=== PATIENT | male | born 1960 | race Caucasian/White ===

== ENCOUNTER → 2020-10-08 11:08 | Outpatient (CLI) | payer OTHER, SELFPAY ==
[2020-10-09 08:28] LABS: SARS-CoV-2 RNA PCR Negative
== END ==
PROVIDERS: PCP Family Medicine Adolescent Medicine; Visit Provider Family Medicine Adolescent Medicine
DX: R50.9 Fever, unspecified (principal); R09.81 Nasal congestion; Z20.822 Contact with and (suspected) exposure to COVID-19
CPT/HCPCS: C9803; U0003; U0005

== ENCOUNTER 2020-10-27 03:05 | Emergency (ER) | payer OTHER, SELFPAY ==
[2020-10-27] VITALS (8 sets, daily range): BP systolic 107–138; BP diastolic 49–71; PULSE 87–104; RESP 14–21; TEMP 36.3; O2SAT 97–100
--- NOTE | ~2020-10-27 | CT_ITS ---
EXAMINATION: CT brain wo con DATE: 10/27/2020 03:39 INDICATION: Syncope. Fall. Head injury. TECHNIQUE: Computed tomography (CT) of the head was performed without intravenous contrast. The dose- length product was 681.00 mGy-cm. The mA was adjusted according to patient size. Iterative reconstruc tion technique was employed. COMPARISON: None FINDINGS: There is a focal hyperdensity at the foramen of Suárez measuring 8 mm. No ventriculomegaly or midline shift. Generalized brain parenchymal volume loss. There are scattered mild periventricular and subcortical white matter changes, most likely related to small vessel ischemic disease (microang iopathy). There is intracranial atherosclerosis. Small mucous retention cyst left maxillary sinus. Ma stoids pneumatized. No depressed skull fractures. IMPRESSION: 1. Small focal 8 mm hyperdensity near the foramen of Suárez. Considerations include hemorrhage given the history of recent trauma versus colloid cyst. Consider correlation with MRI. [employer] radiologist verbally discussed this case with clinician as per documentation in their report, which was faxed and scanned into PACS with this exam. Reviewed, dictated and finalized at location A. IMPRESSION: 1. Small focal 8 mm hyperdensity near the foramen of Suárez. Considerations inc lude hemorrhage given the history of recent trauma versus colloid cyst. Conside r correlation with MRI. [employer] radiologist verbally discussed this case with clinician as per document ation in their report, which was faxed and scanned into PACS with this exam.
--- NOTE | ~2020-10-27 | XR_ITS ---
XR chest 1V 10/27/2020 03:44 Indication: Syncope. History of A. fib. Bypass surgery. Procedure: AP view of the chest Comparison: Comparison to multiple prior studies sequentially, with oldest reviewed study dated 05/08. Findings: There are chronic patchy bilateral infiltrates peripherally. Small right pleural effusion. Status post median sternotomy for CABG. Heart size is normal. No pneumothorax. Impression: 1: Chronic bilateral peripheral infiltrates which may represents atelectasis/scarring, atypical pneum onia or chronic edema. Reviewed, dictated and finalized at location A. Impression: 1: Chronic bilateral peripheral infiltrates which may represents atelectasis/sc arring, atypical pneumonia or chronic edema.
--- NOTE | 2020-10-27 03:19 | ECG_ITS ---
Measurements Intervals [place] Rate: 97 P: MS: 0 QRS: -3 QRSD: 109 T: 145 QT: 330 QTc: 420 Interpretive Statements ATRIAL FIBRILLATION INCOMPLETE RIGHT BUNDLE BRANCH BLOCK CONSIDER ANTERIOR INFARCT, AGE INDETERMINATE HIGH LATERAL INFARCT, AGE INDETERMINATE BASELINE ARTIFACT- I, III, AVL, V4 ABNORMAL ECG Electronically Signed On 10-27-2020 8:11:21 CDT by Ad Jaramillo D.O.
[2020-10-27] MEDS: SODIUM CHLORIDE 0.9% IV 1,000 ML 500 ML IV CONT (03:37)
[2020-10-27 03:45] LABS: Basophils Percent Auto 0.6 % (0.2-1.2); Eosinophils Absolute Auto 0.1 K/mm3 (0-0.3); Eosinophils Percent Auto 1.9 % (0-4.4); Hematocrit 29.6 % (42.0-52.0); Hemoglobin 8.5 g/dL (14.0-18.0); Immature Granulocyte Absolute 0.03 K/mm3 (0.00-0.031); Immature Granulocyte Percent A 0.4 % (0-0.5); Lymphocytes Absolute Auto 1.29 K/mm3 (0.9-3.2); Lymphocytes Percent Auto 18.7 % (18.3-44.2); Mean Corpuscular HGB Conc 28.7 g/dl (32-36); Mean Corpuscular Hemoglobin 21.1 pg (26-34); Mean Corpuscular Volume 73.4 fl (80-100); Mean Platelet Volume 9.9 fl (7.4-10.4); Monocytes Absolute Auto 0.8 K/mm3 (0.1-0.6); Monocytes Percent Auto 11.5 % (2.6-8.5); Neutrophils Absolute Auto 4.6 K/mm3 (1.3-6.7); Neutrophils Percent Auto 66.9 % (45.5-73.1); Platelet Count Result 293 k/mm3 (150-375); Red Blood Count 4.03 M/mm3 (4.6-6.20); Red Cell Distribution Width 21.4 % (11.5-14.5); White Blood Count 6.9 K/mm3 (4.5-10.0)
[2020-10-27 03:58] LABS: Lactic Acid Reflex 1.9 mmol/L (0.7-2.1)
[2020-10-27 03:59] LABS: Alanine Aminotransferase 14 U/L (4-50); Albumin Level 4.2 g/dL (3.5-5.1); Alkaline Phosphatase 171 U/L (38-126); Anion Gap 9 mmol/L (8-16); Aspartate Amino Transferase 28 U/L (17-59); Bilirubin,Total 0.3 mg/dL (0.2-1.3); Blood Urea Nitrogen 18 mg/dL (9-20); Calcium 8.9 mg/dL (8.4-10.2); Carbon Dioxide 28 mmol/L (22-30); Chloride 103 mmol/L (98-107); Estimated CRCL calculation 80 ml/min; Estimated Glomerular Filt Rate > 60; Glucose 207 mg/dL (75-110); Lipase 138 U/L (23-300); Potassium 4.1 mmol/L (3.4-5.0); Sodium 140 mmol/L (137-145)
--- NOTE | 2020-10-27 04:00 | PC.NURSE ---
Patient started complaining of dizziness while talking to this RN at bedside-monitor showing heart rate in the 30's then jumped up to 140's. Patient had additional episodes-Dr Paiz called to bedside, external pacer pads placed in case of need-crash cart at bedside also. Patient denies any chest pain during episodes.
[2020-10-27 04:01] LABS: Hypochromasia 2+ (NORMAL); Platelet Estimate Adequate (Adequate)
[2020-10-27 04:02] LABS: Ovalocytes 1+ (NORMAL)
[2020-10-27 04:08] LABS: Troponin I 0.023 ng/mL (0.000-0.034)
--- NOTE | 2020-10-27 04:27 | ED.GENADULT ---
HPI - General Adult General Chief complaint: Dizziness Stated complaint: syncope, hit head Time Seen by Provider: 10/27/20 03:12 History of Present Illness HPI narrative: Patient 60-year-old gentleman who presents the emergency department with chief complaint of syncope. Patient reports he is a local convenience store and started feeling had a lightheaded and then the next thing he knows he hit his head against a shelf and woke up on the floor. Patient states that he has history of atrial fibrillation also history of a bypass before in the past patient states that currently he feels okay. Patient denies chest pain denies shortness of breath. Related Data Home Medications Medication Instructions Recorded Confirmed furosemide 40 mg PO BID PRN 06/05/19 06/05/19 metformin 1,000 mg PO BID 06/05/19 06/05/19 metoprolol tartrate 150 mg PO BID 06/05/19 06/05/19 zolpidem [Ambien] 10 mg PO HS 06/05/19 06/05/19 albuterol sulfate INHALATION 10/27/20 Allergies Allergy/AdvReac Type Severity Reaction Status Date / Time No Known Allergies Allergy Unknown Verified 10/27/19 16:52 Review of Systems Review of Systems: Narrative: A 10 system review of systems was completed on the patient and is negative except for what is stated in the HPI. Nursing and ancillary documentation was reviewed. PMFSH Comments Patient has history of cardiac disease cardiac bypass and atrial fibrillation COPD and diabetes Social history the patient denies illicit drug use Course Course Emergency Course: Note for the patient was having episodes of tacky bradycardia in the emergency department most likely the bradycardia is the cause for his syncopal episodes. A CT head was obtained that showed 8 possible intraventricular hemorrhage in the area of the foramen of Suárez Vital Signs Vital signs: Vital Signs Temperature 36.3 C L 10/27/20 03:12 Pulse Rate 99 10/27/20 03:12 Respiratory Rate 14 10/27/20 03:12 Blood Pressure 110/49 L 10/27/20 03:12 Pulse Oximetry 100 10/27/20 03:12 Temperature 36.3 C L 10/27/20 03:12 Pulse Rate 99 10/27/20 03:12 Respiratory Rate 14 10/27/20 03:12 Blood Pressure 110/49 L 10/27/20 03:12 Pulse Oximetry 100 10/27/20 03:12 Medical Decision Making Vital Signs Vital Signs: Vital Signs Temperature 36.3 C L 10/27/20 03:12 Pulse Rate 99 10/27/20 03:12 Respiratory Rate 14 10/27/20 03:12 Blood Pressure 110/49 L 10/27/20 03:12 Pulse Oximetry 100 10/27/20 03:12 Temperature 36.3 C L 10/27/20 03:12 Pulse Rate 99 10/27/20 03:12 Respiratory Rate 14 10/27/20 03:12 Blood Pressure 110/49 L 10/27/20 03:12 Pulse Oximetry 100 10/27/20 03:12 Lab Data Result diagrams: 10/27/20 03:33 10/27/20 03:33 Labs: Lab Results 10/27/20 10/27/20 10/27/20 Range/Units 03:33 03:33 03:33 WBC 6.9 (4.5-10.0) K/mm3 RBC 4.03 L (4.6-6.20) M/mm3 Hgb 8.5 L (14.0-18.0) g/dL Hct 29.6 L (42.0-52.0) % MCV 73.4 L (80-100) fl MCH 21.1 L (26-34) pg MCHC 28.7 L (32-36) g/dl RDW 21.4 H (11.5-14.5) % Plt Count 293 (150-375) k/mm3 MPV 9.9 (7.4-10.4) fl Immature Gran % (Auto) 0.4 (0-0.5) % Neut % (Auto) 66.9 (45.5-73.1) % Lymph % (Auto) 18.7 (18.3-44.2) % [place] % (Auto) 11.5 H (2.6-8.5) % Eos % (Auto) 1.9 (0-4.4) % Baso % (Auto) 0.6 (0.2-1.2) % Lymph # (Auto) 1.29 (0.9-3.2) K/mm3 [place] # (Auto) 0.8 H (0.1-0.6) K/mm3 Eos # (Auto) 0.1 (0-0.3) K/mm3 Baso # (Auto) 0.0 (0.0-0.1) K/mm3 Abs Immat Gran (auto) 0.03 (0.00-0.031) K/mm3 Absolute Neuts (auto) 4.6 (1.3-6.7) K/mm3 Absolute Nucleated RBC 0.0 (0.0-0.012) K/mm3 Nucleated RBC % 0.0 (0.0-0.2) % Platelet Estimate Adequate (Adequate) Hypochromasia 2+ (NORMAL) Ovalocytes 1+ (NORMAL) Sodium 140 (137-145) mmol/L Potassium 4.1 (3.4-5.0) mmol/L Chloride 103 (98-107) mmol/L Car
--- NOTE | 2020-10-27 05:20 | PC.NURSE ---
Addendum entered by Dorothy Bray 10/27/20 05:21: i contacted [employer], [facility] and [employer] and all companies did not have the trucks or it would be hours from now Original Note: called hernandez for lights and sirens to usman cook in route
--- NOTE | 2020-10-27 05:37 | PC.NURSE ---
hernandez has arrived
== END 2020-10-27 05:50 | disposition short-term general hospital (02) ==
PROVIDERS: Emergency Provider Emergency Medicine; PCP Family Medicine Adolescent Medicine
DX: I49.5 Sick sinus syndrome (principal); R55 Syncope and collapse; S06.369A Traumatic hemorrhage of cerebrum, unspecified, with loss of consciousness of unspecified duration, initial encounter; W18.30XA Fall on same level, unspecified, initial encounter
CPT/HCPCS: 36415; 70450; 71045; 80053; 83605; 83690; 84484; 85025; 93005; 96360; 96361; 99291; J7030; J7040

== ENCOUNTER → 2021-03-15 02:11 | Outpatient (CLI) | payer OTHER, SELFPAY ==
[2021-03-16 15:33] LABS: SARS-CoV-2 RNA PCR Negative
== END ==
PROVIDERS: PCP Family Medicine Adolescent Medicine; Visit Provider Family Medicine Adolescent Medicine
DX: R50.9 Fever, unspecified (principal); M79.10 Myalgia, unspecified site
CPT/HCPCS: C9803; U0003; U0005

== ENCOUNTER → 2021-06-22 12:47 | Outpatient (CLI) | payer OTHER, SELFPAY ==
--- NOTE | ~2021-06-22 | XR_ITS ---
XR foot LT min 3V DATE: 06/22/2021 13:33 INDICATION: Bilateral hindfoot and heel pain TECHNIQUE: 4 views COMPARISON: None FINDINGS: There is prominent anterior tibial and dorsalis pedis artery calcification. There is soft t issue swelling of the dorsum of the forefoot. Diffuse osteopenia. Prominent plantar and posterior calcaneal enthesopathy. There is mild osteoarthritis at the tarsal area and first metatarsophalangeal joint. IMPRESSION: Prominent plantar and posterior calcaneal enthesopathy Mild osteoarthritis at the tarsal and first metatarsophalangeal joint Osteopenia Arterial calcification Reviewed, dictated and finalized at location A. LY CHAIN PROGRAM MANAGER
--- NOTE | ~2021-06-22 | XR_ITS ---
XR foot RT min 3V DATE: 06/22/2021 13:32 INDICATION: Bilateral hindfoot and heel pain TECHNIQUE: 4 views COMPARISON: None FINDINGS: Prominent plantar and posterior calcaneal enthesopathy, without erosive change or periostit is. There is mild osteoarthritis at the first metatarsophalangeal joint. No fracture, dislocation, periosteal reaction or bone destruction. Anterior tibial and dorsalis pedis and metatarsal artery calcifications are noted; consider possible diabetes. IMPRESSION: Osteopenia Prominent plantar and posterior calcaneal enthesopathy Mild osteoarthritic arthritis at first metatarsophalangeal joint Arterial calcifications including metatarsal artery, suggesting possible diabetes Reviewed, dictated and finalized at location A. KERCHIEF PRESSER IMPRESSION: Osteopenia Prominent plantar and posterior calcaneal enthesopathy Mild osteoarthritic arthritis at first metatarsophalangeal joint Arterial calcifications including metatarsal artery, suggesting possible diabet es
== END ==
PROVIDERS: PCP Family Medicine Adolescent Medicine; Visit Provider Family Medicine Adolescent Medicine
DX: M77.32 Calcaneal spur, left foot (principal); M19.072 Primary osteoarthritis, left ankle and foot; M85.871 Other specified disorders of bone density and structure, right ankle and foot; M77.31 Calcaneal spur, right foot; M19.071 Primary osteoarthritis, right ankle and foot
CPT/HCPCS: 73630

== ENCOUNTER 2021-09-21 12:30 | Outpatient (RCR) | payer OTHER, SELFPAY ==
--- NOTE | 2021-08-29 09:47 | PTOPEVAL ---
PHYSICAL THERAPY EVALUATION AND PLAN OF CARE 08-29-21 Thank you for referring Dmitri Bergeron to [facility] for the diagnosis of B LE lymphdedema. He is scheduled to be seen for therapy? 3 x/week for 5 weeks. Please review, sign, date and return this plan of care SHAHEED. I agree with and certify that the following plan of care is medically necessary. Referring Physician Date Attending Provider: Adam Roberson MD *PT Outpatient Evaluation Document 08/29/21 08:45 SONA (Rec: 08/29/21 09:47 SONA [id number]) Past Medical History Source of Past Medical History Recalled from Previous Visit, Confirmed with Patient/Family Neurological History Hx Neurological Disorders No Significant History Cardiovascular History Hx Atrial Fibrillation Yes Hx Coronary Artery Bypass Graft Yes Hx Coronary Artery Disease Yes Hx Pacemaker Yes Respiratory History Hx Chronic Obstructive Pulmonary Disease Yes: smoker- decreased (COPD) Hx COVID-19 Yes: 2019 Gastrointestinal History Hx Ulcer Yes: bleeding ulcers- cauthaurized Musculoskeletal History Hx Arthritis Yes: B shoulder and hand arthritis Hx Other Musculoskeletal Disorders Yes: B plantar fasciitis Endocrine History Hx Diabetes Yes: Type 2 HEENT History Hx Sinus Problems Yes: allergies Other History Hx Other Medical Conditions Yes: B PVD in LE's; Evaluation Information Problem Diagnosis swelling and pain legs and feet Onset January 2021 Prior Level of Function Activity Level (Last 3 Months) 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, physical work Activity of Daily Living Ability Independent Indoor/Home Mobility Independent Community Mobility Independent Stairs Ability Independent Functional Cognition (Planning, Shopping Independent , Taking Medications) Cooking Yes Cleaning Yes Laundry Yes Shopping Yes Driving Yes Home Setting Home Type House Mobility Assistive Devices (Used Last 3 None Months) Comments Additional Prior Level of Function is not working due to medical Comments issues--Jun 2021; Pain Assessment Timing of Pain Assessment Timing of Pain Assessment Assessment Pain Scale Pain Scale Used Numeric (1 - 10) Self Report Pain Assessment Bilateral Leg(s) Reported Pain Level 4 Pain Radiation Left
--- NOTE | 2021-09-21 14:55 | PCPTNOTE ---
PHYSICAL THERAPY DISCHARGE 09-21-21 Attending Provider: Adam Roberson MD Patient:Dmitri Bergeron Date of :1960 Mr. Bergeron has received a total of 11 PT sessions, from August 29 to today for the diagnosis of B LE lymphedema. The goals have been achieved and he will be discharged from PT at this time. Circumferential measurements from the bottom of the foot to 72 cm: R leg is 593.3 cm, reduced by 24.8 cm and the L leg is 576 cm, reduced by 33.8 cm, compared to the initial evaluation. His skin integrity has improved, but he still has a superficial wound over the R lower leg, which he is putting a dressing over it to protect it from rubbing his pants. Dmitri has compression garments- Circaid Juxtafit for R and L lower leg and PAC band foot/ankle pieces, which he is independent with donning/doffing and reports they are comfortable. Thank you for referring Mr. Bergeron to [facility]. Please review, sign, date and return this discharge summary SHAHEED. I have been updated about the patient's current status and I agree with discharge from the above service at this time. Referring Physician Date
== END 2021-09-22 08:58 | disposition home or self-care (01) ==
LOC: ANHPT 12:30
PROVIDERS: PCP Family Medicine Adolescent Medicine; Visit Provider Orthopaedic Surgery
DX: I87.2 Venous insufficiency (chronic) (peripheral) (principal); L97.301 Non-pressure chronic ulcer of unspecified ankle limited to breakdown of skin; M79.671 Pain in right foot; M79.672 Pain in left foot; M72.2 Plantar fascial fibromatosis
CPT/HCPCS: 29581; 97140; 97161

== ENCOUNTER 2022-07-09 00:05 | Inpatient (IN) | payer OTHER, SELFPAY ==
[2022-07-09] VITALS (35 sets, daily range): BP systolic 99–149; BP diastolic 42–76; PULSE 37–96; RESP 16–27; TEMP 36.3–36.8; O2SAT 86–100
--- NOTE | ~2022-07-09 | XR_ITS ---
XR chest 1V portable 07/10/2022 11:07 Indication: Weakness and shortness of breath Procedure: AP portable chest Comparison: Comparison to multiple prior studies sequentially, with oldest reviewed study dated 11/2018. Findings: Status post median sternotomy for CABG. Moderate cardiomegaly. There is diffuse bilateral a irspace disease which has progressed. Small pleural effusions. No pneumothorax. Pacemaker leads are s table. Impression: 1: Interval progression of diffuse bilateral airspace disease which may represent edema or pneumonia. 2: Small pleural effusions. Reviewed, dictated and finalized at location A. ND MANAGER Impression: 1: Interval progression of diffuse bilateral airspace disease which may represe nt edema or pneumonia. 2: Small pleural effusions.
--- NOTE | ~2022-07-09 | US_ITS ---
Impression: 1: Unremarkable renal ultrasound. No stones, masses or hydronephrosis. US renal BI 07/09/2022 11:41 Procedure: Realtime transabdominal ultrasound of the kidneys and bladder. Indication: Acute renal insufficiency Comparison: No prior studies for comparison. Findings: Renal echotexture is normal bilaterally without hydronephrosis, contour deforming mass or r enal calculus. The right kidney measures 11.1 cm and left kidney measures 12.0 cm. Bladder within no rmal limits. Mildly enlarged prostate gland. Impression: 1: Unremarkable renal ultrasound. No stones, masses or hydronephrosis. Reviewed, dictated and finalized at location A. LIFTER BACON
--- NOTE | ~2022-07-09 | US_ITS ---
US abdomen limited INDICATION: Elevated liver function tests. Increased bilirubin. PROCEDURE: Realtime right upper abdominal ultrasound. COMPARISON: No prior studies for comparison. FINDINGS: The pancreas is normal without focal mass or pancreatic ductal dilation. Liver echotexture is unremarkable. There is mild enlargement of the liver measuring 16.8 cm. There is normal directio nal flow in the portal vein. There are gallstones with gallbladder wall thickening and pericholecystic fluid. Findings compatible with cholecystitis. Trace ascites. Common bile duct measures 5 mm. No sonographic Oliveira's sign. IMPRESSION: 1: Cholelithiasis with gallbladder wall thickening and pericholecystic fluid, consistent with cholecy stitis. Reviewed, dictated and finalized at location A. ROL PANEL OPERATOR CRUDE UNIT IMPRESSION: 1: Cholelithiasis with gallbladder wall thickening and pericholecystic fluid, c onsistent with cholecystitis.
--- NOTE | ~2022-07-09 | XR_ITS ---
XR chest ET placement DATE: 07/10/2022 15:59 INDICATION: ET tube placement TECHNIQUE: Portable AP view on 07/10/2022 at 1551 hours COMPARISON: 07/10/2022 portable AP chest at 1101 hours FINDINGS: ET tube tip is approximately 5.4 cm above yahir. NG tube in the stomach, progressing into the body of the stomach and then turning superiorly, distal tip overlying the gastric fundus, directed cephalad. Left-sided transvenous pacemaker device with leads overlying right atrium and right ventricle. Status post sternotomy. Electronic monitor device overlies the lower left chest wall. There is pulmonary vascular congestion and redistribution and extensive diffuse bilateral pulmonary i nfiltrates, left greater than right, overall increased since 11 1 hours today. Diffuse osteopenia. Degenerative spurring of the thoracic spine. IMPRESSION: ET tube tip 5.4 cm above yahir NG tube in stomach Increased bilateral pulmonary infiltrates since 1101 hours today. Extensive bilateral pulmonary infil trates likely due to pulmonary edema; pneumonia or aspiration are not excluded. Reviewed, dictated and finalized at Location A. Reviewed, dictated and finalized at location B. HER DRIER IMPRESSION: ET tube tip 5.4 cm above yahir NG tube in stomach Increased bilateral pulmonary infiltrates since 1101 hours today. Extensive ifeanyi ateral pulmonary infiltrates likely due to pulmonary edema; pneumonia or aspira tion are not excluded.
--- NOTE | ~2022-07-09 | XR_ITS ---
XR chest 1V portable 07/09/2022 00:39 Indication: Pneumonia versus COPD. Procedure: AP portable chest Comparison: Comparison to multiple prior studies sequentially, with oldest reviewed study dated 05/08. Findings: Status post median sternotomy for CABG. Cardiomegaly. There is developing left-sided airspa ce disease. Interstitial infiltrates of the right lung base unchanged. No pleural effusion or pneumot horax. No acute osseous abnormality. Impression: 1: Developing asymmetric left-sided airspace disease which may represent pneumonia or asymmetric velvet a. 2: Cardiomegaly. Reviewed, dictated and finalized at location A. AL CARE SERVICE WORKER Impression: 1: Developing asymmetric left-sided airspace disease which may represent pneumo nancy or asymmetric edema. 2: Cardiomegaly.
--- NOTE | ~2022-07-09 | CT_ITS ---
EXAMINATION: CTA chest PE protocol DATE: 07/09/2022 08:58 LEATHER GOODS II ASSEMBLER INDICATION: Elevated d-dimer. Dyspnea. TECHNIQUE: Computed tomographic angiography (CTA) of the chest was performed with 100 mL Omnipaque-35 0 intravenous contrast. The dose-length product was 555.69 mGy-cm. Maximum intensity projection 3D-re constructions of the aorta and other arteries were constructed by the technologist on a separate work station. COMPARISON: Chest dated 07/09/2022. FINDINGS: Study is technically adequate without evidence for pulmonary embolism. Cardiomegaly. There is atherosclerosis of the aorta and coronary arteries. There is left atrial enlargement. Trace pleura l effusions. There are diffuse peripheral interstitial changes with interlobular septal thickening an d areas of honeycombing, consistent with usual interstitial pneumonitis. There is bilateral airspace consolidation, left lower lobe greater than right, consistent with pneumonia. No pneumothorax. There is debris in the esophagus, possibly from reflux. Status post median sternotomy for CABG. Moderate th oracic spondylosis with accentuated kyphosis. No focal lytic or blastic lesions. There is mediastinal and bilateral hilar lymphadenopathy. There are coarse calcifications of the pancreas, consistent wit h chronic pancreatitis. There is thickening of the adrenal glands, likely hyperplasia. There is sligh tly nodular appearance to the liver surface, suspicious for cirrhosis. IMPRESSION: 1. No evidence for pulmonary embolism. 2: Bilateral patchy areas of airspace consolidation predominantly affecting the lower lobes, left gr eater than right. Findings compatible with pneumonia. There is chronic superimposed interstitial lung disease/fibrosis. 3: Cardiomegaly. 4: Mediastinal and bilateral hilar lymphadenopathy. Lymphoma or metastatic disease or not excluded. Reviewed, dictated and finalized at location A. HER GOODS II ASSEMBLER IMPRESSION: 1. No evidence for pulmonary embolism. 2: Bilateral patchy areas of airspace consolidation predominantly affecting th e lower lobes, left greater than right. Findings compatible with pneumonia. The re is chronic superimposed interstitial lung disease/fibrosis. 3: Cardiomegaly. 4: Mediastinal and bilateral hilar lymphadenopathy. Lymphoma or metastatic dis ease or not excluded.
--- NOTE | ~2022-07-09 | CT_ITS ---
EXAMINATION: CT brain wo con DATE: 07/13/2022 11:23 INDICATION: Cardiac arrest. TECHNIQUE: Computed tomography (CT) of the head was performed without intravenous contrast. The mA wa s adjusted according to patient size. Iterative reconstruction technique was employed. The dose-lengt h product was 681.00 mGy-cm. COMPARISON: Head CT 07/10/2022, 10/27/20 FINDINGS: There are small old infarcts in the cerebellum bilaterally. 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 There is a small infarct in right frontal lobe. There is no acute isch emic infarct or intracranial hemorrhage. The ventricles are normal in size. Partially visualized is e xtensive dental disease. There is mild mucosal thickening in the paranasal sinuses. The orbits are no rmal. There are bilateral mastoid effusions. IMPRESSION: 1. Small infarct in right frontal lobe not seen on 07/10/2022, likely acute or subacute. 2. Old infarcts in the cerebellum. 3. 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 No hydrocephalus. Reviewed, dictated and finalized at location E. CAN FEEDER IMPRESSION: 1. Small infarct in right frontal lobe not seen on 07/10/2022, likely acute or s ubacute. 2. Old infarcts in the cerebellum. 3. 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 No h ydrocephalus.
--- NOTE | ~2022-07-09 | XR_ITS ---
XR abdomen NG/feed tube insert INDICATION: Evaluate NG tube position. TECHNIQUE: Limited KUB perform for evaluating NG tube . COMPARISON: No prior studies for comparison. FINDINGS: NG tube tip in the stomach. Visualized bowel gas pattern is nonspecific. Dilated loops of bowel are seen in the upper abdomen. There is diffuse bilateral airspace disease which may represent edema or pneumonia. IMPRESSION: 1: NG tube tip in the stomach. Reviewed, dictated and finalized at location A. ICAL PSYCHOLOGY TEACHER
--- NOTE | ~2022-07-09 | CT_ITS ---
EXAMINATION: CT brain wo con DATE: 07/10/2022 22:34 INDICATION: ams . TECHNIQUE: Computed tomography (CT) of the head was performed without intravenous contrast. The mA wa s adjusted according to patient size. Iterative reconstruction technique was employed. The dose-lengt h product was 832.33 mGy-cm. COMPARISON: 10/27/2020 FINDINGS: Partially visualized endotracheal and orogastric tubes. No acute intracranial hemorrhage or extra-axial fluid collection. No hydrocephalus, mass, or herniation. No acute ischemic infarct. Unremarkable dural venous sinus attenuation. No acute osseous abnormality. Fluid levels in the bilateral maxillary and sphenoid sinuses likely related to intubation. Retention cysts or polyps in the bilateral maxillary sinuses. The remaining aerated spaces are clear. Mild chronic white matter change and atrophy. Atherosclerotic intracranial calcifications. Stable col loid cyst at the foramen of Suárez. IMPRESSION: No acute intracranial process. Reviewed, dictated and finalized at location K. ONAL DELIVERY DRIVER
--- NOTE | ~2022-07-09 | XR_ITS ---
XR chest 1V portable 07/12/2022 11:26 Indication: Readjustment of endotracheal tube Procedure: AP portable chest Comparison: Comparison to multiple prior studies sequentially, with oldest reviewed study dated 12/2021. Findings: Cardiomegaly. Persistent extensive bilateral airspace disease unchanged. Endotracheal tube tip 6.3 cm above the yahir. NG tube in the stomach. Status post median sternotomy for CABG. No pneum othorax. No acute osseous abnormality. Impression: 1: Stable diffuse bilateral airspace disease which may represent pneumonia or edema. Reviewed, dictated and finalized at location A. FIELD TECHNICIAN Impression: 1: Stable diffuse bilateral airspace disease which may represent pneumonia or e kenneth.
--- NOTE | ~2022-07-09 | XR_ITS ---
MODIFIED ESOPHAGRAM HISTORY: Aspiration pneumonia TECHNIQUE: Modified barium esophagram was performed by speech pathologist under radiologist fluorosco pic guidance. This was recorded on tape. The exam was reviewed on 07/09/2022 11:36 DRESSMAKER HELPER. The DAP for this procedure was 1 Gycm2. Fluoroscopy time is 1.8 minutes. FINDINGS: Lateral projection of the cervical spine demonstrates normal alignment. There is normal s wallowing function without penetration or aspiration. There is mild vallecular residue.. IMPRESSION: 1: No evidence for laryngeal penetration or aspiration. 2: Please refer to speech pathologist report for additional detail. Reviewed, dictated and finalized at location A. SMAKER HELPER
--- NOTE | ~2022-07-09 | XR_ITS ---
EXAMINATION: XR chest 1V portable INDICATION: Respiratory failure TECHNIQUE: Portable AP chest at 0516 hours COMPARISON: 07/10/2022 FINDINGS: The endotracheal tube ends approximately 5.1 cm above the ayhir. The nasogastric tube is f ollowed as far as the stomach. Its tip is beyond the inferior margin of the radiograph. Cardiomegaly is noted. Diffuse opacities persist throughout all lung zones with slight worsening in the right mid and lower lung zones no pleural effusion or pneumothorax. Median sternotomy wires are consistent with prior cardiac surgery. A dual-lead cardiac pacemaker of the left chest wall ends with leads in expec abdullahi locations. IMPRESSION: 1. Diffuse lung disease with slight worsening in the right mid and lower lung zones, consistent with pneumonia and/or pulmonary edema. Reviewed, dictated and finalized at location A. A AND P MECHANIC IMPRESSION: 1. Diffuse lung disease with slight worsening in the right mid and lower lung z ones, consistent with pneumonia and/or pulmonary edema.
--- NOTE | ~2022-07-09 | XR_ITS ---
EXAMINATION: XR chest 1V portable Exam Date/Time: 07/09/2022 16:10 TRACTOR MECHANIC HELPER HISTORY: increased shortness of breath Comparison: 07/09/2022 12:37 AM, [facility]PA, same date. RESULT: Lines, tubes, and devices: Intact sternotomy wires. Left chest pacer with intact leads. Loop recorde r. Incompletely visualized suture lines in the left upper quadrant. Lungs and pleura: Worsening patchy airspace disease and in the left lung mid and lower lung and in t he right lower lung. Stable diffuse reticulonodular opacities. Cardiomediastinal silhouette: Stable. Other: No acute osseous or upper abdominal finding. IMPRESSION: Worsening pulmonary opacities, compared to the prior x-ray, likely representing multifocal pneumonia overlying chronic interstitial changes. Reviewed, dictated and finalized at location K. TOR MECHANIC HELPER
--- NOTE | ~2022-07-09 | XR_ITS ---
EXAMINATION: XR chest 1V portable DATE: 07/12/2022 06:18 INDICATION: Intubation TECHNIQUE: frontal view of the chest was obtained. COMPARISON: Chest radiograph dated 07/11/22 FINDINGS: Endotracheal tube tip 6.5 cm above the yahir. Nasogastric tube extends below the left hemidiaphragm with distal tip collimated off the study. A significant change in diffuse bilateral patchy airspace opacities throughout both lungs. No pneumot horax or definitive pleural effusion. Cardiomegaly. Median sternotomy wires and mediastinal surgical clips are seen, likely from prior coronary artery bypass grafting. Dual lead pacemaker seen with lead s projecting over the expected locations of the right atrium and right ventricle. Left pectoral imp lantable registered nurse cardiac. IMPRESSION: 1. Unchanged bilateral diffuse patchy airspace opacities throughout both lungs consistent with pneumo nancy or pulmonary edema. 2. Cardiomegaly. Reviewed, dictated and finalized at location A. SSRS DEVELOPER IMPRESSION: 1. Unchanged bilateral diffuse patchy airspace opacities throughout both lungs consistent with pneumonia or pulmonary edema. 2. Cardiomegaly.
--- NOTE | ~2022-07-09 | XR_ITS ---
EXAMINATION: XR chest 1V portable INDICATION: Respiratory failure TECHNIQUE: Portable AP chest at 0526 hours COMPARISON: 07/12/2022 FINDINGS: The endotracheal tube ends approximately 5.2 cm above the yahir. The nasogastric tube is f ollowed as far as the stomach. Its tip is beyond the inferior margin of the radiograph. Diffuse inter stitial and airspace opacities persist throughout all lung zones without significant change. No pleur al effusion or pneumothorax. Cardiomegaly is noted. A dual-lead cardiac pacemaker of the left chest w all ends with leads in expected locations. There are changes of prior cardiac surgery. IMPRESSION: 1. Stable diffuse lung disease, consistent with pneumonia and/or pulmonary edema. Reviewed, dictated and finalized at location A. SORTER IMPRESSION: 1. Stable diffuse lung disease, consistent with pneumonia and/or pulmonary velvet a.
--- NOTE | 2022-07-09 00:10 | ECG_ITS ---
Measurements Intervals [place] Rate: 86 P: RI: 0 QRS: -74 QRSD: 179 T: 104 QT: 423 QTc: 509 Interpretive Statements ELECTRONIC VENTRICULAR PACEMAKER WITH OCCASIONAL PREMATURE VENTRICULAR CONTRACTIONS NO FURTHER INTERPRETATION POSSIBLE COMPARED TO ECG 10/27/2020 04:04:25 VENTRICULAR PACED RHYTHM IS PRESENT Electronically Signed On 07-09-2022 13:36:21 COMMERCIAL REAL ESTATE ATTORNEY by Tera Messer M.D.
[2022-07-09] MEDS: ALBUTEROL SULFATE NEB 2.5 MG/3 ML INH 15 MG INHALATION (00:20)
[2022-07-09] MEDS: IPRATROPIUM BR 0.02% INH SOLN 0.5 MG/2.5 ML VIAL 1.5 MG INHALATION (00:20)
[2022-07-09] MEDS: MAGNESIUM SULF 2 GM/WATER 50ML 2 GM/50 ML BAG IVPB (00:20)
[2022-07-09] MEDS: methylPREDNISolone SOD SUCC 125 MG VIAL IV PUSH (00:20)
[2022-07-09 00:22] LABS: Glucose Point of Care 67 mg/dl (65-105)
--- NOTE | 2022-07-09 00:24 | ED.GENADULT ---
HPI - General Adult General Chief complaint: Shortness of Breath/Dyspnea Stated complaint: SOB History of Present Illness HPI narrative: this is a 62-year-old male with history of COPD and asthma presenting ED with difficulty breathing. Patient had a flu-like illness 1 week ago but was recovering until Sunday. Since Sunday has been steadily getting worse. He has been taking his medications as directed. Patient notes that he has had increased sputum production, increased shortness of breath. He denies fever, chills, nausea, vomiting or diarrhea. Been taking his inhalers at home with no relief. Related Data Home Medications Medication Instructions Recorded Confirmed zinc sulfate-vitamin C 200 mg-100 tablet PO DAILY 07/13/21 08/24/21 mg tablet Allergies Allergy/AdvReac Type Severity Reaction Status Date / Time No Known Allergies Allergy Unknown Verified 07/09/22 00:12 Review of Systems Review of Systems: CONSTITUTIONAL: Denies night sweats. EYES: No eye pain ENT: Denies rhinorrhea CARDIOVASCULAR: Denies palpitations RESPIRATORY: Denies hemoptysis GASTROINTESTINAL: Denies hematemesis GENITOURINARY: Denies hematuria. SKIN: Denies rash MUSCULOSKELETAL: Denies myalgia. NEUROLOGIC: Denies weakness. PSYCHIATRIC: Denies delusions PMFSH Past Medical History Medical History Afib Anemia Arthritis Cellulitis Constipation Depression Memory loss Plantar fasciitis, bilateral Venous stasis ulcer of ankle limited to breakdown of skin Vertigo Surgical History Surgical History H/O colonoscopy 03/2021 per patient questionnaire History of coronary artery bypass graft x 2012 History of maze procedure ablation for atrial fib History of permanent cardiac pacemaker placement 10/2020 per patient questionnaire Family History Family History Other Arthritis Asthma Depression Diabetes mellitus Heart disease Social History Social History Smoking packs per day: 1 Smoking cigarettes per day: 20.0 Years smoked: 30 Smoking pack-years: 30.00 Smoking status: Current every day smoker Tobacco type: cigarettes Second hand tobacco smoke exposure: No Alcohol intake: current Drinks per week: 1 Substance use: never Substance use type: does not use 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 EYES: EOMI, NOSE: Atraumatic NECK: Trachea midline RESPIRATORY: increased work of breathing. Coarse sounds in all villa. Crackles in the left lower lobe CARDIOVASCULAR: regular rhythm, no peripheral edema, ABDOMINAL: Non-distended no guarding or rebound nontender MUSCULOSKELETAl: No obvious deformities NEURO: Alert. Moving 4/4 extremities SKIN:: Warm, dry. Normal color PSYCHIATRIC: Normal affect Course Vital Signs Vital signs: Vital Signs Temperature 97.6 F 07/09/22 00:03 Pulse Rate 96 07/09/22 00:03 Respiratory Rate 16 07/09/22 00:03 Blood Pressure 137/76 07/09/22 00:03 Pulse Oximetry 91 07/09/22 00:03 Oxygen Delivery Room Air 07/09/22 00:03 Temperature 97.6 F 07/09/22 00:03 Pulse Rate 80 07/09/22 01:16 Respiratory Rate 27 H 07/09/22 01:16 Blood Pressure 105/44 L 07/09/22 01:11 Pulse Oximetry 100 07/09/22 01:16 Oxygen Delivery Nasal Cannula 07/09/22 00:35 Oxygen Flow Rate 2 07/09/22 00:35 Medical Decision Making MDM Narrative Medical decision making narrative: This is a 62-year-old male presenting ED wi
--- NOTE | 2022-07-09 00:36 | PC.NURSE ---
ERP notified of patients bedside blood glucose. Patient given sandwich and juice.
[2022-07-09 00:38] LABS: Hemoglobin 9.2 g/dL (14.0-18.0); Mean Corpuscular HGB Conc 30.7 g/dl (32-36); Mean Corpuscular Hemoglobin 21.2 pg (26-34); Mean Corpuscular Volume 69.1 fl (80-100); Mean Platelet Volume 9.9 fl (7.4-10.4); Platelet Count Result 186 k/mm3 (150-375); Red Blood Count 4.34 M/mm3 (4.6-6.20); Red Cell Distribution Width 21.8 % (11.5-14.5)
[2022-07-09 00:47] LABS: Prothrombin Time 21.6 Seconds (11.1-14.7)
[2022-07-09 00:48] LABS: Partial Thromboplastin Time 40.6 SECONDS (22.3-36.8)
[2022-07-09 00:50] LABS: Anion Gap 15 mmol/L (8-16); Blood Urea Nitrogen 66 mg/dL (9-20); Calcium 7.5 mg/dL (8.4-10.2); Carbon Dioxide 25 mmol/L (22-30); Chloride 84 mmol/L (98-107); Glucose 71 mg/dL (65-110); Magnesium 1.7 mg/dL (1.6-2.3); Potassium 3.5 mmol/L (3.4-5.0); Sodium 124 mmol/L (137-145)
[2022-07-09 00:55] LABS: NT Pro B Type Natriuretic Pept 21000 pg/mL (5-100)
[2022-07-09 01:02] LABS: White Blood Count 0.5 K/mm3 (4.5-10.0)
[2022-07-09 01:05] LABS: Estimated CRCL calculation 36 ml/min; Estimated Glomerular Filt Rate 34; Troponin I 0.054 ng/mL (0.000-0.034)
[2022-07-09 01:08] LABS: Total Cells Counted 100
[2022-07-09 01:09] LABS: Band Neutrophils Percent 28 % (0-6); Eosinophils Absolute Manual 0.02 K/mm3 (0.02-0.5); Eosinophils Percent Manual 4 % (0-4); Lymphocytes Absolute Manual 0.18 K/mm3 (1.1-4.5); Lymphocytes Percent Manual 36 % (18-44); Monocytes Absolute Manual 0.02 K/mm3 (0.1-0.90); Monocytes Percent Manual 4 % (3-9); Neutrophils Absolute Manual 0.28 K/mm3 (1.3-6.7); Neutrophils Percent Manual 28 % (46-73)
[2022-07-09 01:10] LABS: Anisocytosis 2+ (NORMAL); Hypochromasia 2+ (NORMAL); Microcytosis 2+ (NORMAL); Platelet Estimate Adequate (Adequate)
[2022-07-09 01:11] LABS: Ovalocytes 1+ (NORMAL); Schistocytes None Seen (NORMAL)
[2022-07-09 01:12] LABS: Influenza A QL RT-PCR Positive (Negative); Influenza B QL RT-PCR Negative (Negative); SARS-CoV-2 RNA PCR Negative
[2022-07-09 01:14] LABS: D Dimer 1.25 ug/mL (<0.48)
--- NOTE | 2022-07-09 01:33 | PC.NURSE ---
Patient to CT via stretcher.
[2022-07-09 01:46] LABS: Alanine Aminotransferase 27 U/L (6-50); Albumin Level 3.8 g/dL (3.5-5.1); Alkaline Phosphatase 109 U/L (38-126); Aspartate Amino Transferase 68 U/L (17-59); Bilirubin,Total 1.1 mg/dL (0.2-1.3)
--- NOTE | 2022-07-09 02:21 | PM.IMHP ---
H&P: HPI History of Present Illness Date/Time: 07/09/22 02:21 Chief Complaint: 62 years old male with past medical history of COPD CHF venous stasis lower extremity ulcer diabetes AFib status post pacemaker presented to the hospital with shortness of breath started a week ago associated with cough associated with flu-like symptoms with congestion and sore throat and generalized weakness patient start recovering but for the past 24 hours shortness of breath start worsening patient now is having shortness of breath at rest he also have worsening cough and lower extremity edema patient failed outpatient therapy with inhaler treatment and diuretics at the ER patient was found to have leukopenia elevated creatinine mildly elevated troponin BNP was elevated CT scan of the chest shows pneumonia flu was positive D-dimer was elevated patient also has hyponatremia of 124 patient will be admitted to the hospital for evaluation and management of influenza with probable secondary bacterial infection leukopenia acute hyponatremia COPD exacerbation and CHF exacerbation associated with acute renal failure Review of Systems Review of Systems: Twelve system review was done negative except above PMFSH Past Medical History Medical History Afib Anemia Arthritis Cellulitis Constipation Depression Memory loss Plantar fasciitis, bilateral Venous stasis ulcer of ankle limited to breakdown of skin Vertigo Surgical History Surgical History H/O colonoscopy 03/2021 per patient questionnaire History of coronary artery bypass graft x 2012 History of maze procedure ablation for atrial fib History of permanent cardiac pacemaker placement 10/2020 per patient questionnaire Family History Family History Other Arthritis Asthma Depression Diabetes mellitus Heart disease Social History Social History Smoking packs per day: 1 Smoking cigarettes per day: 20.0 Years smoked: 30 Smoking pack-years: 30.00 Smoking status: Current every day smoker Tobacco type: cigarettes Second hand tobacco smoke exposure: No Alcohol intake: current Drinks per week: 1 Substance use: never Substance use type: does not use 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 [employer] Gender identity (if verbalized by the patient): Male Sexual Orientation (if Verbalized by the Patient): Straight or Heterosexual Spiritual care concerns: Yes Agree to blood products: Yes Meds Home Medications and Allergies Home Medications Medication Instructions Recorded Confirmed Type zinc sulfate-vitamin C 200 mg-100 tablet PO DAILY 07/13/21 08/24/21 History mg tablet furosemide 20 mg tablet 40 mg PO BID PRN Edema #120 tabs 11/11/21 Rx metolazone 5 mg tablet 5 mg PO DAILY #30 tabs 03/06/22 Rx trazodone 100 mg tablet 100 mg PO QHS PRN sleep #30 tabs 03/07/22 Rx albuterol sulfate 90 mcg/actuation 2 puff inhalation Q4H PRN 05/02/22 Rx aerosol inhaler bronchospasm #8.5 grams zolpidem 10 mg tablet 10 mg PO QHS PRN sleep #30 tabs 05/30/22 Rx fluticasone 250 mcg-salmeterol 50 1 inh inhalation BID #60 ea 06/30/22 Rx mcg/dose blistr powdr for inhalation (Advair Diskus) metformin 1,000 mg tablet 1,000 mg PO BID #60 tabs 06/30/22 Rx Allergies Allergy/AdvReac Type Severity Reaction Status Date / Time No Known Allergies Allergy Unknown Verified 07/09/22 00:12 Vital Signs Vital Signs - 24 hr 07/09/22 00:03 07/09/22 00:22 07/09/22 00:35 Temperature 97.6 F Pulse Rate 96 84 Respiratory Rate 16 26 H Blood Pressure 137/76 Pulse Oximetry 91 96 Oxygen Delivery Room Air Nasal Cannula Oxygen Flow Rate 2 07/09/22 00:35 07/09/22 00:15 07/09/22 00:45 Temperature Pulse Rate 86 80 Respira
--- NOTE | 2022-07-09 03:01 | PC.NURSE ---
Unable to obtain add on labs. 6 attempts, unsuccessful, phlebotomy notified to obtain them.
--- NOTE | 2022-07-09 03:05 | PC.NURSE ---
This patient, Dmitri Bergeron, was admitted to IMU Room 200-01. Patient/family oriented to hospital policies and general routines including ID bracelet, bed and alarms, visiting hours, pain management, procedures, bathroom and other care routines, personal items, smoking policy, room service/diet, and visiting hours. Information on how to activate the Rapid Response Team has been discussed. Patient/Family are encouraged to report perceived risks to care and to ask questions if they do not understand what they are told or what they should do.
[2022-07-09] MEDS: FUROSEMIDE INJ 40 MG/4 ML VIAL 20 MG IV PUSH ×2 (03:59→16:33)
[2022-07-09 04:29] LABS: Creatine Kinase 64 U/L (55-170); Sodium 123 mmol/L (137-145); Uric Acid 9.2 mg/dL (3.5-8.5)
[2022-07-09 04:31] LABS: Rheumatoid Factor 14.1 IU/ML (<12)
[2022-07-09 04:59] LABS: Total Protein Urine Random 22 mg/dL
[2022-07-09 05:07] LABS: Potassium Urine Random 24.2 meq/L; Sodium Urine Random 40 meq/L
[2022-07-09 05:08] LABS: Troponin I 0.053 ng/mL (0.000-0.034)
[2022-07-09 05:27] LABS: Creatinine Urine 54.9 mg/dL
[2022-07-09 05:32] LABS: Hepatitis B Surface Antigen Negative (Negative)
[2022-07-09] MEDS: HEPARIN SODIUM 5,000 UNITS/ML VIAL 5000 UNITS SUB-Q ×3 (05:34→21:22)
[2022-07-09 05:37] LABS: HAV RESULT Negative (Negative); Hepatitis B Core IgM Result Negative (Negative)
[2022-07-09 05:49] LABS: Hepatitis C Virus Antibody Negative (Negative)
--- NOTE | 2022-07-09 06:38 | P.PNIM_ITS ---
Progress Note: A&P Assessment and Plan (1) Sepsis: Code(s): A41.9 - Sepsis, unspecified organism Status: Acute Assessment and Plan: * Patient meets SIRS criteria with tachypnea, hypotension, source of infection, leukocytopenia * Lactic acid pending * Source of infection: Atypical aspiration pneumonia * Blood cultures pending * Sputum culture pending * Continue Primaxin, vancomycin, and azithromycin * MRSA swab ordered * Continue IV fluids at 75ml/hr an hour * Qsofa score is 2 (2) Acute respiratory failure: Code(s): J96.00 - Acute respiratory failure, unspecified whether with hypoxia or hypercapnia Status: Acute Assessment and Plan: * Tripod position, unable to complete sentences, increasing oxygen demand, currently on 5L * Saturation in ED 86% * Secondary to aspiration PNA and COPD * Supplemental oxygen to maintain saturations >90% * Worsening oxygen, consider ABG (3) Pneumonia: Code(s): J18.9 - Pneumonia, unspecified organism Status: Acute Assessment and Plan: * CTA: No PE, consolidation in the lower lobes, left > right, possible aspiration, debris found in the esophagus * ST for swallow eval * Cefepime and vancomycin, will switch cefepime to Primaxin and add azithromycin * WBC 0.3 * Neb treatments * Supplemental Oxygen as indicated * NPO diet * Sputum culture pending * Blood cultures pending (4) Chronic diastolic (congestive) heart failure: Code(s): I50.32 - Chronic diastolic (congestive) heart failure Status: Acute Assessment and Plan: * Acute and of chronic most likely diastolic CHF exacerbation associated with elevated troponin * Serial troponin flat most likely related to CHF exacerbation * Cardiology consult * furosemide 20mg IV BID, stopped at that time * BNP 63378 * Sodium noted to be 123 * Daily weights * Trend urine output * Strict I&Os * Trend renal function with BECKY findings (5) Mixed hyperlipidemia: Code(s): E78.2 - Mixed hyperlipidemia Status: Acute Assessment and Plan: * CK is 64 * AST/ALT stable * No home statin * Lipid panel Cholesterol 91, HDL 15, LDL , Triglycerides 82 (6) Essential (primary) hypertension: Code(s): I10 - Essential (primary) hypertension Status: Acute Assessment and Plan: * Appears hypotensive, currently 99/43 * Not on any antihypertensives at home * Trend BP * adjust therapy as indicated (7) Paroxysmal atrial fibrillation: Code(s): I48.0 - Paroxysmal atrial fibrillation Status: Acute Assessment and Plan: * EKG does shows paced rhythm * Underlying A.Fib * Cardiology is consulted * Consider anticoagulation * Trend Heart rate (8) Diabetes mellitus: Qualifiers: Diabetes mellitus complication status: without complication Diabetes mellitus predatory animal exterminator insulin use: without long-term use Diabetes mellitus type: type 2 Qualified Code(s): E11.9 - Type 2 diabetes mellitus without complications Code(s): E11.9 - Type 2 diabetes mellitus without complications Status: Acute Assessment and Plan: * Current glucose is 71 * Insulin Lispro sliding scale, * Accu-checks qAc and HS * Hold oral metformin for now * HgbA1c 5.7 * Insulin sliding
--- NOTE | 2022-07-09 06:38 | PM.IMPN ---
Progress Note: A&P Assessment and Plan (1) Sepsis: Code(s): A41.9 - Sepsis, unspecified organism Status: Acute Assessment and Plan: Patient meets SIRS criteria with tachypnea, hypotension, source of infection, leukocytopenia Lactic acid pending Source of infection: Atypical aspiration pneumonia Blood cultures pending Sputum culture pending Continue Primaxin, vancomycin, and azithromycin MRSA swab ordered Continue IV fluids at 75ml/hr an hour Qsofa score is 2 (2) Acute respiratory failure: Code(s): J96.00 - Acute respiratory failure, unspecified whether with hypoxia or hypercapnia Status: Acute Assessment and Plan: Tripod position, unable to complete sentences, increasing oxygen demand, currently on 5L Saturation in ED 86% Secondary to aspiration PNA and COPD Supplemental oxygen to maintain saturations >90% Worsening oxygen, consider ABG (3) Pneumonia: Code(s): J18.9 - Pneumonia, unspecified organism Status: Acute Assessment and Plan: CTA: No PE, consolidation in the lower lobes, left > right, possible aspiration, debris found in the esophagus ST for swallow eval Cefepime and vancomycin, will switch cefepime to Primaxin and add azithromycin WBC 0.3 Neb treatments Supplemental Oxygen as indicated NPO diet Sputum culture pending Blood cultures pending (4) Chronic diastolic (congestive) heart failure: Code(s): I50.32 - Chronic diastolic (congestive) heart failure Status: Acute Assessment and Plan: Acute and of chronic most likely diastolic CHF exacerbation associated with elevated troponin Serial troponin flat most likely related to CHF exacerbation Cardiology consult furosemide 20mg IV BID, stopped at that time BNP [id number] Sodium noted to be 123 Daily weights Trend urine output Strict I&Os Trend renal function with BECKY findings (5) Mixed hyperlipidemia: Code(s): E78.2 - Mixed hyperlipidemia Status: Acute Assessment and Plan: CK is 64 AST/ALT stable No home statin Lipid panel Cholesterol 91, HDL 15, LDL , Triglycerides 82 (6) Essential (primary) hypertension: Code(s): I10 - Essential (primary) hypertension Status: Acute Assessment and Plan: Appears hypotensive, currently 99/43 Not on any antihypertensives at home Trend BP adjust therapy as indicated (7) Paroxysmal atrial fibrillation: Code(s): I48.0 - Paroxysmal atrial fibrillation Status: Acute Assessment and Plan: EKG does shows paced rhythm Underlying A.Fib Cardiology is consulted Consider anticoagulation Trend Heart rate (8) Diabetes mellitus: Qualifiers: Diabetes mellitus complication status: without complication Diabetes mellitus terminal operations supervisor insulin use: without terminal operations supervisor use Diabetes mellitus type: type 2 Qualified Code(s): E11.9 - Type 2 diabetes mellitus without complications Code(s): E11.9 - Type 2 diabetes mellitus without complications Status: Acute Assessment and Plan: Current glucose is 71 Insulin Lispro sliding scale, Accu-checks qAc and HS Hold oral metformin for now HgbA1c 5.7 Insulin sliding scale Trend glucose Adjust therapy as indicated (9) CAD (coronary artery disease): Qualifiers: Associated angina: without angina Coronary Disease-Associated Artery/Lesion type: [place] artery [place] vs. transplanted heart: [place] heart Qualified Code(s): I25.10 - Atherosclerotic heart disease of [place] coronary artery without angina pectoris Code(s): I25.10 - Atherosclerotic heart disease of [place] coronary artery without angina pectoris Status: Acute Assessment and Plan: CABG x 3 in the past Start low dose aspirin Telemonitor Cardiology on board (10) COPD exacerba
--- NOTE | 2022-07-09 06:54 | ECG_ITS ---
Measurements Intervals [place] Rate: 81 P: PA: 0 QRS: -62 QRSD: 177 T: 105 QT: 466 QTc: 543 Interpretive Statements ELECTRONIC VENTRICULAR PACEMAKER WITH OCCASIONAL PREMATURE VENTRICULAR CONTRACTIONS NO FURTHER INTERPRETATION POSSIBLE COMPARED TO ECG 07/09/2022 00:13:15 NO SIGNIFICANT CHANGES Electronically Signed On 07-09-2022 13:36:52 RESEARCH ASSISTANT MEMBER by Tera Messer M.D.
[2022-07-09 07:04] LABS: Hematocrit 28.8 % (42.0-52.0); Hemoglobin 8.9 g/dL (14.0-18.0); Immature Platelet Fraction Pct 5.2 % (0.9-11.2); Mean Corpuscular HGB Conc 30.9 g/dl (32-36); Mean Corpuscular Hemoglobin 21.1 pg (26-34); Mean Corpuscular Volume 68.2 fl (80-100); Mean Platelet Volume 9.7 fl (7.4-10.4); Platelet Count Result 163 k/mm3 (150-375); Red Blood Count 4.22 M/mm3 (4.6-6.20); Red Cell Distribution Width 21.8 % (11.5-14.5)
[2022-07-09 07:22] LABS: Alanine Aminotransferase 26 U/L (6-50); Albumin Level 3.6 g/dL (3.5-5.1); Alkaline Phosphatase 84 U/L (38-126); Anion Gap 12 mmol/L (8-16); Aspartate Amino Transferase 59 U/L (17-59); Bilirubin,Total 0.9 mg/dL (0.2-1.3); Blood Urea Nitrogen 64 mg/dL (9-20); Calcium 7.1 mg/dL (8.4-10.2); Carbon Dioxide 25 mmol/L (22-30); Chloride 80 mmol/L (98-107); Estimated CRCL calculation 31 ml/min; Estimated Glomerular Filt Rate 34; Glucose 152 mg/dL (65-110); Potassium 2.8 mmol/L (3.4-5.0); Sodium 117 mmol/L (137-145)
[2022-07-09] MEDS: ALBUTEROL SULFATE NEB 2.5 MG/3 ML INH INHALATION ×4 (07:22→20:10)
[2022-07-09] MEDS: IPRATROPIUM BR 0.02% INH SOLN 0.5 MG/2.5 ML VIAL INHALATION ×3 (07:22→20:10)
[2022-07-09 07:25] LABS: White Blood Count 0.3 K/mm3 (4.5-10.0)
[2022-07-09 07:33] LABS: Band Neutrophils Percent 5 % (0-6); Lymphocytes Absolute Manual 0.07 K/mm3 (1.1-4.5); Monocytes Absolute Manual 0.03 K/mm3 (0.1-0.90); Monocytes Percent Manual 10 % (3-9); Neutrophils Absolute Manual 0.19 K/mm3 (1.3-6.7); Neutrophils Percent Manual 60 % (46-73); Total Cells Counted 100
[2022-07-09 07:34] LABS: Anisocytosis 1+ (NORMAL); Macrocytosis 1+ (NORMAL); Ovalocytes 1+ (NORMAL); Platelet Estimate Adequate (Adequate); Schistocytes None Seen (NORMAL)
[2022-07-09 07:43] LABS: Cholesterol 91 mg/dL (0-200); HDL Direct 15 mg/dL; Triglycerides 82 mg/dL (<150)
[2022-07-09 07:51] LABS: Hemoglobin A1C 5.7 % (<5.7)
[2022-07-09] MEDS: methylPREDNISolone SOD SUCC 40 MG VIAL IV PUSH (08:19)
[2022-07-09] MEDS: SODIUM CHLORIDE 0.9% IV 1,000 ML 75 ML IV CONT (08:19)
[2022-07-09] MEDS: POTASSIUM CHLORIDE INJ 40 MEQ in SODIUM CHLORIDE 0.9% IV 500 ML 130 MEQ IVPB (08:19)
[2022-07-09] MEDS: guaiFENesin 12 HR 600 MG TABCR PO (08:19)
[2022-07-09 08:30] LABS: Iron < 10 ug/dL (49-181)
[2022-07-09 08:37] LABS: Transferrin 197 mg/dL (206-381)
[2022-07-09 08:41] LABS: Percent Iron Saturation 3 % (20-50)
--- NOTE | 2022-07-09 09:34 | PM.CNCAR ---
Assessment and Plan Assessment and plan (1) Elevated troponin: Code(s): R77.8 - Other specified abnormalities of plasma proteins Status: Acute Assessment and Plan: Type 2 infarction not secondary to acute coronary syndrome and/or plaque rupture in setting of acute hypoxic respiratory failure the influenza, pneumonia, acute kidney injury, underlying CAD but without clear anginal symptoms. Continue supportive care for history of CAD as tolerated. 2D echocardiogram to assess LV size/function, wall motion abnormalities, valve pathology, pulmonary pressures. (2) Acute respiratory failure: Code(s): J96.00 - Acute respiratory failure, unspecified whether with hypoxia or hypercapnia Status: Acute Assessment and Plan: Secondary to pneumonia in setting of influenza A. Concerning mediastinal and bilateral hilar lymphadenopathy possible lymphoma metastatic disease per Radiology particular setting of leukopenia. Defer to primary service, consider Oncology consultation. Patient is very ill with multiorgan system involvement with guarded prognosis overall. Patient remains at high risk for further respiratory collapse and potential need for mechanical ventilatory support. (3) Pneumonia: Code(s): J18.9 - Pneumonia, unspecified organism Status: Acute Assessment and Plan: As above. Continue supportive care, IV antibiotics, O2 supplementation, bronchodilator therapy. (4) CAD (coronary artery disease): Qualifiers: Coronary Disease-Associated Artery/Lesion type: [place] artery [place] vs. transplanted heart: [place] heart Associated angina: without angina Qualified Code(s): I25.10 - Atherosclerotic heart disease of [place] coronary artery without angina pectoris Code(s): I25.10 - Atherosclerotic heart disease of [place] coronary artery without angina pectoris Status: Acute Assessment and Plan: No anginal symptoms. Continue supportive care. Follow H&H but consider adding ASA 81 mg daily as tolerated. Statin therapy as tolerated. (5) Chronic diastolic (congestive) heart failure: Code(s): I50.32 - Chronic diastolic (congestive) heart failure Status: Acute Assessment and Plan: As above, appropriate T significantly elevated, however, decompensated heart failure is not his primary reason respiratory failure. Patient has pneumonia sitting influenza A. Patient remains at significant risk given his history of decompensated heart failure given acute renal failure, severe hyponatremia and hypokalemia unable to safely diurese at this time. 2D echocardiogram pending. Recommendation to follow after review. Monitor input and output, daily weight. (6) Sepsis: Code(s): A41.9 - Sepsis, unspecified organism Status: Acute Assessment and Plan: Per primary service. (7) Acute renal failure: Code(s): N17.9 - Acute kidney failure, unspecified Status: Acute Assessment and Plan: Monitor closely. Minimize nephrotoxic agents. Avoid diuretic therapy at this time patient has lost a significant amount of weight and is clinically intravascular volume depleted with lower extremity edema likely combination of relative malnutrition and 3rd spacing. (8) Coagulopathy: Code(s): D68.9 - Coagulation defect, unspecified Status: Acute Assessment and Plan: INR 2.0. Monitor for bleeding. DVT prophylaxis. Avoid full systemic anticoagulation given the circumstances. (9) Hyponatremia: Code(s): E87.1 - Hypo-osmolality and hyponatremia Status: Acute Assessment and Plan: Severe hyponatremia. Management per primary service. (10) Paroxysmal atrial fibrillation: Code(s): I48.0 - Paroxysmal atrial fibrillation Status: Acute Assessment and Plan: Not on systemic anticoagulation due to history of GI bleed felt not to be an anticoagulation candidate. He has a history of left atrial appendage occlusion
[2022-07-09 09:39] LABS: Folic Acid 10.7 ng/mL (2.76->20); Vitamin B12 > 1000.0 pg/mL (239-931)
[2022-07-09 09:45] LABS: Lactic Acid Reflex 3.2 mmol/L (0.7-2.0)
[2022-07-09] MEDS: OSELTAMIVIR PHOSPHATE ORAL SUSP 30 MG/5 ML SYRINGE PO ×2 (10:04→21:22)
[2022-07-09 10:17] LABS: Appearance Urine Clear (Clear); Bilirubin Urine Negative (Negative); Blood Urine 1+ (Negative); Color Urine Yellow (Yellow); Glucose Urine UA Negative (Negative); Ketones Urine Negative (Negative); Leukocyte Esterase Ur Negative LEU/UL (Negative); Nitrate Urine Negative (Negative); Protein Urine Trace mg/dL (Negative); Specific Grav Ur <= 1.005 (1.001-1.035); Urobilinogen Urine 0.2 mg/dL (<2.0)
[2022-07-09 10:21] LABS: Add Urine Microscopic? YES; Bacteria Urine Trace /hpf; Mucus Urine Rare /lpf; RBC Urine 0-2 /hpf (0-2); Squamous Epithelial Cell Urine Rare /hpf (Few)
[2022-07-09 11:27] LABS: LDL Cholesterol Direct < 30 mg/dL
--- NOTE | 2022-07-09 11:33 | PCSTNOTE ---
Please refer to the Modified Barium Swallow Evaluation in the EMR.
[2022-07-09 11:35] LABS: Sodium 119 mmol/L (137-145)
[2022-07-09 11:36] LABS: Urea Random Urine 342 MG/DL
[2022-07-09 12:18] LABS: Glucose Point of Care 105 mg/dl (65-105)
--- NOTE | 2022-07-09 12:18 | PM.CNNEP ---
Assessment and Plan Assessment and plan (1) BECKY (acute kidney injury): Code(s): N17.9 - Acute kidney failure, unspecified Status: Acute Assessment and Plan: normal baseline creatinine etiology not clear volume depletion? ATN from infection? relative hypotension? urinary retention?? evaluation to date: urine electrolytes non-prerenal (but done when on diuretics) however, FeUrea seems to support prerenal azotemia renal ultrasound normal surprisingly, received contrast (with CTA of chest) even with admission creatinine of 2.0mg/dl(!) on trial of IVFs (as respiratory status tolerates) follow repeat labs and UOP (2) Hyponatremia: Code(s): E87.1 - Hypo-osmolality and hyponatremia Status: Acute Assessment and Plan: normal sodium at baseline admitted with sodium of 124 dropped to 117 and not up to 119 multiple risk factors: influenza/pneumonia BECKY/ARF diuretics known COPD possible malignancy? (see CT of chest results) check TSH, cortisol (but already on steroids), serum/urine osmolality, SPEP/UPEP and kappa/lamda ratio start fluid restriction consider changing all IV meds/IVPB to use normal saline as carrier fluid on IVFs currently if develops issues with fluid overload, may need to d/c IVFs and consider salt tabs if underlying malignancy an issues, may need to consider demeclocycline follow serial sodium levels (3) Acute respiratory failure: Code(s): J96.00 - Acute respiratory failure, unspecified whether with hypoxia or hypercapnia Status: Acute Assessment and Plan: respiratory status seems tenuous due influenza and pneumonia Pulmonary consulted continue current therapy (4) Influenza: Code(s): J11.1 - Influenza due to unidentified influenza virus with other respiratory manifestations Status: Acute Assessment and Plan: as noted by admission testing on Tamiflu (5) Pneumonia: Code(s): J18.9 - Pneumonia, unspecified organism Status: Acute Assessment and Plan: concern is for aspiration coupled with viral +/- bacterial etiology on broad spectrum antibiotics on Tamiflu oxygen support follow respiratory status closely (6) Chronic diastolic (congestive) heart failure: Code(s): I50.32 - Chronic diastolic (congestive) heart failure Status: Chronic Assessment and Plan: Cardiology following check Echo follow volume status carefully given respiratory issues and BECKY (7) Anemia: Code(s): D64.9 - Anemia, unspecified Status: Acute Assessment and Plan: presumably due to BECKY/ARF along with acute illness follow trend of H/H (8) Diabetes mellitus: Qualifiers: Diabetes mellitus complication status: without complication Diabetes mellitus termite control representative insulin use: without termite control representative use Diabetes mellitus type: type 2 Qualified Code(s): E11.9 - Type 2 diabetes mellitus without complications Code(s): E11.9 - Type 2 diabetes mellitus without complications Status: Chronic Assessment and Plan: follow accuchecks glycemic control Will continue to follow. History of Present Illness Reason for Consult Consult date: 07/09/22 Reason for consult: acute renal failure and hyponatremia Chief Complaint Chief complaint: PNA Neutropenic History of Present Illness Narrative: The patient is a 62-year-old male with an extensive past medical history as outlined below who presented to [facility] Emergency room with a one week history of fatigue, shortness of breath, and generalized weakness. The patient reports that he was in his usual state of health up until about two weeks ago when suddenly he noted that his appetite had decreased significantly. About a week later, he started having muscle aches and generalized weakness In association with chest congestion and a sore throat. then, about three days pr
--- NOTE | 2022-07-09 12:18 | P.CONNP_ITS ---
Assessment and Plan Assessment and plan (1) BECKY (acute kidney injury): Code(s): N17.9 - Acute kidney failure, unspecified Status: Acute Assessment and Plan: * normal baseline creatinine * etiology not clear * volume depletion? * ATN from infection? * relative hypotension? * urinary retention?? * evaluation to date: * urine electrolytes non-prerenal (but done when on diuretics) * however, FeUrea seems to support prerenal azotemia * renal ultrasound normal * surprisingly, received contrast (with CTA of chest) even with admission creatinine of 2.0mg/dl(!) * on trial of IVFs (as respiratory status tolerates) * follow repeat labs and UOP (2) Hyponatremia: Code(s): E87.1 - Hypo-osmolality and hyponatremia Status: Acute Assessment and Plan: * normal sodium at baseline * admitted with sodium of 124 * dropped to 117 and not up to 119 * multiple risk factors: * influenza/pneumonia * BECKY/ARF * diuretics * known COPD * possible malignancy? (see CT of chest results) * check TSH, cortisol (but already on steroids), serum/urine osmolality, SPEP/UPEP and kappa/lamda ratio * start fluid restriction * consider changing all IV meds/IVPB to use normal saline as carrier fluid * on IVFs currently * if develops issues with fluid overload, may need to d/c IVFs and consider salt tabs * if underlying malignancy an issues, may need to consider demeclocycline * follow serial sodium levels (3) Acute respiratory failure: Code(s): J96.00 - Acute respiratory failure, unspecified whether with hypoxia or hypercapnia Status: Acute Assessment and Plan: * respiratory status seems tenuous * due influenza and pneumonia * Pulmonary consulted * continue current therapy (4) Influenza: Code(s): J11.1 - Influenza due to unidentified influenza virus with other respiratory manifestations Status: Acute Assessment and Plan: * as noted by admission testing * on Tamiflu (5) Pneumonia: Code(s): J18.9 - Pneumonia, unspecified organism Status: Acute Assessment and Plan: * concern is for aspiration coupled with viral +/- bacterial etiology * on broad spectrum antibiotics * on Tamiflu * oxygen support * follow respiratory status closely (6) Chronic diastolic (congestive) heart failure: Code(s): I50.32 - Chronic diastolic (congestive) heart failure Status: Chronic Assessment and Plan: * Cardiology following * check Echo * follow volume status carefully given respiratory issues and BECKY (7) Anemia: Code(s): D64.9 - Anemia, unspecified Status: Acute Assessment and Plan: * presumably due to BECKY/ARF along with acute illness * follow trend of H/H (8) Diabetes mellitus: Qualifiers: Diabetes mellitus complication status: without complication Diabetes mellitus shelter insulin use: without shelter use Diabetes mellitus type: type 2 Qualified Code(s): E11.9 - Type 2 diabetes mellitus without complications Code(s): E11.9 - Type 2 diabetes mellitus without complications Status: Chronic Assessment and Plan: * follow accuchecks * glycemic control Will continue to follow. History of Present Illness Reason for Consult Consult date: 07/09/22 Reason for consult: acute renal failure and hyponatremia Chief Complaint Chief complaint: PNA Neutropenic History of Present Illness Narrative:
[2022-07-09 12:32] LABS: Reflex Lactic Acid Yes or No Add Lactic
[2022-07-09 13:32] LABS: Hematocrit 29.9 % (42.0-52.0); Hemoglobin 9.5 g/dL (14.0-18.0); Immature Platelet Fraction Pct 6.1 % (0.9-11.2); Lymphocytes Absolute Auto 0.07 K/mm3 (0.9-3.2); Mean Corpuscular HGB Conc 31.8 g/dl (32-36); Mean Corpuscular Hemoglobin 21.7 pg (26-34); Mean Corpuscular Volume 68.3 fl (80-100); Monocytes Percent Auto 5.7 % (2.6-8.5); Neutrophils Absolute Auto 0.3 K/mm3 (1.3-6.7); Neutrophils Percent Auto 74.3 % (45.5-73.1); Platelet Count Result 171 k/mm3 (150-375); Red Blood Count 4.38 M/mm3 (4.6-6.20); Red Cell Distribution Width 21.8 % (11.5-14.5)
[2022-07-09 13:39] LABS: Lactic Acid 2.4 mmol/L (0.7-2.0)
[2022-07-09 13:40] LABS: Potassium 3.7 mmol/L (3.4-5.0)
[2022-07-09 13:43] LABS: Alanine Aminotransferase 27 U/L (6-50); Albumin Level 3.6 g/dL (3.5-5.1); Alkaline Phosphatase 87 U/L (38-126); Anion Gap 11 mmol/L (8-16); Aspartate Amino Transferase 60 U/L (17-59); Bilirubin,Total 1.1 mg/dL (0.2-1.3); Blood Urea Nitrogen 64 mg/dL (9-20); Calcium 7.3 mg/dL (8.4-10.2); Carbon Dioxide 26 mmol/L (22-30); Chloride 82 mmol/L (98-107); Glucose 86 mg/dL (65-110); Magnesium 2.5 mg/dL (1.6-2.3); Sodium 119 mmol/L (137-145)
[2022-07-09 13:48] LABS: White Blood Count 0.4 K/mm3 (4.5-10.0)
[2022-07-09 13:49] LABS: Anisocytosis 1+ (NORMAL); Estimated CRCL calculation 31 ml/min; Estimated Glomerular Filt Rate 34; Hypochromasia 1+ (NORMAL); Ovalocytes 1+ (NORMAL); Platelet Estimate Adequate (Adequate); Schistocytes None Seen (NORMAL)
--- NOTE | 2022-07-09 13:50 | PM.CNPUL ---
Assessment and Plan Assessment and plan (1) Acute respiratory failure: Code(s): J96.00 - Acute respiratory failure, unspecified whether with hypoxia or hypercapnia Status: Acute Assessment and Plan: This 62-year-old man with history of coronary artery disease, status post pacemaker implantation, chronic AFib diabetes mellitus, previous pneumococcal pneumonia 3 years ago, presented with acute respiratory illness characterized by diffuse myalgias followed by fever chills and shortness of breath. Patient has been tested positive for influenza. Chest CT showed diffuse consolidations on a background of mild interstitial lung disease with a probable early UIP pattern. In addition there was evidence of enlarged lymph nodes in the mediastinum. Patient has acute renal insufficiency, hyponatremia, severe leukopenia but no thrombocytopenia or decrease in his chronically low Hb. The patient's clinical history in conjunction with diagnostic findings suggest influenza pneumonia with possible superimposed bacterial coinfection given the large bilateral consolidations. Patient has had sputum production of clear color. although less likely, alternative diagnosis includes viral respiratory illness with exacerbation of underlying chronic interstitial lung disease. mediastinal lymphadenopathy of unclear significance at this point. Patient will need follow-up with repeat CT in the near future. Plan: Await sputum culture. Continue with broad-spectrum antibiotics as prescribed. Monitor respiratory status as patient may need to be transferred to the intensive care unit. Continue with DVT prophylaxis as ordered. (2) Leukopenia: Code(s): D72.819 - Decreased white blood cell count, unspecified Status: Acute (3) Influenza: Code(s): J11.1 - Influenza due to unidentified influenza virus with other respiratory manifestations Status: Acute (4) Pneumonia: Code(s): J18.9 - Pneumonia, unspecified organism Status: Acute (5) Acute renal failure: Code(s): N17.9 - Acute kidney failure, unspecified Status: Acute (6) Hyponatremia: Code(s): E87.1 - Hypo-osmolality and hyponatremia Status: Acute (7) Chronic diastolic (congestive) heart failure: Code(s): I50.32 - Chronic diastolic (congestive) heart failure Status: Acute History of Present Illness History of Present Illness Consult date: 07/09/22 Chief complaint: PNA Neutropenic Narrative: This 62-year-old man presented with one-week history of myalgias fever chills and shortness of breath. The patient was in his usual state of health until approximately 2 weeks ago when he started having decreased appetite. Approximately 1 week ago he started having myalgias and weakness. Three days later, he spiked a temperature to 101?, also associated with chills. The patient took Motrin with defervescence. He progressively started to have shortness of breath but no wheezing chest pain hemoptysis or lower extremity edema. Over the last couple of days, he has had sputum production of clear color. The patient was evaluated with CT PA that showed bilateral patchy consolidations mostly left lower lobe but also in a right lower lobe superimposed on interstitial lung disease. The patient was found to have hypoxemia and is currently receiving supplemental oxygen at 7 liters/minute. He continues to have shortness of breath and sputum production of clear color. He feels very weak. Upon questioning, he admitted having lost approximately 13 lb over the last 2 weeks. He continued to work until a week ago. Past medical history significant for coronary artery disease status post coronary artery bypass grafting in 2012, status post pacemaker implantation, chronic atrial fibrillation, chronic microcytic anemia. Also a history of pneumococcal pneumonia with hospitalization approximately 3 years ago. Patient also stated that approximately 3 years ago he w
[2022-07-09 16:32] LABS: Alveolar/Arterial O2 Gradient 193.6 mmHg; Carboxyhemoglobin 0.5 % THb (0-2.0); Fractional Inspired Oxygen 44 %; HCO3 ABG 24.6 mEq/l (22.0-26.0); Methemoglobin ABG 0.2 %THb (0-1.5); Oxygen Content ABG 13.3 %vol (16.0-22.0); Oxygen Saturation ABG 92.9 % (95.0-100.0); Oxyhemoglobin 90.6 % THb (90.0-100.0); PCO2 ABG 45.2 mmHg (35.0-45.0); PO2 ABG 68.6 mmHg (80.0-100.0); PO2 FiO2 Ratio Arterial Blood 1.56 %; Reduced Hemoglobin 8.7 %THb (0-5.0); Total Hemoglobin 10.4 g/dL (12.0-18.0); pH ABG 7.354 (7.350-7.450)
[2022-07-09 16:33] LABS: Device NASAL CANNULA; Modified Allen's Test Pass; Site Drawn RIGHT RADIAL
[2022-07-09 16:56] LABS: Glucose Point of Care 165 mg/dl (65-105)
[2022-07-09 17:17] LABS: Anion Gap 15 mmol/L (8-16); Blood Urea Nitrogen 63 mg/dL (9-20); Calcium 7.3 mg/dL (8.4-10.2); Carbon Dioxide 24 mmol/L (22-30); Chloride 83 mmol/L (98-107); Glucose 148 mg/dL (65-110); Potassium 3.7 mmol/L (3.4-5.0); Sodium 122 mmol/L (137-145)
[2022-07-09 17:18] LABS: Estimated CRCL calculation 27 ml/min; Estimated Glomerular Filt Rate 29
[2022-07-09] MEDS: SODIUM CHLORIDE 500 MG TABLET PO (18:12)
[2022-07-09 20:53] LABS: Glucose Point of Care 111 mg/dl (65-105)
[2022-07-09] MEDS: ONDANSETRON INJ 4 MG/2 ML VIAL IV PUSH (21:18)
[2022-07-09 21:35] LABS: Anion Gap 13 mmol/L (8-16); Blood Urea Nitrogen 68 mg/dL (9-20); Calcium 7.2 mg/dL (8.4-10.2); Carbon Dioxide 26 mmol/L (22-30); Chloride 84 mmol/L (98-107); Glucose 98 mg/dL (65-110); Sodium 123 mmol/L (137-145)
[2022-07-09 21:44] LABS: Estimated CRCL calculation 32 ml/min; Estimated Glomerular Filt Rate 36
[2022-07-10] VITALS (58 sets, daily range): BP systolic 48–146; BP diastolic 19–98; PULSE 80–98; RESP 14–27; TEMP 35–36.8; O2SAT 90–100; BMI 19.5
[2022-07-10] MEDS: IPRATROPIUM BR 0.02% INH SOLN 0.5 MG/2.5 ML VIAL INHALATION ×3 (01:04→21:00)
[2022-07-10] MEDS: ALBUTEROL SULFATE NEB 2.5 MG/3 ML INH INHALATION ×5 (01:04→23:36)
--- NOTE | 2022-07-10 02:13 | ECHO_ITS ---
Patient Info Name: Dmitri Bergeron Age: 62 years : 1960 Gender: Male Ht: 71 in Wt: 159 lbs BSA: 1.90 m2 HR: 81 bpm BP: 118 / 63 mmHg Heart Rhythm: Paced Technical Quality: Fair Exam Date: 07/10/2022 10:33 AM Exam Location: [facility] Patient Status: Inpatient Admit Date: 07/09/2022 Staff Ordering Physician: Dalton Aaron M.A., MD Campus Police Officer: Marimar Aquino RDCS Attending Provider: Dalton Aaron M.A., MD Referring Physician: Manolo GUILLERMO; Exam Type: CA echo doppler color flow Study Info Indications - chf Three dimensional echocardiographic imaging is performed during the transthoracic echocardiogram. Complete two-dimensional, color flow and Doppler transthoracic echocardiogram is performed. Summary 1. Complete two-dimensional, color flow and Doppler transthoracic echocardiogram is performed. 2. Left ventricular chamber dimension is mildly enlarged. 3. Left ventricular systolic function is normal, estimated at 55%. Hypokinesis of the apical inferior and apical lateral jaime. 4. There is no increased left ventricular wall thickness. 5. Left ventricular septal wall motion is abnormal with septal motion related to pacing. 6. Right atrial chamber dimension is severely enlarged. 7. Left atrial chamber dimension is severely enlarged. 8. There is moderate tricuspid valve regurgitation. 9. Moderate pulmonary hypertension, estimated pulmonary arterial systolic pressure is 56 mmHg. 10. There is mild to moderate mitral valve regurgitation. Left Ventricle Left ventricular chamber dimension is mildly enlarged. Left ventricular systolic function is normal, estimated at 55%. Hypokinesis of the apical inferior and apical lateral jaime. There is no increased left ventricular wall thickness. Left ventricular septal wall motion is abnormal with septal motion related to pacing. The left ventricular diastolic function is indeterminate. Right Ventricle Right ventricular chamber dimension is normal. Right ventricular systolic function is reduced. Linear artifact in right ventricle suggestive of catheter(s), pacemaker lead(s), or ICD lead(s). Left Atria Left atrial chamber dimension is severely enlarged. Right Atria Right atrial chamber dimension is severely enlarged. Linear artifact in the right atrium suggestive of catheter(s), pacemaker lead(s), or ICD lead(s). Aortic Valve The aortic valve is trileaflet. There is mild aortic valve sclerosis. There is no aortic valve stenosis. There is no aortic valve regurgitation. Pulmonic Valve The pulmonic valve is not well visualized. There is trace pulmonic regurgitation. Mitral Valve The mitral valve has thickened leaflets. There is mild to moderate mitral valve regurgitation. The mitral valve annulus is mildly calcified. Tricuspid Valve The tricuspid valve leaflets are normal. There is moderate tricuspid valve regurgitation. Moderate pulmonary hypertension, estimated pulmonary arterial systolic pressure is 56 mmHg. Pericardium/Pleural The pericardium appears normal. There is trivial pericardial effusion. Inferior Vena Cava Dilated inferior vena cava with no collapse upon inspiration consistent with significantly elevated right atrial pressure, 15 mmHg. Aorta The aortic root size at the sinus of Valsalva is normal. There is mild aortic atherosclerosis. Left Ventricular Outflow Tract Na
[2022-07-10] MEDS: HEPARIN SODIUM 5,000 UNITS/ML VIAL 5000 UNITS SUB-Q ×2 (05:33→13:37)
[2022-07-10 05:39] LABS: Hematocrit 30.8 % (42.0-52.0); Hemoglobin 9.3 g/dL (14.0-18.0); Immature Platelet Fraction Pct 6.8 % (0.9-11.2); Mean Corpuscular HGB Conc 30.2 g/dl (32-36); Mean Corpuscular Hemoglobin 20.5 pg (26-34); Mean Platelet Volume 10.4 fl (7.4-10.4); Platelet Count Result 164 k/mm3 (150-375); Red Blood Count 4.53 M/mm3 (4.6-6.20); Red Cell Distribution Width 21.9 % (11.5-14.5)
[2022-07-10 06:03] LABS: White Blood Count 0.5 K/mm3 (4.5-10.0)
[2022-07-10 06:17] LABS: Anisocytosis 2+ (NORMAL); Hypochromasia 3+ (NORMAL); Platelet Estimate Adequate (Adequate)
[2022-07-10 06:18] LABS: Smudge Cells PRESENT; Target Cells 1+ (NORMAL)
[2022-07-10 06:21] LABS: Alanine Aminotransferase 40 U/L (6-50); Albumin Level 3.6 g/dL (3.5-5.1); Alkaline Phosphatase 93 U/L (38-126); Anion Gap 13 mmol/L (8-16); Aspartate Amino Transferase 91 U/L (17-59); Bilirubin,Total 1.8 mg/dL (0.2-1.3); Blood Urea Nitrogen 74 mg/dL (9-20); Calcium 7.2 mg/dL (8.4-10.2); Carbon Dioxide 30 mmol/L (22-30); Chloride 81 mmol/L (98-107); Estimated CRCL calculation 28 ml/min; Estimated Glomerular Filt Rate 29; Glucose 89 mg/dL (65-110); Potassium 4.2 mmol/L (3.4-5.0); Sodium 124 mmol/L (137-145)
[2022-07-10 06:33] LABS: Band Neutrophils Percent 24 % (0-6); Lymphocytes Absolute Manual 0.08 K/mm3 (1.1-4.5); Metamyelocytes Percent 8 %; Monocytes Absolute Manual 0.16 K/mm3 (0.1-0.90); Monocytes Percent Manual 32 % (3-9); Neutrophils Absolute Manual 0.22 K/mm3 (1.3-6.7); Neutrophils Percent Manual 20 % (46-73); Total Cells Counted 25
[2022-07-10 06:35] LABS: Schistocytes 1+ (NORMAL)
[2022-07-10 08:10] LABS: Glucose Point of Care 77 mg/dl (65-105)
[2022-07-10] MEDS: OSELTAMIVIR PHOSPHATE ORAL SUSP 30 MG/5 ML SYRINGE PO (09:05)
[2022-07-10] MEDS: guaiFENesin 12 HR 600 MG TABCR PO (09:05)
--- NOTE | 2022-07-10 09:15 | PM.IMPN ---
Progress Note: A&P Assessment and Plan (1) Sepsis: Code(s): A41.9 - Sepsis, unspecified organism Status: Acute Assessment and Plan: Patient meets SIRS criteria with tachypnea, hypotension, source of infection, leukocytopenia Lactic acid 2.4 Source of infection: Atypical aspiration pneumonia Blood cultures pending Sputum culture show gram positive cocci in pairs Continue Primaxin, vancomycin, and azithromycin MRSA swab pending Continue IV fluids KVO Qsofa score is 2 (2) Acute respiratory failure: Code(s): J96.00 - Acute respiratory failure, unspecified whether with hypoxia or hypercapnia Status: Acute Assessment and Plan: Tripod position, unable to complete sentences, increasing oxygen demand, currently on bipap ABG showed hypercapnia respiratory failure Saturation in ED 86% Secondary to aspiration PNA and COPD Supplemental oxygen to maintain saturations >90% Worsening breathing (3) Pneumonia: Code(s): J18.9 - Pneumonia, unspecified organism Status: Acute Assessment and Plan: CTA: No PE, consolidation in the lower lobes, left > right, possible aspiration, debris found in the esophagus ST for swallow eval Continue cefepime to Primaxin and azithromycin WBC 0.5 Neb treatments Supplemental Oxygen as indicated NPO diet Sputum culture pending Blood cultures pending (4) Chronic diastolic (congestive) heart failure: Code(s): I50.32 - Chronic diastolic (congestive) heart failure Status: Chronic Assessment and Plan: Acute and of chronic most likely diastolic CHF exacerbation associated with elevated troponin Serial troponin flat most likely related to CHF exacerbation Cardiology consult furosemide 20mg IV BID, restarted per nephrology BNP 23673 Sodium noted to be 118 Daily weights Trend urine output Strict I&Os Trend renal function with BECKY findings (5) Mixed hyperlipidemia: Code(s): E78.2 - Mixed hyperlipidemia Status: Acute Assessment and Plan: CK is 64 AST/ALT stable No home statin Lipid panel Cholesterol 91, HDL 15, LDL , Triglycerides 82 (6) Essential (primary) hypertension: Code(s): I10 - Essential (primary) hypertension Status: Acute Assessment and Plan: Appears hypotensive, currently 103/40 Not on any antihypertensives at home Trend BP adjust therapy as indicated (7) Paroxysmal atrial fibrillation: Code(s): I48.0 - Paroxysmal atrial fibrillation Status: Acute Assessment and Plan: EKG does shows paced rhythm Underlying A.Fib Cardiology is consulted Consider anticoagulation Trend Heart rate (8) Diabetes mellitus: Qualifiers: Diabetes mellitus complication status: without complication Diabetes mellitus group home insulin use: without long term care pharmacist use Diabetes mellitus type: type 2 Qualified Code(s): E11.9 - Type 2 diabetes mellitus without complications Code(s): E11.9 - Type 2 diabetes mellitus without complications Status: Chronic Assessment and Plan: Current glucose is 97 Insulin Lispro sliding scale, Accu-checks qAc and HS Hold oral metformin for now HgbA1c 5.7 Insulin sliding scale Trend glucose Adjust therapy as indicated (9) CAD (coronary artery disease): Qualifiers: Associated angina: without angina Coronary Disease-Associated Artery/Lesion type: [place] artery [place] vs. transplanted heart: [place] heart Qualified Code(s): I25.10 - Atherosclerotic heart disease of [place] coronary artery without angina pectoris Code(s): I25.10 - Atherosclerotic heart disease of [place] coronary artery without angina pectoris Status: Acute Assessment and Plan: CABG x 3 in the past Start low dose aspirin Telemonitor Cardiology on board
--- NOTE | 2022-07-10 09:15 | P.PNIM_ITS ---
Progress Note: A&P Assessment and Plan (1) Sepsis: Code(s): A41.9 - Sepsis, unspecified organism Status: Acute Assessment and Plan: * Patient meets SIRS criteria with tachypnea, hypotension, source of infection, leukocytopenia * Lactic acid 2.4 * Source of infection: Atypical aspiration pneumonia * Blood cultures pending * Sputum culture show gram positive cocci in pairs * Continue Primaxin, vancomycin, and azithromycin * MRSA swab pending * Continue IV fluids KVO * Qsofa score is 2 (2) Acute respiratory failure: Code(s): J96.00 - Acute respiratory failure, unspecified whether with hypoxia or hypercapnia Status: Acute Assessment and Plan: * Tripod position, unable to complete sentences, increasing oxygen demand, currently on bipap * ABG showed hypercapnia respiratory failure * Saturation in ED 86% * Secondary to aspiration PNA and COPD * Supplemental oxygen to maintain saturations >90% * Worsening breathing (3) Pneumonia: Code(s): J18.9 - Pneumonia, unspecified organism Status: Acute Assessment and Plan: * CTA: No PE, consolidation in the lower lobes, left > right, possible aspiration, debris found in the esophagus * ST for swallow eval * Continue cefepime to Primaxin and azithromycin * WBC 0.5 * Neb treatments * Supplemental Oxygen as indicated * NPO diet * Sputum culture pending * Blood cultures pending (4) Chronic diastolic (congestive) heart failure: Code(s): I50.32 - Chronic diastolic (congestive) heart failure Status: Chronic Assessment and Plan: * Acute and of chronic most likely diastolic CHF exacerbation associated with elevated troponin * Serial troponin flat most likely related to CHF exacerbation * Cardiology consult * furosemide 20mg IV BID, restarted per nephrology * BNP 18305 * Sodium noted to be 118 * Daily weights * Trend urine output * Strict I&Os * Trend renal function with BECKY findings (5) Mixed hyperlipidemia: Code(s): E78.2 - Mixed hyperlipidemia Status: Acute Assessment and Plan: * CK is 64 * AST/ALT stable * No home statin * Lipid panel Cholesterol 91, HDL 15, LDL , Triglycerides 82 (6) Essential (primary) hypertension: Code(s): I10 - Essential (primary) hypertension Status: Acute Assessment and Plan: * Appears hypotensive, currently 103/40 * Not on any antihypertensives at home * Trend BP * adjust therapy as indicated (7) Paroxysmal atrial fibrillation: Code(s): I48.0 - Paroxysmal atrial fibrillation Status: Acute Assessment and Plan: * EKG does shows paced rhythm * Underlying A.Fib * Cardiology is consulted * Consider anticoagulation * Trend Heart rate (8) Diabetes mellitus: Qualifiers: Diabetes mellitus complication status: without complication Diabetes mellitus chcf insulin use: without unit controller use Diabetes mellitus type: type 2 Qualified Code(s): E11.9 - Type 2 diabetes mellitus without complications Code(s): E11.9 - Type 2 diabetes mellitus without complications Status: Chronic Assessment and Plan: * Current glucose is 97 * Insulin Lispro sliding scale, * Accu-checks qAc and HS * Hold oral metformin for now * HgbA1
[2022-07-10 11:28] LABS: Alveolar/Arterial O2 Gradient 120.8 mmHg; Base Excess ABG 2.9 mEq/l (+/-2.0); Fractional Inspired Oxygen 44 %; Oxygen Content ABG 12.5 %vol (16.0-22.0); Oxyhemoglobin 95.2 % THb (90.0-100.0); PO2 ABG 100.6 mmHg (80.0-100.0); PO2 FiO2 Ratio Arterial Blood 2.29 %; Total Hemoglobin 9.2 g/dL (12.0-18.0)
[2022-07-10 11:29] LABS: Device NASAL CANNULA; Modified Allen's Test Pass; Site Drawn RIGHT RADIAL; pH ABG 7.214 (7.350-7.450)
[2022-07-10 12:10] LABS: Glucose Point of Care 105 mg/dl (65-105)
[2022-07-10 12:24] LABS: Anion Gap 13 mmol/L (8-16); Blood Urea Nitrogen 82 mg/dL (9-20); Calcium 6.5 mg/dL (8.4-10.2); Carbon Dioxide 24 mmol/L (22-30); Chloride 81 mmol/L (98-107); Glucose 97 mg/dL (65-110); Potassium 4.2 mmol/L (3.4-5.0); Sodium 118 mmol/L (137-145)
[2022-07-10 12:42] LABS: Estimated CRCL calculation 32 ml/min; Estimated Glomerular Filt Rate 34
[2022-07-10 13:12] LABS: Alveolar/Arterial O2 Gradient 283.8 mmHg; Base Excess ABG 3.9 mEq/l (+/-2.0); Fractional Inspired Oxygen 65 %; HCO3 ABG 31.7 mEq/l (22.0-26.0); Oxygen Content ABG 11.8 %vol (16.0-22.0); Oxygen Saturation ABG 96.8 % (95.0-100.0); Oxyhemoglobin 96.1 % THb (90.0-100.0); PO2 ABG 103.9 mmHg (80.0-100.0); Total Hemoglobin 8.6 g/dL (12.0-18.0)
[2022-07-10 13:13] LABS: PCO2 ABG 69.7 mmHg (35.0-45.0); pH ABG 7.276 (7.350-7.450)
[2022-07-10 13:14] LABS: Device BIPAP; Expiratory Pressure 5 cmH2O; Modified Allen's Test Pass; Site Drawn LEFT RADIAL
--- NOTE | 2022-07-10 13:26 | PM.PNPUL ---
Progress Note: A&P Assessment and Plan (1) Acute respiratory failure: Code(s): J96.00 - Acute respiratory failure, unspecified whether with hypoxia or hypercapnia Status: Acute Assessment and Plan: 07/09/2022 This 62-year-old man with history of coronary artery disease,? status post pacemaker implantation, chronic AFib diabetes mellitus, previous pneumococcal pneumonia 3 years ago, presented with acute respiratory illness characterized by diffuse myalgias followed by fever chills and shortness of breath.? Patient has been tested positive for influenza.? Chest CT showed diffuse consolidations on a background of mild interstitial lung disease with a probable? early UIP pattern.? In addition there was evidence of? enlarged lymph nodes in the mediastinum. Patient has acute renal insufficiency, ? hyponatremia, severe leukopenia but no thrombocytopenia or decrease in his chronically low Hb. ? The patient's? clinical history in conjunction with diagnostic findings suggest influenza pneumonia with possible superimposed bacterial coinfection given the large bilateral consolidations.? Patient has had sputum production of clear color.? although less likely,? alternative diagnosis includes viral respiratory illness with exacerbation of underlying chronic interstitial lung disease. mediastinal lymphadenopathy of unclear significance at this point.? Patient will need follow-up with repeat CT in the near future. Plan: Await sputum culture.? Continue with broad-spectrum antibiotics as prescribed. ? Monitor respiratory status as patient may need to be transferred to the intensive care unit.? Continue with DVT prophylaxis as ordered. 07/10/2022 Patient is more lethargic today. He does follow simple commands. He has centrally is nonverbal. Blood gas on 6 L was 7.21/81/101. Patient was started on noninvasive ventilator with an AVAPS mode respiratory rate 20, tidal volume 450, EPAP 5, minimal inspiratory pressure 6, maximal inspiratory pressure 25 and 40% FiO2. Repeat blood gas 1 hour later was 7.28/70/104 with no change in his mental status. Patient remains neutrapenic with a WBC 0.5, Na is worse at 118. Chest x-ray demonstrates interval progression of his diffuse interstitial and alveolar infiltrates. Plan: Patient is immunocompromised with a low white blood cell count. he had a normal white blood cell count on 10/27/2020 which is the last value I have access to. He presented with a white blood cell count of 0.5. Is difficult to tell if this is a chronic issue or related acutely to his influenza a infection. I am concerned that his respiratory acidosis is not the sole cause of his altered mental status. I will increase his respiratory rate to 22 and his tidal volume on his noninvasive ventilator to 500 and repeat a blood gas in 1 hour. His worsening chest x-ray is concerning for influenza pneumonia with ARDS. Continue Tamiflu, vancomycin, imipenem and azithromycin for influenza infection and possible bacterial superinfection. The mill tender warm up has been informed about this patient. The patient may have UIP/IPF but at this time given his positive influenza infection and focal consolidations L > R lung, I would not treat this as a IPF exacerbation with systemic steroids at this point. Discussed with Baron Mayo and Dr. Lawson. Will follow with you. Subjective Date/time seen: 07/10/22 13:26 Interval history: 07/09/2022 New Consult date: 07/09/22 Chief complaint: PNA Neutropenic Narrative: ? This 62-year-old man presented with one-week history of myalgias fever chills and shortness of breath.? The patient was in his usual state of health until approximately 2 weeks ago when he started having decreased appetite.? Approximately 1 week ago he started having myalgias and weakness.? Three days later, he spiked a temperature to 101?, also associated with chills.? The patient took Motrin with defervescence.? He progressively started to have shortness
[2022-07-10] MEDS: SODIUM CHLORIDE 3% 240 ML 60 ML IV CONT (13:32)
[2022-07-10 14:42] LABS: Alveolar/Arterial O2 Gradient 253.1 mmHg; Base Excess ABG 3.7 mEq/l (+/-2.0); Device BIPAP; Expiratory Pressure 5 cmH2O; Fractional Inspired Oxygen 65 %; HCO3 ABG 29.4 mEq/l (22.0-26.0); Modified Allen's Test Pass; Oxygen Content ABG 11.5 %vol (16.0-22.0); Oxygen Saturation ABG 98.9 % (95.0-100.0); PCO2 ABG 50.7 mmHg (35.0-45.0); PO2 ABG 155.2 mmHg (80.0-100.0); PO2 FiO2 Ratio Arterial Blood 2.39 %; Site Drawn LEFT RADIAL; Total Hemoglobin 8.1 g/dL (12.0-18.0); pH ABG 7.381 (7.350-7.450)
--- NOTE | 2022-07-10 15:30 | WPDPROCEDUR ---
Procedures Intubation Intubation Date: 07/10/22 Intubation Time: 15:30 Consent: Performed emergently. Sedative: none Paralytic: other (none) Laryngoscope: Clif (3) ET tube size: 7.5 Tube secured depth (cm): 24 Tube secured location: teeth Tube placement confirmation: visualized tube passing through cords, equal breath sounds bilaterally, no breath sounds over epigastrium and confirmation by capnometry Patient tolerated procedure: well Intubation complications: none Additional comments: Patient was being bagged per respiratory therapy. Copious amounts of green-brown gastric contacts noted in the oropharynx which needed to be suctioned prior to intubation. No sedatives or paralytics were given/needed. The patient was intubated easily and atraumatically intubated with a 7.5 ET tube on first attempt using a MAC 3. Tube was visualized passing through the vocal cords. Immediately following intubation, the airway was suctioned on large amounts of gastric contents. Colorimetry change noted and lungs sounds were auscultated bilaterally anteriorly and at the flanks. Chest x-ray reviewed post procedure and ET tube will be advanced 2 cm. Vent management and settings per director external communications.
--- NOTE | 2022-07-10 15:50 | P.PNNP_ITS ---
Progress Note: A&P Assessment and Plan (1) BECKY (acute kidney injury): Code(s): N17.9 - Acute kidney failure, unspecified Status: Acute Assessment and Plan: * normal baseline creatinine * etiology not clear * volume depletion? * ATN from infection? He is on antibiotics. Blood cultures are done and pending. WBC is low at 0.5. * relative hypotension? Systolic blood pressure seems to be above 100. * urinary retention?? * evaluation to date: * FeUrea seems to support prerenal azotemia * renal ultrasound normal * CK is normal * UA is bland except for 1+ blood but no red cells. * He is still making some urine output. He had 1300cc yesterday. * His creatinine seems relatively stable, up and down around 2.0. (2) Hyponatremia: Code(s): E87.1 - Hypo-osmolality and hyponatremia Status: Acute Assessment and Plan: * normal sodium at baseline * admitted with sodium of 124 * dropped to 117 And with fluid restriction gradually came up to 124 this morning. * Then at noon his sodium was down to 118. * multiple risk factors: * influenza/pneumonia * BECKY/ARF * diuretics * known COPD * possible malignancy? (see CT of chest results) * TSH is normal. Cortisol is pending osmolality is pending chest x-ray shows diffuse bilateral airspace disease, unclear if fluid or pneumonia. The patient is emaciated. Could he have an occult cancer? * Enhance fluid restriction [id number]. He is not really drinking M much anyway. * consider changing all IV meds/IVPB to use normal saline as carrier fluid * Stop IV fluids. * Add salt tablets at a 1000 mg BID and twice a day furosemide to help clear free water. * repeat sodium level this afternoon. (3) Acute respiratory failure: Code(s): J96.00 - Acute respiratory failure, unspecified whether with hypoxia or hypercapnia Status: Acute Assessment and Plan: * respiratory status seems tenuous * due influenza and pneumonia * Pulmonary consulted * On BiPAP now. May need to moved to the ICU if he does not get better (4) Influenza: Code(s): J11.1 - Influenza due to unidentified influenza virus with other respiratory manifestations Status: Acute Assessment and Plan: * as noted by admission testing * on Tamiflu (5) Pneumonia: Code(s): J18.9 - Pneumonia, unspecified organism Status: Acute Assessment and Plan: * concern is for aspiration coupled with viral +/- bacterial etiology * on broad spectrum antibiotics * on Tamiflu * oxygen support * follow respiratory status closely (6) Chronic diastolic (congestive) heart failure: Code(s): I50.32 - Chronic diastolic (congestive) heart failure Status: Chronic Assessment and Plan: * Cardiology following * echo shows good LV ejection fraction, moderate pulmonary hypertension, moderate TR, moderate MR, severe biatrial enlargement. * follow volume status carefully given respiratory issues and BECKY (7) Anemia: Code(s): D64.9 - Anemia, unspecified Status: Acute Assessment and Plan: * presumably due to BECKY/ARF along with acute illness * Hemoglobin ranging fom 8.9-9. 5. Now 9.3 (8) Diabetes mellitus: Qualifiers: Diabetes mellitus type: type 2 Diabetes mellitus half-way insulin use: without intermediate card tender use Diabetes mellitus complication status: without complication Quali
--- NOTE | 2022-07-10 15:50 | PM.PNNEP ---
Progress Note: A&P Assessment and Plan (1) BECKY (acute kidney injury): Code(s): N17.9 - Acute kidney failure, unspecified Status: Acute Assessment and Plan: normal baseline creatinine etiology not clear volume depletion? ATN from infection? He is on antibiotics. Blood cultures are done and pending. WBC is low at 0.5. relative hypotension? Systolic blood pressure seems to be above 100. urinary retention?? evaluation to date: FeUrea seems to support prerenal azotemia renal ultrasound normal CK is normal UA is bland except for 1+ blood but no red cells. He is still making some urine output. He had 1300cc yesterday. His creatinine seems relatively stable, up and down around 2.0. (2) Hyponatremia: Code(s): E87.1 - Hypo-osmolality and hyponatremia Status: Acute Assessment and Plan: normal sodium at baseline admitted with sodium of 124 dropped to 117 And with fluid restriction gradually came up to 124 this morning. Then at noon his sodium was down to 118. multiple risk factors: influenza/pneumonia BECKY/ARF diuretics known COPD possible malignancy? (see CT of chest results) TSH is normal. Cortisol is pending osmolality is pending chest x-ray shows diffuse bilateral airspace disease, unclear if fluid or pneumonia. The patient is emaciated. Could he have an occult cancer? Enhance fluid restriction [id number]. He is not really drinking M much anyway. consider changing all IV meds/IVPB to use normal saline as carrier fluid Stop IV fluids. Add salt tablets at a 1000 mg BID and twice a day furosemide to help clear free water. repeat sodium level this afternoon. (3) Acute respiratory failure: Code(s): J96.00 - Acute respiratory failure, unspecified whether with hypoxia or hypercapnia Status: Acute Assessment and Plan: respiratory status seems tenuous due influenza and pneumonia Pulmonary consulted On BiPAP now. May need to moved to the ICU if he does not get better (4) Influenza: Code(s): J11.1 - Influenza due to unidentified influenza virus with other respiratory manifestations Status: Acute Assessment and Plan: as noted by admission testing on Tamiflu (5) Pneumonia: Code(s): J18.9 - Pneumonia, unspecified organism Status: Acute Assessment and Plan: concern is for aspiration coupled with viral +/- bacterial etiology on broad spectrum antibiotics on Tamiflu oxygen support follow respiratory status closely (6) Chronic diastolic (congestive) heart failure: Code(s): I50.32 - Chronic diastolic (congestive) heart failure Status: Chronic Assessment and Plan: Cardiology following echo shows good LV ejection fraction, moderate pulmonary hypertension, moderate TR, moderate MR, severe biatrial enlargement. follow volume status carefully given respiratory issues and BECKY (7) Anemia: Code(s): D64.9 - Anemia, unspecified Status: Acute Assessment and Plan: presumably due to BECKY/ARF along with acute illness Hemoglobin ranging fom 8.9-9. 5. Now 9.3 (8) Diabetes mellitus: Qualifiers: Diabetes mellitus type: type 2 Diabetes mellitus oysterman insulin use: without senior living use Diabetes mellitus complication status: without complication Qualified Code(s): E11.9 - Type 2 diabetes mellitus without complications Code(s): E11.9 - Type 2 diabetes mellitus without complications Status: Chronic Assessment and Plan: management per hospitalist's Subjective Date/time seen: 07/10/22 12:50pm Interval history: Patient is lying flat in bed. He has a BiPAP mask on. Nursing said that he was short of breath with nasal cannula. Now trying BiPAP. Another blood gas will be drawn and if patient does not any better will c
[2022-07-10 16:06] LABS: Alveolar/Arterial O2 Gradient 432.4 mmHg; Base Excess ABG -5.4 mEq/l (+/-2.0); Carboxyhemoglobin 0.2 % THb (0-2.0); Fractional Inspired Oxygen 100 %; HCO3 ABG 23.2 mEq/l (22.0-26.0); Methemoglobin ABG 0.5 %THb (0-1.5); Oxygen Content ABG 11.7 %vol (16.0-22.0); Oxygen Saturation ABG 99.1 % (95.0-100.0); PO2 ABG 215.4 mmHg (80.0-100.0); PO2 FiO2 Ratio Arterial Blood 2.15 %; Reduced Hemoglobin 1.3 %THb (0-5.0); Total Hemoglobin 8.1 g/dL (12.0-18.0)
[2022-07-10 16:08] LABS: PCO2 ABG 65.2 mmHg (35.0-45.0)
[2022-07-10 16:09] LABS: Device AMBU BAG; Modified Allen's Test Pass; Site Drawn RIGHT RADIAL; pH ABG 7.169 (7.350-7.450)
--- NOTE | 2022-07-10 16:14 | ECG_ITS ---
Measurements Intervals [place] Rate: 80 P: MS: 0 QRS: -65 QRSD: 197 T: 103 QT: 486 QTc: 561 Interpretive Statements ELECTRONIC VENTRICULAR PACEMAKER NO FURTHER INTERPRETATION POSSIBLE COMPARED TO ECG 07/09/2022 08:26:38 NO SIGNIFICANT CHANGES Electronically Signed On 07-11-2022 15:18:41 SALES REPRESENTATIVE SUPERVISOR by Tommy Washington M.D.
--- NOTE | 2022-07-10 16:18 | P.CODEBLUE_ITS ---
Code Blue Note Code Blue Note Time Arrived at Code Blue: code started at 328 pm Initial Rhythm on Arrival: PEA arrest Airway Management: Pt intubated during resuscitation Chest Compressions: In process on arrival to bedside Result of Code Blue: Pt transferred to ICU Cardiac Rhythm Post Code: PEA arrest throughout with rounds of epinephrine and bicarb push x 2 Code Blue Summary: The patient reported to be in respiratory distress and subsequently went unresponsive with no pulse. Chest compressions were immediately started. Following ACLS protocol, the patient received 7 rounds of epinephrine and 2 bicarbs and one amp of calcium chloride. The patient was intubated during the code. a copious amount of gren brown gastric contents noted which were suctioned prior to intubation. ROSC obtained at 342 pm. The patient was trasnfered to ICU for further treatment. Dr. Lawson was updated. targetted temperature management was initiated. patient placed on full ventilatory support in the ICU at 400 ml/PEEP 5 and rate of 20. will continue iv antibiotics for possible aspiration pneumonia. s ubsequently patient dropped his BP and levophed started. central line placed for iv vasopressors. sedation with fentanyl iv and versed iv. ABG post code with respiratory acidsosi. further vent adjustment per ABG ordered. repeat labs ordered. OG placed post intubation with dark brown gastric content. place on PPI gtt. h and h back at 6.2, will transfuse one unit prbc. hyponatremia/influenza A/bialtearl pneumonia/bicytopenia/BECKY/[id number] Cardiac PEA arrest likely due to respiratory failure with hypoxia and aspiration. CCT 60 mins.
--- NOTE | 2022-07-10 16:43 | PC.NURSE ---
Patient's family member Shaina has patient's phone. Family needed a contact off the phone to notify of change in status.
[2022-07-10] MEDS: NOREPINEPHRINE 8 MG/D5W 250 ML 8 MG/250 ML BAG 9.38 MG IV CONT (17:01)
[2022-07-10] MEDS: EPINEPHrine INJ 1 MG in DEXTROSE 5% IN WATER 250 ML 15.06 MG IV CONT (17:08)
[2022-07-10] MEDS: FENTANYL 2,500MCG/NS250ML(*CRX 2,500 MCG/250 ML BAG IV CONT (17:25)
[2022-07-10 17:26] LABS: Hematocrit 21.5 % (42.0-52.0); Immature Platelet Fraction Pct 7.2 % (0.9-11.2); Mean Corpuscular HGB Conc 28.8 g/dl (32-36); Mean Corpuscular Hemoglobin 21.5 pg (26-34); Mean Corpuscular Volume 74.7 fl (80-100); Platelet Count Result 143 k/mm3 (150-375); Red Blood Count 2.88 M/mm3 (4.6-6.20)
--- NOTE | 2022-07-10 17:30 | P.PCNBED_ITS ---
Procedures Central Line Placement Right Femoral: Central Line Date: 07/10/22 Central Line Time: 17:30 Consent: I have discussed with the patient and/or surrogate, the non-emergent placement of a central venous catheter, including its clinical necessity/indication and associated potential risks and complications. The patient and/or surrogate understand(s) and acknowledge(s) the need to proceed with central venous catheter insertion as an important element of the patient's clinical management. Time Out Performed: Yes Patient Position: supine Patient placed on monitor/pulse ox: Yes Provider Prep: mask, sterile gown, sterile gloves, Max. sterile barrier precautions, cap and hand hygiene with conventional soap/water or alcohol based hand rub Central line prep: 2% Chlorhexidine scrub Local anesthesia used: lidocaine 1% Amount of anesthesia used (ml): 5 Sterile US Technique with sterile gel/sterile probe covers: Yes Central line lumen inserted: triple Citizen [place]: 7 Length (cm): 20 Post Procedure: sutured in place, good blood return, all ports aspirated, flushed, capped, transparent dressing and antimicrobial product Post procedure x-ray: other (n/a with femoral placement) Complications: none
[2022-07-10 17:36] LABS: INR 2.1; Prothrombin Time 23.1 Seconds (11.1-14.7)
[2022-07-10 17:37] LABS: Partial Thromboplastin Time 29.8 SECONDS (22.3-36.8); White Blood Count 1.1 K/mm3 (4.5-10.0)
[2022-07-10 17:38] LABS: Hemoglobin 6.2 g/dL (14.0-18.0)
[2022-07-10 17:53] LABS: Glucose Point of Care 56 mg/dl (65-105)
[2022-07-10 17:54] LABS: Amphetamine Screen Urine Negative (Negative); Barbiturate Screen Urine Negative (Negative); Benzodiazepines Screen Urine Negative (Negative); Cannabinoid Screen Urine Negative (Negative); Cocaine Screen Urine Negative (Negative); Methadone Screen Urine Negative (Negative); Opiate Screen Urine Negative (Negative); Phencyclidine Screen Urine Negative (Negative)
[2022-07-10 17:55] LABS: Alveolar/Arterial O2 Gradient 464.8 mmHg; Base Excess ABG -1.4 mEq/l (+/-2.0); Carboxyhemoglobin 0.4 % THb (0-2.0); Fractional Inspired Oxygen 100 %; HCO3 ABG 26.1 mEq/l (22.0-26.0); Methemoglobin ABG 0.3 %THb (0-1.5); Oxygen Content ABG 11.6 %vol (16.0-22.0); Oxygen Saturation ABG 99.1 % (95.0-100.0); PCO2 ABG 60.1 mmHg (35.0-45.0); PO2 ABG 188.1 mmHg (80.0-100.0); PO2 FiO2 Ratio Arterial Blood 1.88 %; Reduced Hemoglobin 1.3 %THb (0-5.0); Total Hemoglobin 8.1 g/dL (12.0-18.0)
[2022-07-10 17:57] LABS: Lactic Acid Reflex 7.5 mmol/L (0.7-2.0)
[2022-07-10 17:57] LABS: Device VENTILATOR; Site Drawn RIGHT FEMORAL; pH ABG 7.255 (7.350-7.450)
[2022-07-10 17:58] LABS: Arterial Blood Gas PEEP 5 cmH2O; Arterial Blood Gas Tidal Volume 400 ml; Arterial Blood Gas Vent Mode CMV; Arterial Blood Gas Ventilator rate 20 /MIN
[2022-07-10] MEDS: MIDAZOLAM 100MG/NS 100ML(*CRX) 100 MG/100 ML BAG IV CONT (18:05)
[2022-07-10 18:11] LABS: Glucose Point of Care 140 mg/dl (65-105)
[2022-07-10 18:18] LABS: Alanine Aminotransferase 58 U/L (6-50); Albumin Level 2.8 g/dL (3.5-5.1); Alkaline Phosphatase 62 U/L (38-126); Anion Gap 15 mmol/L (8-16); Aspartate Amino Transferase 173 U/L (17-59); Bilirubin,Total 1.8 mg/dL (0.2-1.3); Blood Urea Nitrogen 92 mg/dL (9-20); Carbon Dioxide 27 mmol/L (22-30); Chloride 86 mmol/L (98-107); Creatine Kinase 321 U/L (55-170); Glucose 67 mg/dL (65-110); Magnesium 2.8 mg/dL (1.6-2.3); Sodium 128 mmol/L (137-145)
[2022-07-10 18:23] LABS: Band Neutrophils Percent 10 % (0-6); Lymphocytes Absolute Manual 0.22 K/mm3 (1.1-4.5); Metamyelocytes Percent 5 %; Monocytes Absolute Manual 0.11 K/mm3 (0.1-0.90); Monocytes Percent Manual 10 % (3-9); Neutrophils Absolute Manual 0.71 K/mm3 (1.3-6.7); Neutrophils Percent Manual 55 % (46-73); Total Cells Counted 20
[2022-07-10 18:25] LABS: Acanthocytes 2+ (NORMAL); Anisocytosis 2+ (NORMAL); Schistocytes None Seen (NORMAL)
[2022-07-10 18:26] LABS: Hypochromasia 2+ (NORMAL)
[2022-07-10] MEDS: DEXTROSE 50% 25 GM/50 ML SYRINGE IV PUSH (18:26)
[2022-07-10 18:27] LABS: Glucose Point of Care 141 mg/dl (65-105)
[2022-07-10 18:33] LABS: Troponin I 0.104 ng/mL (0.000-0.034)
--- NOTE | 2022-07-10 19:27 | PDONCCN ---
HPI - Date of Consult Date/Time: 07/10/22 19:27 Requesting Physician: Dalton Aaron MD Primary Care Provider: Serafin Ventura MD - Consult Narrative Reason for consult: Pancytopenia Narrative: Dmitri Bergeron is a 62 year old male with history of congestive heart failure, COPD, atrial fibrillation status post pacemaker placement and lower extremity diabetic ulcer came into the hospital with shortness of breath along with cough and flu-like symptoms for [address] chest showed pneumonia. D-dimer came back elevated but no evidence of pulmonary embolism. CBC showed profound leukopenia on admission. Hemoglobin was 9.2 now dropped down to 6.2. Iron level was less than 10. Iron saturation was only 3%. He was apparently coded today as well. There was concern for GI bleed as well. Patient currently intubated. Review of Systems - Review of Systems All systems reviewed & are unremarkable except as noted in HPI and bel - Neurologic Reports system reviewed and no additional complaints, except as documented PMFSH Medical History: Medical History (Last Reviewed 07/09/22 @ 12:58 by Tera Messer MD) Afib Anemia Arthritis CAD (coronary artery disease) Cellulitis Constipation COPD (chronic obstructive pulmonary disease) Depression Hypokalemia Insomnia, unspecified Iron deficiency anemia Memory loss TIFFANIE (obstructive sleep apnea) Osteoarthritis of first carpometacarpal joint of right hand Peripheral arterial disease xray 06/26 Plantar fasciitis, bilateral Presence of cardiac pacemaker Pulmonary hypertension Venous insufficiency (chronic) (peripheral) Venous stasis ulcer of ankle limited to breakdown of skin Vertigo Surgical History: Surgical History (Last Reviewed 07/09/22 @ 12:58 by Tera Messer MD) H/O colonoscopy 03/2021 per patient questionnaire History of coronary artery bypass graft x 3 2012 History of maze procedure ablation for atrial fib History of permanent cardiac pacemaker placement 10/2020 per patient questionnaire Family History: Family History (Last Reviewed 07/09/22 @ 12:58 by Tera Messer MD) Other Arthritis Asthma Depression Diabetes mellitus Heart disease - Social History Social History: Social History (Last Reviewed 07/09/22 @ 12:58 by Tera Messer MD) Gender Identity: Gender identity (if verbalized by the patient): Male Sexual Orientation: Sexual Orientation (if Verbalized by the Patient): Straight or Heterosexual Alcohol Use: Alcohol intake: current Drinks per week: 1 Substance Use: Substance use: never Substance use type: does not use Others: Spiritual care concerns: No Agree to blood products: Yes Smoking Status: Smoking status: Current some day smoker Tobacco type: cigarettes Second hand tobacco smoke exposure: No Smoking Pack-years: Smoking packs per day: 1 Smoking cigarettes per day: 20.0 Years smoked: 30 Smoking pack-years: 30.00 Social Determinants of Health: Has the Lack of Transportation Kept You From Medical Appointments or From Getting Medications?: No Within the Past 12 Months, Were You Worried Whether Your Food Would Run Out Before You Got Money to Buy More?: Often True What is Your Housing Situation Today?: I Have Housing Are You Worried That in the Next 2 Months, You May Not Have Your Own Housing to Live In?: Yes Do You Have Trouble Paying Your Heating Or Electricity Bill?: No Do You Have Trouble Paying For Medicines?: No Are You Currently Unemployed and Looking for Work?: No Highest Level of Education Completed: High School Diploma/GED Do You Have Trouble With Childcare or the Care of a Family Member?: No Exam - Vital Signs Vital Signs - 24 hr 07/09/22 20:27 07/09/22 20:10 07/09/22 20:00 Temperature 36.3 C L Pulse Rate 83 85 Respiratory Rate 20 18 Blood Pressure
[2022-07-10 19:28] LABS: Estimated CRCL calculation 24 ml/min; Estimated Glomerular Filt Rate 24
[2022-07-10] MEDS: VASOPRESSIN INJ 100 UNITS in DEXTROSE 5% 95 ML IV CONT (19:45)
--- NOTE | 2022-07-10 19:45 | PC.NURSE ---
Notified that staff needed assistance cleaning up the patient. Patient was confused and taking off his equipment, and he was incontinent. As I was going to the room to assist, a rapid response was called on the patient. The patient had become unresponsive in the middle of getting him cleaned up. The patient was unarousable with no pulse and agonal respirations, the rapid response was then turned into a code blue.
[2022-07-10] MEDS: hetaSTARCH 6%/NACL 500 ML 250 ML IV CONT (19:47)
[2022-07-10] MEDS: SODIUM BICARBONATE 8.4% 50 MEQ/50 ML SYRINGE 100 MEQ IV PUSH (20:16)
[2022-07-10 20:22] LABS: Reflex Lactic Acid Yes or No Add Lactic
[2022-07-10] MEDS: EPINEPHrine INJ 4 MG in DEXTROSE 5% IN WATER 250 ML 38.1 MG IV CONT (20:32)
[2022-07-10] MEDS: SODIUM CHLORIDE 0.9% IV 250 ML 30 ML IV CONT (20:33)
[2022-07-10 20:49] LABS: Creatine Kinase 398 U/L (55-170)
[2022-07-10] MEDS: SODIUM BICARBONATE 8.4% 150 MEQ in WATER, STERILE FOR INJECTION 950 ML 75 MEQ IV CONT (20:53)
[2022-07-10 20:54] LABS: Glucose Point of Care 186 mg/dl (65-105)
[2022-07-10 21:13] LABS: Troponin I 0.202 ng/mL (0.000-0.034)
[2022-07-10] MEDS: MINERAL OIL/WHITE PETROLATUM OINTMENT 1 APPLIC EACH EYE (21:32)
[2022-07-10 21:57] LABS: Lactic Acid Reflex 4.8 mmol/L (0.7-2.0)
[2022-07-10] MEDS: NOREPINEPHRINE 8 MG/D5W 250 ML 8 MG/250 ML BAG 54.38 MG IV CONT (22:11)
[2022-07-10 22:22] LABS: Immature Platelet Fraction Pct 7.3 % (0.9-11.2); Mean Platelet Volume 10.3 fl (7.4-10.4); Platelet Count Result 160 k/mm3 (150-375)
[2022-07-10 22:28] LABS: Hemoglobin 6.9 g/dL (14.0-18.0)
[2022-07-10 22:29] LABS: Magnesium 2.5 mg/dL (1.6-2.3)
[2022-07-10 22:33] LABS: INR 2.2; Prothrombin Time 23.5 Seconds (11.1-14.7)
[2022-07-10 22:34] LABS: Fibrinogen 446 mg/dl (215-510); Partial Thromboplastin Time 38.2 SECONDS (22.3-36.8)
[2022-07-11] VITALS (49 sets, daily range): BP systolic 94–134; BP diastolic 45–65; PULSE 79–82; RESP 20–24; TEMP 36.8–37.4; O2SAT 97–100; BMI 21.1
[2022-07-11] MEDS: SODIUM CHLORIDE 0.9% IV 250 ML 30 ML IV CONT
[2022-07-11 00:46] LABS: Glucose Point of Care 213 mg/dl (65-105)
[2022-07-11 01:04] LABS: Troponin I 0.277 ng/mL (0.000-0.034)
[2022-07-11] MEDS: NOREPINEPHRINE 8 MG/D5W 250 ML 8 MG/250 ML BAG 54.38 MG IV CONT (02:44)
[2022-07-11 04:39] LABS: Lactic Acid Reflex 2.2 mmol/L (0.7-2.0)
[2022-07-11 04:40] LABS: Alanine Aminotransferase 71 U/L (6-50); Albumin Level 2.5 g/dL (3.5-5.1); Alkaline Phosphatase 65 U/L (38-126); Anion Gap 9 mmol/L (8-16); Aspartate Amino Transferase 170 U/L (17-59); Blood Urea Nitrogen 100 mg/dL (9-20); Calcium 5.8 mg/dL (8.4-10.2); Carbon Dioxide 35 mmol/L (22-30); Chloride 81 mmol/L (98-107); Creatine Kinase 458 U/L (55-170); Glucose 263 mg/dL (65-110); Potassium 3.5 mmol/L (3.4-5.0); Sodium 125 mmol/L (137-145)
[2022-07-11 04:44] LABS: Hematocrit 27.1 % (42.0-52.0); Hemoglobin 8.4 g/dL (14.0-18.0); Immature Platelet Fraction Pct 7.5 % (0.9-11.2); Mean Corpuscular Hemoglobin 23.6 pg (26-34); Mean Corpuscular Volume 76.1 fl (80-100); Mean Platelet Volume 10.5 fl (7.4-10.4); Platelet Count Result 127 k/mm3 (150-375); Red Blood Count 3.56 M/mm3 (4.6-6.20); Red Cell Distribution Width 22.7 % (11.5-14.5)
[2022-07-11 04:55] LABS: Estimated CRCL calculation 25 ml/min; Estimated Glomerular Filt Rate 25
[2022-07-11 05:10] LABS: White Blood Count 1.6 K/mm3 (4.5-10.0)
[2022-07-11 05:11] LABS: Alveolar/Arterial O2 Gradient 282.5 mmHg; Base Excess ABG 9.9 mEq/l (+/-2.0); Fractional Inspired Oxygen 65 %; Methemoglobin ABG 0.2 %THb (0-1.5); Oxygen Content ABG 12.5 %vol (16.0-22.0); Oxygen Saturation ABG 94.4 % (95.0-100.0); Oxyhemoglobin 93.9 % THb (90.0-100.0); PO2 ABG 85.3 mmHg (80.0-100.0); PO2 FiO2 Ratio Arterial Blood 1.31 %; Reduced Hemoglobin 5.9 %THb (0-5.0); Total Hemoglobin 9.4 g/dL (12.0-18.0)
[2022-07-11 05:13] LABS: pH ABG 7.265 (7.350-7.450)
[2022-07-11 05:14] LABS: Arterial Blood Gas PEEP 5 cmH2O; Arterial Blood Gas Vent Mode CMV; Arterial Blood Gas Ventilator rate 20 /MIN; Device VENTILATOR; Modified Allen's Test Pass; Site Drawn LEFT RADIAL
[2022-07-11 05:15] LABS: Arterial Blood Gas Tidal Volume 400 ml
[2022-07-11] MEDS: INSULIN ASPART (*BKC) 100 UNITS/ML SUB-Q (05:19)
[2022-07-11 05:32] LABS: Anisocytosis 2+ (NORMAL); Hypochromasia 3+ (NORMAL); Macrocytosis 2+ (NORMAL); Microcytosis 1+ (NORMAL); Ovalocytes 2+ (NORMAL); Platelet Estimate Decreased (Adequate); Poikilocytosis 2+ (NORMAL); Spherocytes 2+ (NORMAL); Target Cells 2+ (NORMAL); Tear Drop Cells 1+ (NORMAL)
[2022-07-11 05:33] LABS: Crenated RBC 1+ (NORMAL); Schistocytes None Seen (NORMAL)
[2022-07-11 05:45] LABS: Band Neutrophils Percent 64 % (0-6); Lymphocytes Absolute Manual 0.44 K/mm3 (1.1-4.5); Metamyelocytes Percent 7 %; Monocytes Percent Manual 0 % (3-9); Neutrophils Absolute Manual 1.04 K/mm3 (1.3-6.7); Neutrophils Percent Manual 1 % (46-73); Total Cells Counted 16
[2022-07-11 05:47] LABS: IFOB Positive Control Positive; Immunochemical Fecal Occult Bl Positive (N)
[2022-07-11 06:42] LABS: Immature Platelet Fraction Pct 6.9 % (0.9-11.2); Mean Platelet Volume 10.2 fl (7.4-10.4); Platelet Count Result 120 k/mm3 (150-375)
[2022-07-11 07:15] LABS: Prothrombin Time 21.6 Seconds (11.1-14.7)
[2022-07-11 07:23] LABS: Fibrinogen 407 mg/dl (215-510)
[2022-07-11] MEDS: NOREPINEPHRINE 8 MG/D5W 250 ML 8 MG/250 ML BAG 52.5 MG IV CONT (07:26)
[2022-07-11 07:54] LABS: D Dimer 8.42 ug/mL (<0.48)
[2022-07-11] MEDS: CALCIUM GLUC 2,000 MG/NS 100ML 2,000 MG/100 ML BAG 100 MG IVPB (07:55)
[2022-07-11] MEDS: ALBUTEROL SULFATE NEB 2.5 MG/3 ML INH INHALATION ×3 (08:05→20:40)
[2022-07-11] MEDS: IPRATROPIUM BR 0.02% INH SOLN 0.5 MG/2.5 ML VIAL INHALATION ×3 (08:05→20:39)
[2022-07-11 08:06] LABS: INR 1.9; Prothrombin Time 20.8 Seconds (11.1-14.7)
[2022-07-11 08:07] LABS: Partial Thromboplastin Time 40.6 SECONDS (22.3-36.8)
[2022-07-11] MEDS: SODIUM CHLORIDE 0.9% IV 1,000 ML 75 ML IV CONT ×2 (08:15→20:55)
[2022-07-11] MEDS: ALBUMIN HUMAN 25% 25 GM/100 ML 100 ML IVPB ×4 (08:21→23:33)
[2022-07-11] MEDS: MINERAL OIL/WHITE PETROLATUM OINTMENT 1 APPLIC EACH EYE ×2 (08:30→20:51)
[2022-07-11] MEDS: OSELTAMIVIR PHOSPHATE ORAL SUSP 30 MG/5 ML SYRINGE PO ×2 (08:31→21:12)
[2022-07-11 08:37] LABS: Glucose Point of Care 188 mg/dl (65-105)
--- NOTE | 2022-07-11 09:34 | P.PNNP_ITS ---
Progress Note: A&P Assessment and Plan (1) BECKY (acute kidney injury): Code(s): N17.9 - Acute kidney failure, unspecified Status: Acute Assessment and Plan: * normal baseline creatinine * evaluation to date: * FeUrea seems to support prerenal azotemia * renal ultrasound normal * CK is normal * UA is bland except for 1+ blood but no red cells. * He is still making some urine. 700cc yesterday and 450 overnight. * His urine is yellow. I looked at it under the microscope and there are tubular epithelial cells, muddy brown casts, and no white cell casts, dysmorphic red cells, or red cell casts. This looks like ATN. * His creatinine jumped up to 2.7 yesterday and is at 2.6 today. * Most likely this is ATN due to infection and hypotension. * Pressor requirements are decreasing. * Will continue to observe * discussed with Dr Lawson (2) Hyponatremia: Code(s): E87.1 - Hypo-osmolality and hyponatremia Status: Acute Assessment and Plan: * normal sodium at baseline * admitted with sodium of 124 * multiple risk factors: * influenza/pneumonia * BECKY/ARF * diuretics * known COPD * possible malignancy? (see CT of chest results) * TSH is normal. Cortisol is pending . The this was not done. Will reorder. osmolality tests are pending chest x-ray shows diffuse bilateral airspace disease, unclear if fluid or pneumonia. The patient is emaciated. Could he have an occult cancer? * this has been up and down. It dropped as low as 118 and then today was 128. It had dropped from 124-118 in just about 7 hours so his true baseline yesterday was 124 not 118. Thus increasing to 128 was not too rapid a correction because that part of it was not chronic. * the patient is not taking anything p.o. because of the intubation. * consider changing all IV meds/IVPB to use normal saline as carrier fluid * He is getting obligate IV fluids with his pressors and antibiotics. Will check a sodium later today. Consider 3% if the sodium continues to drop. With his renal failure he may not be able to correct the sodium on his own. (3) Acute respiratory failure: Code(s): J96.00 - Acute respiratory failure, unspecified whether with hypoxia or hypercapnia Status: Acute Assessment and Plan: * respiratory status seems tenuous * due influenza and pneumonia * Pulmonary consulted * Intubated. (4) Influenza: Code(s): J11.1 - Influenza due to unidentified influenza virus with other respiratory manifestations Status: Acute Assessment and Plan: * as noted by admission testing * on Tamiflu (5) Pneumonia: Code(s): J18.9 - Pneumonia, unspecified organism Status: Acute Assessment and Plan: * concern is for aspiration coupled with viral +/- bacterial etiology * on broad spectrum antibiotics * on Tamiflu * oxygen support * follow respiratory status closely (6) Chronic diastolic (congestive) heart failure: Code(s): I50.32 - Chronic diastolic (congestive) heart failure Status: Chronic Assessment and Plan: * Cardiology following * echo shows good LV ejection fraction, moderate pulmonary hypertension, moderate TR, moderate MR, severe biatrial enlargement. * follow volume status carefully given respiratory issues and BECKY (7) Anemia: Code(s): D64.9 - Anemia, unspecified Status: Acute Assessment and Plan: * presumably due to BECKY/ARF along with acute illness * Hemoglobin ranging f
--- NOTE | 2022-07-11 09:34 | PM.PNNEP ---
Progress Note: A&P Assessment and Plan (1) BECKY (acute kidney injury): Code(s): N17.9 - Acute kidney failure, unspecified Status: Acute Assessment and Plan: normal baseline creatinine evaluation to date: FeUrea seems to support prerenal azotemia renal ultrasound normal CK is normal UA is bland except for 1+ blood but no red cells. He is still making some urine. 700cc yesterday and 450 overnight. His urine is yellow. I looked at it under the microscope and there are tubular epithelial cells, muddy brown casts, and no white cell casts, dysmorphic red cells, or red cell casts. This looks like ATN. His creatinine jumped up to 2.7 yesterday and is at 2.6 today. Most likely this is ATN due to infection and hypotension. Pressor requirements are decreasing. Will continue to observe discussed with Dr Lawson (2) Hyponatremia: Code(s): E87.1 - Hypo-osmolality and hyponatremia Status: Acute Assessment and Plan: normal sodium at baseline admitted with sodium of 124 multiple risk factors: influenza/pneumonia BECKY/ARF diuretics known COPD possible malignancy? (see CT of chest results) TSH is normal. Cortisol is pending . The this was not done. Will reorder. osmolality tests are pending chest x-ray shows diffuse bilateral airspace disease, unclear if fluid or pneumonia. The patient is emaciated. Could he have an occult cancer? this has been up and down. It dropped as low as 118 and then today was 128. It had dropped from 124-118 in just about 7 hours so his true baseline yesterday was 124 not 118. Thus increasing to 128 was not too rapid a correction because that part of it was not chronic. the patient is not taking anything p.o. because of the intubation. consider changing all IV meds/IVPB to use normal saline as carrier fluid He is getting obligate IV fluids with his pressors and antibiotics. Will check a sodium later today. Consider 3% if the sodium continues to drop. With his renal failure he may not be able to correct the sodium on his own. (3) Acute respiratory failure: Code(s): J96.00 - Acute respiratory failure, unspecified whether with hypoxia or hypercapnia Status: Acute Assessment and Plan: respiratory status seems tenuous due influenza and pneumonia Pulmonary consulted Intubated. (4) Influenza: Code(s): J11.1 - Influenza due to unidentified influenza virus with other respiratory manifestations Status: Acute Assessment and Plan: as noted by admission testing on Tamiflu (5) Pneumonia: Code(s): J18.9 - Pneumonia, unspecified organism Status: Acute Assessment and Plan: concern is for aspiration coupled with viral +/- bacterial etiology on broad spectrum antibiotics on Tamiflu oxygen support follow respiratory status closely (6) Chronic diastolic (congestive) heart failure: Code(s): I50.32 - Chronic diastolic (congestive) heart failure Status: Chronic Assessment and Plan: Cardiology following echo shows good LV ejection fraction, moderate pulmonary hypertension, moderate TR, moderate MR, severe biatrial enlargement. follow volume status carefully given respiratory issues and BECKY (7) Anemia: Code(s): D64.9 - Anemia, unspecified Status: Acute Assessment and Plan: presumably due to BECKY/ARF along with acute illness Hemoglobin ranging fom 8.9-9. 5. Now 9.3 (8) Diabetes mellitus: Qualifiers: Diabetes mellitus type: type 2 Diabetes mellitus skilled nursing insulin use: without regional intermodal truck driver use Diabetes mellitus complication status: without complication Qualified Code(s): E11.9 - Type 2 diabetes mellitus without complications Code(s): E11.9 - Type 2 diabetes mellitus without complications Status: Chronic Assessment and Plan: management per hospitalist's Subjectiv
[2022-07-11] MEDS: SODIUM CHLORIDE 500 MG TABLET 1000 MG PO ×2 (09:39→18:16)
[2022-07-11] MEDS: IRON SUCROSE COMPLEX 500 MG in SODIUM CHLORIDE 0.9% IV 250 ML 78.57 MG IVPB (09:43)
[2022-07-11] MEDS: FILGRASTIM-SNDZ 480 MCG/0.8 ML SYRINGE SUB-Q (09:47)
--- NOTE | 2022-07-11 09:48 | WPDCNINT ---
Assessment and Plan Assessment and plan (1) Cardiac arrest: Code(s): I46.9 - Cardiac arrest, cause unspecified Status: Acute Assessment and Plan: 07/10:Patient with PEA arrest, unknown etiology could be multifactorial -ROSC in 15 minutes -patient in shock, initially was on maxed out on 3 pressors -currently on Levophed and vasopressin, continue to maintain mean arterial pressures > 65 mmHg for adequate end organ perfusion -lactic acid trending down -continue to monitor urine output and renal function -cardiology following the patient Echocardiogram 07/10/2022 EF of 55%, hypokinesis of apical inferior and apical lateral jaime, right nasal chamber dimension is severely enlarged, left atrial chamber dimension is severely enlarged, moderate tricuspid regurg, moderate pulmonary hypertension with RVSP of 56 mmHg, [id number] mitral valve regurg (2) Shock: Code(s): R57.9 - Shock, unspecified Status: Acute Assessment and Plan: As above likely related to cardiac arrest, septic shock -07/09: Blood cultures negative x2 -07/09 sputum culture positive for streptococcal pneumonia -07/09: MRSA screen is negative -07/10: Blood cultures pending -07/10: Urine cultures pending -07/10: Sputum cultures pending continue vancomycin, imipenem and azithromycin (3) Acute respiratory failure: Code(s): J96.00 - Acute respiratory failure, unspecified whether with hypoxia or hypercapnia Status: Acute Assessment and Plan: Acute respiratory failure likely related to cardiac arrest, pneumonia,, ARDS -intubated on 07/10/2022 -continue CMV mode of ventilation, low tidal volume strategy -currently on peep of 5 and 65% FiO2 with adequate O2 sats and PO2 on the ABGs -chest x-ray this morning: Diffuse lung disease with slight worsening in the right mid and lower lung zones, consistent with pneumonia and/or pulmonary edema -ABGs reviewed, ventilator settings adjusted -continue bronchodilators -sedated with fentanyl and Versed infusion (4) Pneumonia: Code(s): J18.9 - Pneumonia, unspecified organism Status: Acute Assessment and Plan: Bilateral pneumonia, chest x-ray as above -continue antibiotics as above (5) Acute renal failure: Code(s): N17.9 - Acute kidney failure, unspecified Status: Acute Assessment and Plan: Acute kidney injury likely related shock, infectious process, pre renal azotemia, ATN, attention, vasopressors -ultrasound is normal CK was normal -patient receiving maintenance IV fluids -appreciate nephrology following the patient, -continue to monitor urine output, renal function electrolytes Hyponatremia: Could be related to influenza, pneumonia, acute kidney injury, diuretics, possible malignancy (CTA chest report) -could be SIADH (6) Anemia: Code(s): D64.9 - Anemia, unspecified Status: Acute Assessment and Plan: Anemia could be multifactorial likely related to GI bleed, and deficiency anemia, renal dysfunction -appreciate hematology following the patient -patient has been started on IV iron -LDH and haptoglobin along with Bridgette test is pending -transfuse packed RBCs as needed -GI has been consulted for possible GI bleed -stool for occult blood was positive on 07/11/2022 (7) Pancytopenia: Code(s): D61.818 - Other pancytopenia Status: Acute Assessment and Plan: Pancytopenia and leukopenia likely related to critical care illness versus possible underlying malignancy -patient started on Neupogen - will continue to monitor (8) Diabetes mellitus: Qualifiers: Diabetes mellitus type: type 2 Diabetes mellitus hay farmer insulin use: without nursing home use Diabetes mellitus complication status: without complication Qualified Code(s): E11.9 - Type 2 diabetes mellitus without complications Code(s): E11.9 - Type 2 diabetes mellitus without complications Status: Chronic Assessment an
--- NOTE | 2022-07-11 11:48 | PCNFU ---
Nutrition Follow-Up Complete: Unintentional weight loss related to reduced appetite and intake as evidenced by pt report. Goal: PO intake 75% of meals and supplements Patient is not meeting goal. New goal: Meet estimated nutritional needs. Pt current nutrition is NPO. Last recorded weight is 68.8 kg. Bowel Motility:No Bm reported. Labs Reviewed:Glu 263, BUN 100, Cr 2.6, Na 125 Meds Noted:Fentanyl, Versed, Levophed, Zithromax Skin: WNL Additional Notes: Patient current with vent. No nutrition at this time. Monitor daily in ICU rounds.
[2022-07-11 11:53] LABS: Glucose Point of Care 191 mg/dl (65-105)
[2022-07-11] MEDS: NOREPINEPHRINE 8 MG/D5W 250 ML 8 MG/250 ML BAG 48.75 MG IV CONT (12:10)
[2022-07-11 16:25] LABS: Glucose Point of Care 187 mg/dl (65-105)
--- NOTE | 2022-07-11 16:34 | P.PNIM_ITS ---
Progress Note: A&P Assessment and Plan (1) Sepsis: Code(s): A41.9 - Sepsis, unspecified organism Status: Acute Assessment and Plan: * patient presented with sepsis * Worsened to septic shock likely due to additional aspiration pneumonia * On broad-spectrum antibiotic with vancomycin Primaxin and azithromycin. * MRSA screen negative * Blood culture no growth to date * sputum culture positive for Streptococcus pneumonia * Required her to service of pressure since vasopressors (2) Acute respiratory failure: Code(s): J96.00 - Acute respiratory failure, unspecified whether with hypoxia or hypercapnia Status: Acute Assessment and Plan: * worsening initially hypoxic later hypercapnia developed * Secondary to aspiration pneumonia/COPD /Pneumonia * BiPAP initiated but later intubated on 07/10/2022 * Currently on mechanical ventilation full support per snack bar cashier (3) Pneumonia: Code(s): J18.9 - Pneumonia, unspecified organism Status: Acute Assessment and Plan: * CTA: No PE, consolidation in the lower lobes, left > right, possible aspiration, debris found in the esophagus * sputum culture positive for Streptococcus pneumonia * currently on vancomycin Primaxin and azithromycin * Blood culture x2 is negative (4) Chronic diastolic (congestive) heart failure: Code(s): I50.32 - Chronic diastolic (congestive) heart failure Status: Chronic Assessment and Plan: * Acute and of chronic most likely diastolic CHF exacerbation associated with elevated troponin * Serial troponin flat most likely related to CHF exacerbation * Cardiology consult * furosemide 20mg IV BID, restarted per nephrology now on hold * BNP 54145 * Sodium noted to be 118 * Daily weights * Trend urine output * Strict I&Os * Trend renal function with BECKY findings (5) Mixed hyperlipidemia: Code(s): E78.2 - Mixed hyperlipidemia Status: Acute Assessment and Plan: * CK is 64 * AST/ALT stable * No home statin * Lipid panel Cholesterol 91, HDL 15, LDL , Triglycerides 82 (6) Essential (primary) hypertension: Code(s): I10 - Essential (primary) hypertension Status: Acute Assessment and Plan: * currently hypotensive all antihypertensive on hold (7) Paroxysmal atrial fibrillation: Code(s): I48.0 - Paroxysmal atrial fibrillation Status: Acute Assessment and Plan: * EKG does shows paced rhythm * Underlying A.Fib * Cardiology is consulted * Consider anticoagulation which is contraindicated due to GI bleed and anemia * Trend Heart rate (8) Diabetes mellitus: Qualifiers: Diabetes mellitus type: type 2 Diabetes mellitus extermination supervisor insulin use: without retirement use Diabetes mellitus complication status: without complication Qualified Code(s): E11.9 - Type 2 diabetes mellitus without complications Code(s): E11.9 - Type 2 diabetes mellitus without complications Status: Chronic Assessment and Plan: * Current glucose is 97 * Insulin Lispro sliding scale, * Accu-checks qAc and HS * Hold oral metformin for now * HgbA1c 5.7 * Insulin sliding scale * Trend glucose * Adjust therapy as indicated (9) CAD (coronary artery disease):
--- NOTE | 2022-07-11 16:34 | PM.IMPN ---
Progress Note: A&P Assessment and Plan (1) Sepsis: Code(s): A41.9 - Sepsis, unspecified organism Status: Acute Assessment and Plan: patient presented with sepsis Worsened to septic shock likely due to additional aspiration pneumonia On broad-spectrum antibiotic with vancomycin Primaxin and azithromycin. MRSA screen negative Blood culture no growth to date sputum culture positive for Streptococcus pneumonia Required her to service of pressure since vasopressors (2) Acute respiratory failure: Code(s): J96.00 - Acute respiratory failure, unspecified whether with hypoxia or hypercapnia Status: Acute Assessment and Plan: worsening initially hypoxic later hypercapnia developed Secondary to aspiration pneumonia/COPD /Pneumonia BiPAP initiated but later intubated on 07/10/2022 Currently on mechanical ventilation full support per cuff knitter (3) Pneumonia: Code(s): J18.9 - Pneumonia, unspecified organism Status: Acute Assessment and Plan: CTA: No PE, consolidation in the lower lobes, left > right, possible aspiration, debris found in the esophagus sputum culture positive for Streptococcus pneumonia currently on vancomycin Primaxin and azithromycin Blood culture x2 is negative (4) Chronic diastolic (congestive) heart failure: Code(s): I50.32 - Chronic diastolic (congestive) heart failure Status: Chronic Assessment and Plan: Acute and of chronic most likely diastolic CHF exacerbation associated with elevated troponin Serial troponin flat most likely related to CHF exacerbation Cardiology consult furosemide 20mg IV BID, restarted per nephrology now on hold BNP 31605 Sodium noted to be 118 Daily weights Trend urine output Strict I&Os Trend renal function with BECKY findings (5) Mixed hyperlipidemia: Code(s): E78.2 - Mixed hyperlipidemia Status: Acute Assessment and Plan: CK is 64 AST/ALT stable No home statin Lipid panel Cholesterol 91, HDL 15, LDL , Triglycerides 82 (6) Essential (primary) hypertension: Code(s): I10 - Essential (primary) hypertension Status: Acute Assessment and Plan: currently hypotensive all antihypertensive on hold (7) Paroxysmal atrial fibrillation: Code(s): I48.0 - Paroxysmal atrial fibrillation Status: Acute Assessment and Plan: EKG does shows paced rhythm Underlying A.Fib Cardiology is consulted Consider anticoagulation which is contraindicated due to GI bleed and anemia Trend Heart rate (8) Diabetes mellitus: Qualifiers: Diabetes mellitus type: type 2 Diabetes mellitus petroleum terminal plant operator insulin use: without petroleum terminal plant operator use Diabetes mellitus complication status: without complication Qualified Code(s): E11.9 - Type 2 diabetes mellitus without complications Code(s): E11.9 - Type 2 diabetes mellitus without complications Status: Chronic Assessment and Plan: Current glucose is 97 Insulin Lispro sliding scale, Accu-checks qAc and HS Hold oral metformin for now HgbA1c 5.7 Insulin sliding scale Trend glucose Adjust therapy as indicated (9) CAD (coronary artery disease): Qualifiers: Coronary Disease-Associated Artery/Lesion type: [place] artery [place] vs. transplanted heart: [place] heart Associated angina: without angina Qualified Code(s): I25.10 - Atherosclerotic heart disease of [place] coronary artery without angina pectoris Code(s): I25.10 - Atherosclerotic heart disease of [place] coronary artery without angina pectoris Status: Acute Assessment and Plan: CABG x 3 in the past Start low dose aspirin Telemonitor Cardiology on board (10) COPD exacerbation: Code(s): J44.1 - Chronic obstructive pulmonary disease with (acute) exac
[2022-07-11 18:19] LABS: Hematocrit 23.1 % (42.0-52.0); Hemoglobin 7.5 g/dL (14.0-18.0); Immature Platelet Fraction Pct 8.7 % (0.9-11.2); Mean Corpuscular HGB Conc 32.5 g/dl (32-36); Mean Corpuscular Hemoglobin 23.6 pg (26-34); Mean Corpuscular Volume 72.6 fl (80-100); Platelet Count Result 85 k/mm3 (150-375); Red Blood Count 3.18 M/mm3 (4.6-6.20); Red Cell Distribution Width 22.5 % (11.5-14.5)
[2022-07-11 18:24] LABS: White Blood Count 1.9 K/mm3 (4.5-10.0)
[2022-07-11 18:32] LABS: Creatine Kinase 449 U/L (55-170)
[2022-07-11 18:34] LABS: Creatine Kinase 475 U/L (55-170)
[2022-07-11 18:47] LABS: INR 1.8; Prothrombin Time 20.3 Seconds (11.1-14.7)
[2022-07-11 18:48] LABS: Partial Thromboplastin Time 46.3 SECONDS (22.3-36.8)
[2022-07-11 18:57] LABS: Anion Gap 7 mmol/L (8-16); Blood Urea Nitrogen 94 mg/dL (9-20); Calcium 6.2 mg/dL (8.4-10.2); Carbon Dioxide 36 mmol/L (22-30); Chloride 83 mmol/L (98-107); Estimated CRCL calculation 36 ml/min; Estimated Glomerular Filt Rate 36; Glucose 155 mg/dL (65-110); Sodium 126 mmol/L (137-145)
[2022-07-11] MEDS: NOREPINEPHRINE 8 MG/D5W 250 ML 8 MG/250 ML BAG 37.5 MG IV CONT (19:15)
[2022-07-11 20:19] LABS: Glucose Point of Care 157 mg/dl (65-105)
[2022-07-11 21:19] LABS: Creatine Kinase 443 U/L (55-170)
[2022-07-11 23:45] LABS: Glucose Point of Care 148 mg/dl (65-105)
[2022-07-12] VITALS (98 sets, daily range): BP systolic 95–126; BP diastolic 48–60; PULSE 79–83; RESP 19–25; TEMP 36.2–37.2; O2SAT 89–99
[2022-07-12 02:56] LABS: Vancomycin Trough 14.9 ug/mL (10.0-20.0)
[2022-07-12] MEDS: IPRATROPIUM BR 0.02% INH SOLN 0.5 MG/2.5 ML VIAL INHALATION ×4 (03:16→21:00)
[2022-07-12] MEDS: ALBUTEROL SULFATE NEB 2.5 MG/3 ML INH INHALATION ×4 (03:16→21:00)
[2022-07-12] MEDS: NOREPINEPHRINE 8 MG/D5W 250 ML 8 MG/250 ML BAG 22.5 MG IV CONT (03:42)
[2022-07-12 05:02] LABS: Glucose Point of Care 181 mg/dl (65-105)
[2022-07-12] MEDS: ALBUMIN HUMAN 25% 25 GM/100 ML 100 ML IVPB (05:31)
[2022-07-12 05:44] LABS: Hematocrit 21.5 % (42.0-52.0); Immature Platelet Fraction Pct 8.4 % (0.9-11.2); Mean Corpuscular HGB Conc 32.1 g/dl (32-36); Mean Corpuscular Hemoglobin 23.7 pg (26-34); Mean Corpuscular Volume 73.9 fl (80-100); Platelet Count Result 71 k/mm3 (150-375); Red Blood Count 2.91 M/mm3 (4.6-6.20); White Blood Count 2.5 K/mm3 (4.5-10.0)
[2022-07-12 05:55] LABS: Alanine Aminotransferase 51 U/L (6-50); Alkaline Phosphatase 59 U/L (38-126); Anion Gap 6 mmol/L (8-16); Aspartate Amino Transferase 126 U/L (17-59); Blood Urea Nitrogen 86 mg/dL (9-20); Calcium 6.5 mg/dL (8.4-10.2); Carbon Dioxide 35 mmol/L (22-30); Chloride 82 mmol/L (98-107); Creatine Kinase 401 U/L (55-170); Estimated CRCL calculation 38 ml/min; Estimated Glomerular Filt Rate 39; Glucose 163 mg/dL (65-110); Potassium 3.1 mmol/L (3.4-5.0); Sodium 123 mmol/L (137-145)
[2022-07-12 06:05] LABS: Alveolar/Arterial O2 Gradient 218.7 mmHg; Base Excess ABG 9.1 mEq/l (+/-2.0); Carboxyhemoglobin 0.1 % THb (0-2.0); Fractional Inspired Oxygen 50 %; HCO3 ABG 36.6 mEq/l (22.0-26.0); Methemoglobin ABG 0.2 %THb (0-1.5); Oxygen Content ABG 14.2 %vol (16.0-22.0); Oxygen Saturation ABG 90.5 % (95.0-100.0); Oxyhemoglobin 90.2 % THb (90.0-100.0); PO2 ABG 63.1 mmHg (80.0-100.0); PO2 FiO2 Ratio Arterial Blood 1.26 %; Reduced Hemoglobin 9.5 %THb (0-5.0); Total Hemoglobin 11.2 g/dL (12.0-18.0); pH ABG 7.359 (7.350-7.450)
[2022-07-12 06:05] LABS: Hemoglobin 6.9 g/dL (14.0-18.0)
[2022-07-12 06:06] LABS: PCO2 ABG 66.4 mmHg (35.0-45.0)
[2022-07-12 06:07] LABS: Arterial Blood Gas PEEP 5 cmH2O; Arterial Blood Gas Vent Mode CMV; Arterial Blood Gas Ventilator rate 24 /MIN; Device VENTILATOR; Modified Allen's Test Pass; Site Drawn RIGHT RADIAL
[2022-07-12 06:08] LABS: Arterial Blood Gas Tidal Volume 400 ml
[2022-07-12 06:11] LABS: Band Neutrophils Percent 15 % (0-6); Lymphocytes Absolute Manual 0.32 K/mm3 (1.1-4.5); Monocytes Absolute Manual 0.37 K/mm3 (0.1-0.90); Monocytes Percent Manual 15 % (3-9); Neutrophils Percent Manual 57 % (46-73); Total Cells Counted 100
[2022-07-12 06:12] LABS: Anisocytosis 1+ (NORMAL); Hypochromasia 2+ (NORMAL); Ovalocytes 1+ (NORMAL); Platelet Estimate Decreased (Adequate); Schistocytes 1+ (NORMAL)
[2022-07-12] MEDS: IRON SUCROSE COMPLEX 500 MG in SODIUM CHLORIDE 0.9% IV 250 ML 78.57 MG IVPB (08:20)
[2022-07-12] MEDS: SODIUM CHLORIDE 3% 180 ML 30 ML IV CONT (08:21)
[2022-07-12 09:40] LABS: Glucose Point of Care 147 mg/dl (65-105)
[2022-07-12] MEDS: OSELTAMIVIR PHOSPHATE ORAL SUSP 30 MG/5 ML SYRINGE PO ×2 (10:58→21:15)
[2022-07-12] MEDS: MINERAL OIL/WHITE PETROLATUM OINTMENT 1 APPLIC EACH EYE ×2 (11:00→21:13)
[2022-07-12] MEDS: SODIUM CHLORIDE 500 MG TABLET 1000 MG PO ×2 (11:03→16:39)
--- NOTE | 2022-07-12 12:12 | PCFNICU ---
ICU Rounding Note: Pt current nutrition is Nepro at 10 ml/hr. Nutrition recommendation: Goal rate 20 ml/hr Last recorded weight is 69.1 kg. Bowel Motility:FMS Labs Reviewed:Glu 163,GFR 39,BUN 86,Cr 1.8, Na 123,Hgb 6.9,Hct 21.5,K 3.1 Meds Noted:Fentanyl, Versed, Levophed, Zithromax Skin: WNL Additional Notes: Patient remains on mechanical vent. Starting on trickle feedings of Nepro today. Flush 30 ml q 4 hours. Agree with diet orders. Following daily in ICU rounds and reassessing every Sunday and Sunday.
[2022-07-12] MEDS: FILGRASTIM-SNDZ 480 MCG/0.8 ML SYRINGE SUB-Q (12:25)
--- NOTE | 2022-07-12 12:26 | WPDNEURCNPN ---
Assessment and Plan Assessment and plan (1) Cardiac arrest: Code(s): I46.9 - Cardiac arrest, cause unspecified Status: Acute (2) Acute respiratory failure: Code(s): J96.00 - Acute respiratory failure, unspecified whether with hypoxia or hypercapnia Status: Acute (3) Influenza: Code(s): J11.1 - Influenza due to unidentified influenza virus with other respiratory manifestations Status: Acute (4) CAD (coronary artery disease): Qualifiers: Associated angina: without angina Coronary Disease-Associated Artery/Lesion type: [place] artery [place] vs. transplanted heart: [place] heart Qualified Code(s): I25.10 - Atherosclerotic heart disease of [place] coronary artery without angina pectoris Code(s): I25.10 - Atherosclerotic heart disease of [place] coronary artery without angina pectoris Status: Acute (5) Paroxysmal atrial fibrillation: Code(s): I48.0 - Paroxysmal atrial fibrillation Status: Acute (6) Pacemaker: Code(s): Z95.0 - Presence of cardiac pacemaker Status: Acute Plan Dmitri Bergeron is a 62 year old male with a history of atrial fibrillation, CAD s/p CABG, COPD who presented on 07/09 due to respiratory distress, found to be influenza A positive, complicated by respiratory failure and subsequent cardiac arrest. Concern for post-arrest anoxic brain injury. Patient is currently DNR. - Will obtain routine EEG -- patient is sedated currently, so it will not be true reflection of background activity - Unable to get MRI due to patient's critical status, but also due to pacemaker - Can repeat CT head tomorrow to see if any subacute changes from inciting event Consult date: 07/12/22 Time Seen: 12:26 Reason for consult: Concern for anoxic brain injury HPI: Dmitri Bergeron is a 62 year old male with a hitory of atrial fibrillation, CAD s/p CABG, COPD who presented on 07/09 due to respiratory distress. Patient was found to be influenza A positive in the emergency room. CTA of the chest showed changes concerning for possible pneumonia. Patient was admitted and started on antibiotics. The following day, patient was placed on BIPAP due to hypercapnia. On the same day, patient had code blue event due to PEA arrest. He received 7 rounds of epinephrine with ROSC acheived after 14 minutes. He arrived to the ICU intubated and on Levophed as well as fentanyl and midazolam. CT head showed no evidence of acute changes. There have not been any concerns for seizure-like activity. Review of Systems Review of Systems: ROS unobtainable: Yes unobtainable due to endotracheal tube and unobtainable due to medical condition PMFSH Past Medical History Medical History Afib Anemia Arthritis CAD (coronary artery disease) Cellulitis Constipation COPD (chronic obstructive pulmonary disease) Depression Hypokalemia Insomnia, unspecified Iron deficiency anemia Memory loss TIFFANIE (obstructive sleep apnea) Osteoarthritis of first carpometacarpal joint of right hand Peripheral arterial disease xray 06/26 Plantar fasciitis, bilateral Presence of cardiac pacemaker Pulmonary hypertension Venous insufficiency (chronic) (peripheral) Venous stasis ulcer of ankle limited to breakdown of skin Vertigo Surgical History Surgical History H/O colonoscopy 03/2021 per patient questionnaire History of coronary artery bypass graft x 3 2012 History of maze procedure ablation for atrial fib History of permanent cardiac pacemaker placement 10/2020 per patient questionnaire Family History Family History Other Arthritis Asthma Depression Diabetes mellitus Heart disease Social History Social History Smoking packs per day: 1 Smoking cigarettes per day: 20.0 Years smoked:
[2022-07-12 12:49] LABS: Pneumococcal Antigen Urine Not Detected (Not Detected)
--- NOTE | 2022-07-12 13:53 | WPDINTPN ---
Progress Note: A&P Assessment and Plan (1) Cardiac arrest: Code(s): I46.9 - Cardiac arrest, cause unspecified Status: Acute Assessment and Plan: 07/10:Patient with PEA arrest, unknown etiology could be multifactorial -ROSC in 15 minutes -patient in shock, initially was on maxed out on 3 pressors -currently on Levophed and vasopressin, continue to maintain mean arterial pressures > 65 mmHg for adequate end organ perfusion -lactic acid trending down -continue to monitor urine output and renal function -cardiology following the patient Echocardiogram 07/10/2022 EF of 55%, hypokinesis of apical inferior and apical lateral jaime, right atrial chamber dimension is severely enlarged, left atrial chamber dimension is severely enlarged, moderate tricuspid regurg, moderate pulmonary hypertension with RVSP of 56 mmHg, [id number] mitral valve regurg (2) Shock: Code(s): R57.9 - Shock, unspecified Status: Acute Assessment and Plan: As above likely related to cardiac arrest, septic shock -07/09: Blood cultures negative x2 -07/09 sputum culture positive for streptococcal pneumonia -07/09: MRSA screen is negative -07/10: Blood cultures preliminary report is negative x2 -07/10: Urine cultures, no growth -07/11: Mixed bacterial tommy continue vancomycin, imipenem and azithromycin (3) Acute respiratory failure: Code(s): J96.00 - Acute respiratory failure, unspecified whether with hypoxia or hypercapnia Status: Acute Assessment and Plan: Acute respiratory failure likely related to cardiac arrest, pneumonia,, ARDS -intubated on 07/10/2022 -continue CMV mode of ventilation, low tidal volume strategy -currently on peep of 5 and 50% FiO2 with adequate O2 sats and PO2 on the ABGs -chest x-ray this morning: Stable diffuse bilateral airspace disease which may represent pneumonia or edema -ABGs reviewed, ventilator settings adjusted -continue bronchodilators -sedated with fentanyl and Versed infusion 07/09/2022 urine pneumococcal antigen, not detected -07/09/2022 urine Legionella pending (4) Pneumonia: Code(s): J18.9 - Pneumonia, unspecified organism Status: Acute Assessment and Plan: Bilateral pneumonia, chest x-ray as above -continue antibiotics as above (5) Acute renal failure: Code(s): N17.9 - Acute kidney failure, unspecified Status: Acute Assessment and Plan: Acute kidney injury likely related shock, infectious process, pre renal azotemia, ATN, attention, vasopressors -ultrasound is normal CK was normal -patient receiving maintenance IV fluids -appreciate nephrology following the patient, -urine output has improved, creatinine trending down -continue to monitor urine output, renal function electrolytes Hyponatremia: Could be related to influenza, pneumonia, acute kidney injury, diuretics, possible malignancy (CTA chest report) -could be SIADH -patient receiving 3% saline at 30 mL/hour for 6 hours per Nephrology (6) Anemia: Code(s): D64.9 - Anemia, unspecified Status: Acute Assessment and Plan: Anemia could be multifactorial likely related to GI bleed, and deficiency anemia, renal dysfunction -appreciate hematology following the patient -patient has been started on IV iron -haptoglobin pending -GI evaluation recommendation, no intervention at this time -stool for occult blood was positive on 07/11/2022 -07/12/2022: Hemoglobin 6.9 this morning, will transfuse 1 unit of packed RBCs (7) Pancytopenia: Code(s): D61.818 - Other pancytopenia Status: Acute Assessment and Plan: Pancytopenia and leukopenia likely related to critical care illness versus possible underlying malignancy -patient started on Neupogen - will continue to monitor (8) Diabetes mellitus: Qualifiers: Diabetes mellitus type: type 2 Diabetes mellitus fpc insulin use: without terminal manager use Diabetes mellitus complicat
--- NOTE | 2022-07-12 14:01 | WPDGICN ---
Assessment and Plan Assessment and plan (1) Pancytopenia: Code(s): D61.818 - Other pancytopenia Status: Acute Assessment and Plan: Pancytopenia of uncertain etiology. Cannot exclude underlying liver dysfunction. Or hematologic process. Continue to monitor closely for signs of GI blood loss. There is some concern patient has an underlying iron deficiency anemia. Recent iron studies are suggestive of iron deficiency. Will monitor and follow closely at present. Patient at risk for stress ulceration or gastritis giving current respiratory failure and ventilator management. (2) Acute respiratory failure: Code(s): J96.00 - Acute respiratory failure, unspecified whether with hypoxia or hypercapnia Status: Acute Assessment and Plan: Patient now on ventilator after cardiopulmonary arrest. Management per automobile damage field appraiser service. (3) Cardiac arrest: Code(s): I46.9 - Cardiac arrest, cause unspecified Status: Acute Assessment and Plan: Elevated troponins noted after cardiac arrest. (4) COPD exacerbation: Code(s): J44.1 - Chronic obstructive pulmonary disease with (acute) exacerbation Status: Acute (5) Paroxysmal atrial fibrillation: Code(s): I48.0 - Paroxysmal atrial fibrillation Status: Acute (6) Elevated LFTs: Code(s): R79.89 - Other specified abnormal findings of blood chemistry Status: Acute Assessment and Plan: Elevated LFTs noted to become elevated after his cardiopulmonary arrest. This likely is related to shock liver. Would not pursue invasive testing initially however if LFTs remain elevated eventual scanning of the liver may be of some benefit. Likely remain to to hypotensive episode during his cardiopulmonary arrest. Will follow conservatively at this point. GI Consult Note Consult date/time: 07/12/22 14:01 Reason for consult: Elevated LFTs. HPI: Dmitri Bergeron is a 62 year old male I am asked to see at the request of the automobile damage field appraiser service because of elevated LFTs. Patient admitted the hospital 07/09/2021. Patient felt to have exacerbation of COPD plus underlying congestive heart failure. On 07/10/2022 patient experienced a cardiopulmonary arrest with pulseless electrical activity. Subsequently was placed on the ventilator and as per currently unresponsive. after the arrest patient was noted to have elevated as LFTs. Patient unable to add any useful history at this time. Review of Systems Review of Systems: ROS unobtainable: Yes unobtainable due to endotracheal tube PMFSH Past Medical History Medical History Afib Anemia Arthritis CAD (coronary artery disease) Cellulitis Constipation COPD (chronic obstructive pulmonary disease) Depression Hypokalemia Insomnia, unspecified Iron deficiency anemia Memory loss TIFFANIE (obstructive sleep apnea) Osteoarthritis of first carpometacarpal joint of right hand Peripheral arterial disease xray 06/26 Plantar fasciitis, bilateral Presence of cardiac pacemaker Pulmonary hypertension Venous insufficiency (chronic) (peripheral) Venous stasis ulcer of ankle limited to breakdown of skin Vertigo Surgical History Surgical History H/O colonoscopy 03/2021 per patient questionnaire History of coronary artery bypass graft x 2012 History of maze procedure ablation for atrial fib History of permanent cardiac pacemaker placement 10/2020 per patient questionnaire Family History Family History Other Arthritis Asthma Depression Diabetes mellitus Heart disease Social History Social History Smoking packs per day: 1 Smoking cigarettes per day: 20.0 Years smoked: 30 Smoking pack-years: 30.00 Smoking status: Current some day smoker Tobacc
--- NOTE | 2022-07-12 14:07 | PCRCNOTE ---
Window of time for administration has passed. See next scheduled administration.
--- NOTE | 2022-07-12 14:12 | P.PNNP_ITS ---
Progress Note: A&P Assessment and Plan (1) BECKY (acute kidney injury): Code(s): N17.9 - Acute kidney failure, unspecified Status: Acute Assessment and Plan: * normal baseline creatinine * evaluation to date: * FeUrea seems to support prerenal azotemia * renal ultrasound normal * CK is normal * UA is bland except for 1+ blood but no red cells. * He is still making some urine. 700cc yesterday and 450 overnight. * His urine is yellow. I looked at it under the microscope and there are tubular epithelial cells, muddy brown casts, and no white cell casts, dysmorphic red cells, or red cell casts. This looks like ATN due to low blood pressure and dehydration. * His creatinine has dropped to 1.8. * Urine output increased. One thousand four hundred yesterday and 550 overnight. * Blood pressure still soft. On 8 mics of Levophed and 0.03 of vasopressin. * Will continue to observe * discussed with Dr Lawson (2) Hyponatremia: Code(s): E87.1 - Hypo-osmolality and hyponatremia Status: Acute Assessment and Plan: * normal sodium at baseline * admitted with sodium of 124 * multiple risk factors: * influenza/pneumonia * BECKY/ARF * diuretics * known COPD * possible malignancy? (see CT of chest results) * TSH is normal. Cortisol is pending . The this was not done. Will reorder. osmolality tests are pending chest x-ray shows diffuse bilateral airspace disease, unclear if fluid or pneumonia. The patient is emaciated. Could he have an occult cancer? * Sodium level dropped further. He is getting obligate IV fluids that are hypotonic. I ordered some 3% saline to be given to bring the sodium level up a little bit. (3) Acute respiratory failure: Code(s): J96.00 - Acute respiratory failure, unspecified whether with hypoxia or hypercapnia Status: Acute Assessment and Plan: * On the ventilator. * due influenza and pneumonia * Pulmonary consulted * Intubated. (4) Influenza: Code(s): J11.1 - Influenza due to unidentified influenza virus with other respiratory manifestations Status: Acute Assessment and Plan: * as noted by admission testing * on Tamiflu (5) Pneumonia: Code(s): J18.9 - Pneumonia, unspecified organism Status: Acute Assessment and Plan: * concern is for aspiration coupled with viral +/- bacterial etiology * on broad spectrum antibiotics * on Tamiflu * oxygen Ventilator with full support. (6) Chronic diastolic (congestive) heart failure: Code(s): I50.32 - Chronic diastolic (congestive) heart failure Status: Chronic Assessment and Plan: * Cardiology following * echo shows good LV ejection fraction, moderate pulmonary hypertension, moderate TR, moderate MR, severe biatrial enlargement. * follow volume status carefully given respiratory issues and BECKY (7) Anemia: Code(s): D64.9 - Anemia, unspecified Status: Acute Assessment and Plan: * presumably due to BECKY/ARF along with acute illness * Hemoglobin Dropped to 6.9. * GI blood loss noted * Getting a blood transfusion (8) Diabetes mellitus: Qualifiers: Diabetes mellitus type: type 2 Diabetes mellitus technical report writer insulin use: without technical report writer use Diabetes mellitus complication status: without complication Qualified Code(s): E11.9 - Type 2 diabetes mellitus without complications Code(s): E11.9 - Type 2 diabetes mellitus without complic
--- NOTE | 2022-07-12 14:12 | PM.PNNEP ---
Progress Note: A&P Assessment and Plan (1) BECKY (acute kidney injury): Code(s): N17.9 - Acute kidney failure, unspecified Status: Acute Assessment and Plan: normal baseline creatinine evaluation to date: FeUrea seems to support prerenal azotemia renal ultrasound normal CK is normal UA is bland except for 1+ blood but no red cells. He is still making some urine. 700cc yesterday and 450 overnight. His urine is yellow. I looked at it under the microscope and there are tubular epithelial cells, muddy brown casts, and no white cell casts, dysmorphic red cells, or red cell casts. This looks like ATN due to low blood pressure and dehydration. His creatinine has dropped to 1.8. Urine output increased. One thousand four hundred yesterday and 550 overnight. Blood pressure still soft. On 8 mics of Levophed and 0.03 of vasopressin. Will continue to observe discussed with Dr Lawson (2) Hyponatremia: Code(s): E87.1 - Hypo-osmolality and hyponatremia Status: Acute Assessment and Plan: normal sodium at baseline admitted with sodium of 124 multiple risk factors: influenza/pneumonia BECKY/ARF diuretics known COPD possible malignancy? (see CT of chest results) TSH is normal. Cortisol is pending . The this was not done. Will reorder. osmolality tests are pending chest x-ray shows diffuse bilateral airspace disease, unclear if fluid or pneumonia. The patient is emaciated. Could he have an occult cancer? Sodium level dropped further. He is getting obligate IV fluids that are hypotonic. I ordered some 3% saline to be given to bring the sodium level up a little bit. (3) Acute respiratory failure: Code(s): J96.00 - Acute respiratory failure, unspecified whether with hypoxia or hypercapnia Status: Acute Assessment and Plan: On the ventilator. due influenza and pneumonia Pulmonary consulted Intubated. (4) Influenza: Code(s): J11.1 - Influenza due to unidentified influenza virus with other respiratory manifestations Status: Acute Assessment and Plan: as noted by admission testing on Tamiflu (5) Pneumonia: Code(s): J18.9 - Pneumonia, unspecified organism Status: Acute Assessment and Plan: concern is for aspiration coupled with viral +/- bacterial etiology on broad spectrum antibiotics on Tamiflu oxygen Ventilator with full support. (6) Chronic diastolic (congestive) heart failure: Code(s): I50.32 - Chronic diastolic (congestive) heart failure Status: Chronic Assessment and Plan: Cardiology following echo shows good LV ejection fraction, moderate pulmonary hypertension, moderate TR, moderate MR, severe biatrial enlargement. follow volume status carefully given respiratory issues and BECKY (7) Anemia: Code(s): D64.9 - Anemia, unspecified Status: Acute Assessment and Plan: presumably due to BECKY/ARF along with acute illness Hemoglobin Dropped to 6.9. GI blood loss noted Getting a blood transfusion (8) Diabetes mellitus: Qualifiers: Diabetes mellitus type: type 2 Diabetes mellitus jail insulin use: without assistant terminal manager use Diabetes mellitus complication status: without complication Qualified Code(s): E11.9 - Type 2 diabetes mellitus without complications Code(s): E11.9 - Type 2 diabetes mellitus without complications Status: Chronic Assessment and Plan: management per hospitalists Plan pancytopenia. Discussed with Dr. Villarreal Subjective Date/time seen: 07/12/22 14:12 Interval history: 07/10 Patient is lying flat in bed. He has a BiPAP mask on. Nursing said that he was short of breath with nasal cannula. Now trying BiPAP. Another blood gas will be drawn and if patient does not any better will consider going to the ICU. The patient himself is a bit g
[2022-07-12] MEDS: NOREPINEPHRINE 8 MG/D5W 250 ML 8 MG/250 ML BAG 15 MG IV CONT (17:50)
[2022-07-12] MEDS: VASOPRESSIN INJ 100 UNITS in DEXTROSE 5% 95 ML IV CONT (17:51)
[2022-07-12 21:10] LABS: Glucose Point of Care 92 mg/dl (65-105)
[2022-07-13] VITALS (26 sets, daily range): BP systolic 97–113; BP diastolic 42–48; PULSE 75–82; RESP 17–25; TEMP 36.2–37.4; O2SAT 91–96
[2022-07-13 00:38] LABS: Glucose Point of Care 83 mg/dl (65-105)
[2022-07-13] MEDS: ALBUTEROL SULFATE NEB 2.5 MG/3 ML INH INHALATION ×4 (01:00→11:54)
[2022-07-13] MEDS: IPRATROPIUM BR 0.02% INH SOLN 0.5 MG/2.5 ML VIAL INHALATION ×4 (01:00→11:54)
[2022-07-13 04:20] LABS: Glucose Point of Care 99 mg/dl (65-105)
[2022-07-13 05:15] LABS: Lactic Acid Reflex 3.5 mmol/L (0.7-2.0)
[2022-07-13 05:18] LABS: INR 1.8; Partial Thromboplastin Time 47.5 SECONDS (22.3-36.8); Prothrombin Time 19.9 Seconds (11.1-14.7)
[2022-07-13 05:20] LABS: Hematocrit 26.2 % (42.0-52.0); Hemoglobin 8.2 g/dL (14.0-18.0); Immature Platelet Fraction Pct 12.7 % (0.9-11.2); Mean Corpuscular HGB Conc 31.3 g/dl (32-36); Mean Corpuscular Hemoglobin 24.6 pg (26-34); Mean Corpuscular Volume 78.7 fl (80-100); Platelet Count Result 82 k/mm3 (150-375); Red Blood Count 3.33 M/mm3 (4.6-6.20); Red Cell Distribution Width 23.7 % (11.5-14.5); White Blood Count 12.1 K/mm3 (4.5-10.0)
[2022-07-13 05:36] LABS: Alanine Aminotransferase 44 U/L (6-50); Alkaline Phosphatase 78 U/L (38-126); Anion Gap 8 mmol/L (8-16); Aspartate Amino Transferase 103 U/L (17-59); Bilirubin,Total 5.1 mg/dL (0.2-1.3); Blood Urea Nitrogen 83 mg/dL (9-20); Calcium 6.8 mg/dL (8.4-10.2); Carbon Dioxide 32 mmol/L (22-30); Chloride 83 mmol/L (98-107); Estimated CRCL calculation 38 ml/min; Estimated Glomerular Filt Rate 39; Glucose 85 mg/dL (65-110); Lipase 12 U/L (23-300); Magnesium 2.1 mg/dL (1.6-2.3); Phosphorus 2.7 mg/dL (2.5-4.5); Potassium 2.8 mmol/L (3.4-5.0); Sodium 123 mmol/L (137-145)
[2022-07-13 05:46] LABS: Band Neutrophils Percent 51 % (0-6); Eosinophils Absolute Manual 0.12 K/mm3 (0.02-0.5); Eosinophils Percent Manual 1 % (0-4); Lymphocytes Absolute Manual 0.12 K/mm3 (1.1-4.5); Metamyelocytes Percent 20 %; Monocytes Absolute Manual 0.36 K/mm3 (0.1-0.90); Monocytes Percent Manual 3 % (3-9); Myelocytes Percent 4 %; Neutrophils Absolute Manual 8.59 K/mm3 (1.3-6.7); Neutrophils Percent Manual 20 % (46-73); Nucleated Red Blood Cells 1 %; Platelet Estimate Decreased (Adequate); Total Cells Counted 100
[2022-07-13 05:47] LABS: Anisocytosis 1+ (NORMAL); Hypochromasia 2+ (NORMAL); Macrocytosis 1+ (NORMAL); Ovalocytes 1+ (NORMAL); Poikilocytosis 1+ (NORMAL); Schistocytes None Seen (NORMAL)
[2022-07-13] MEDS: POTASSIUM CHLORIDE 20 MEQ PACKET (FOR LIQUID) 40 MEQ FEED TUBE (06:15)
[2022-07-13] MEDS: KCL 40 MEQ/WATER 100 ML 100 ML 25 ML IVPB (06:16)
[2022-07-13 06:17] LABS: Alveolar/Arterial O2 Gradient 288.8 mmHg; Base Excess ABG 5.2 mEq/l (+/-2.0); Carboxyhemoglobin 0.3 % THb (0-2.0); Fractional Inspired Oxygen 60 %; HCO3 ABG 33.1 mEq/l (22.0-26.0); Methemoglobin ABG 0.4 %THb (0-1.5); Oxygen Content ABG 11.2 %vol (16.0-22.0); Oxyhemoglobin 87.9 % THb (90.0-100.0); PO2 ABG 61.2 mmHg (80.0-100.0); PO2 FiO2 Ratio Arterial Blood 1.02 %; Reduced Hemoglobin 11.4 %THb (0-5.0)
[2022-07-13 06:18] LABS: PCO2 ABG 70.7 mmHg (35.0-45.0); pH ABG 7.288 (7.350-7.450)
[2022-07-13 06:19] LABS: Device VENTILATOR; Modified Allen's Test Unable to perform; Oxygen Saturation ABG 87.7 % (95.0-100.0); Site Drawn RIGHT RADIAL
[2022-07-13 06:20] LABS: Arterial Blood Gas PEEP 5 cmH2O; Arterial Blood Gas Tidal Volume 400 ml; Arterial Blood Gas Vent Mode CMV; Arterial Blood Gas Ventilator rate 24 /MIN
[2022-07-13] MEDS: NOREPINEPHRINE 8 MG/D5W 250 ML 8 MG/250 ML BAG 22.5 MG IV CONT (06:43)
[2022-07-13 07:59] LABS: Reflex Lactic Acid Yes or No Add Lactic
[2022-07-13 08:04] LABS: Glucose Point of Care 81 mg/dl (65-105)
[2022-07-13 08:58] LABS: Lactic Acid 3.5 mmol/L (0.7-2.0)
--- NOTE | 2022-07-13 09:01 | P.NEURO_ITS ---
Neurology EEG Report General Information Date of Study: 07/13/22 TEST Routine EEG DIAGNOSIS Anoxic brain injury CONDITION OF RECORDING Sedated EEG NUMBER [id number] CLINICAL HISTORY Patient is in ICU on ventilator and sedated s/p cardiac arrest. EEG DESCRIPTION The recording is continuous. There is no posterior dominant rhythm or anterior posterior gradient. The background consists of diffuse, delta range activity with intermittent theta range activity. There are no significant asymmetries in the background. Normal sleep architecture was not observed. There are no epileptiform discharges or electrographic seizures. Activation procedures were unable to be performed due to patient's critical status. IMPRESSION This recording is an abnormal routine EEG due to the presence of generalized slo wing of the background. This can be seen in the setting of encephalopathy. There are no epileptiform features or electrographic seizures noted. Clinical correlation is recommended.
[2022-07-13] MEDS: OSELTAMIVIR PHOSPHATE ORAL SUSP 30 MG/5 ML SYRINGE PO (09:12)
[2022-07-13] MEDS: FILGRASTIM-SNDZ 480 MCG/0.8 ML SYRINGE SUB-Q (09:12)
[2022-07-13] MEDS: SODIUM CHLORIDE 500 MG TABLET 1000 MG PO (09:13)
[2022-07-13] MEDS: MINERAL OIL/WHITE PETROLATUM OINTMENT 1 APPLIC EACH EYE (09:13)
--- NOTE | 2022-07-13 10:22 | WPDNEUROPN ---
Progress Note: A&P Assessment and Plan (1) Encephalopathy: Code(s): G93.40 - Encephalopathy, unspecified Status: Acute (2) Anoxic brain injury: Code(s): G93.1 - Anoxic brain damage, not elsewhere classified Status: Acute (3) Cardiac arrest: Code(s): I46.9 - Cardiac arrest, cause unspecified Status: Acute (4) Shock: Code(s): R57.9 - Shock, unspecified Status: Acute (5) Acute respiratory failure: Code(s): J96.00 - Acute respiratory failure, unspecified whether with hypoxia or hypercapnia Status: Acute Plan Dmitri Bergeron is a 62 year old male with a history of atrial fibrillation, CAD s/p CABG, COPD who presented on 07/09 due to respiratory distress, found to be influenza A positive, complicated by respiratory failure and subsequent cardiac arrest. Concern for post-arrest anoxic brain injury. Patient is currently DNR. Routine EEG showed generalized slowing which could be indicative of encephalopathy and residual sedation effect. CT showed R frontal infarct. Exam since sedation was turned off is still poor. It's likely that CT is not showing full extent of injury. Discussed neuroimaging and EEG results with family members at bedside. - Unable to get MRI due to patient's critical status and pacemaker - Will continue to follow neuro exam Subjective Date/time seen: 07/13/22 10:22 Interval history: Dmitri Bergeron is a 62 year old male with a hitory of atrial fibrillation, CAD s/p CABG, COPD who presented on 07/09 due to respiratory distress. Patient was found to be influenza A positive in the emergency room. CTA of the chest showed changes concerning for possible pneumonia. Patient was admitted and started on antibiotics. The following day, patient was placed on BIPAP due to hypercapnia. On the same day, patient had code blue event due to PEA arrest. He received 7 rounds of epinephrine with ROSC acheived after 14 minutes. He arrived to the ICU intubated and on Levophed as well as fentanyl and midazolam. CT head showed no evidence of acute changes. There have not been any concerns for seizure-like activity. Repeat EEG done this AM -- showed generalized slowing but no epileptiform features. CT this AM showed new area of hypodensity in the R frontal lobe, not seen on CT from 07/10, suggestive of acute vs subacute infarct. Sedation is off. Niece and sister are at bedside, they have not noted any changes since the sedation was discontinued. Review of Systems Review of Systems: ROS unobtainable: Yes unobtainable due to endotracheal tube, unobtainable due to medical condition and unobtainable due to mental status Exam Const: Other: off sedation Eyes: Other: Left eye reactive to light, unable to visualize right pupil due to upward deviation of right eye Resp: Other: intubated, mechanically ventillated Cardio: Rate: regular rate GI: GI Palp: Yes Soft to palpation Urinary Catheter: Urinary Catheter: patent and draining Skin: General skin exam: normal color Neuro: Other: R pupil not visualized due to upward deviation, L pupil reactive to light. Face appears symmetric, no cough/gag, no spontaneous eye opening or movement of extremities. No eye opening or withdrawal of extremities to voice or noxious stimuli, does not follow commands. Extrem: General: edema Objective Data Vital Signs Vital Signs: Vital Signs - 24 hr 07/12/22 10:44 07/12/22 10:46 07/12/22 11:02 Temperature Pulse Rate 80 82 79 Respiratory Rate 24 H 24 H Blood Pressure Pulse Oximetry 90 Oxygen Delivery Mechanical Ventilation Fraction of Inspired Oxygen 40 07/12/22 11:17 07/12/22 12:17 07/12/22 14:02 Temperature 36.3 C L 36.3 C L 36.3 C L Pulse Rate 80 80 80 Respiratory Rate 24 H 24 H 24 H Blood Pressure 104/54 L 108/53 L 104/49 L Pulse Oximetry 98 97 95 Oxygen Delivery Fraction of Inspired Oxygen 07/12/22 14:07 07/12/22 14:10 07/12/22 12:00 Temperature
[2022-07-13] MEDS: CALCIUM GLUC 2,000 MG/NS 100ML 2,000 MG/100 ML BAG 100 MG IVPB (10:54)
[2022-07-13] MEDS: PANTOPRAZOLE SODIUM IV 40 MG VIAL IV PUSH (10:56)
--- NOTE | 2022-07-13 11:13 | PCFNICU ---
ICU Rounding Note: Pt current nutrition is Nepro at 20 ml/hr with plans to advance to goal rate of 50 ml/hr. Nutrition recommendation: 45 ml/hr for goal rate. Last recorded weight is 69.7 kg. Bowel Motility: FMS Labs Reviewed:Cr 1.8,K 2.8,Na 123, Alb 3.0 Meds Noted:Fentanyl, Versed, Levophed, Zithromax Skin: WNL Additional Notes: Patient remains on mechanical vent and tube feedings of Nepro. Tube feeding is currently at 20 ml/hr with plans to advance rate to goal of 50 ml/hr. Recommend no more than 45 ml/hr for goal rate. Flush 30 ml q [address] Head [address] today. Following daily in ICU rounds. Monitor intake, wt, labs every Sunday and Sunday.
--- NOTE | 2022-07-13 11:30 | PM.CNGS ---
Assessment and Plan Assessment and plan (1) Cholecystitis with cholelithiasis: Code(s): K80.10 - Calculus of gallbladder with chronic cholecystitis without obstruction <Domi Lemos MANAGER SPEECH - Last Filed: 07/13/22 13:48> Status: Acute <CAROL Stevenson - Last Filed: 07/13/22 13:48> Assessment and Plan: Elevated LFTs with total bilirubin 5.1 today. Abdominal US reviewed and showed cholelithiasis with cholecystitis. Discussed the patient's case and plan with Dr. Welch. Had a long discussion with family regarding guarded prognosis and treatment options. The patient is critically ill and not stable for any surgical intervention at this time. We would recommend continuing with conservative medical management with IV antibiotics and could consider having the Radiologist perform bedside placement of a percutaneous cholecystostomy tube. Family wishes to talk to Neurology today and decide on what their plan is to continue with full aggressive treatment versus comfort measures. Will continue to follow along and depending on how he progresses and the family's wishes, we could consider cholecystostomy tube placement. Will continue to follow along. <Domi Lemos MANAGER SPEECH - Last Filed: 07/13/22 13:48> (2) Shock: Code(s): R57.9 - Shock, unspecified <Domi Lemos MANAGER SPEECH - Last Filed: 07/13/22 13:48> Status: Acute <Domi Lemos MANAGER SPEECH - Last Filed: 07/13/22 13:48> Assessment and Plan: Likely related to cardiac arrest, septic shock. Blood cx negative. Overall downward trend of need for vasopressors from 3 to 1 infusion, still on Levophed. Continue broad-spectrum IV antibiotics and critical care management. Monitor labs. See plan above. <Domi Lemos MANAGER SPEECH - Last Filed: 07/13/22 13:48> (3) Elevated LFTs: Code(s): R79.89 - Other specified abnormal findings of blood chemistry <Domi Lmeos MANAGER SPEECH - Last Filed: 07/13/22 13:48> Status: Acute <Domi Lemos MANAGER SPEECH - Last Filed: 07/13/22 13:48> Assessment and Plan: Elevated LFTs with total bilirubin climbing up to 5.1 today. Trending up since his cardiac arrest. Could be related to shock liver. Abdominal US showed cholelithiasis with cholecystitis. See plan above. Trend labs. <CAROL Stevenson - Last Filed: 07/13/22 13:48> (4) Cardiac arrest: Code(s): I46.9 - Cardiac arrest, cause unspecified <CHATO StevensonP - Last Filed: 07/13/22 13:48> Status: Acute <Domi Lemos MANAGER SPEECH - Last Filed: 07/13/22 13:48> Assessment and Plan: S/p cardiac arrest on 07/10/22. Continue critical care management. Still on ventilator in the ICU and obtunded. <CHATO StevensonP - Last Filed: 07/13/22 13:48> (5) Encephalopathy: Code(s): G93.40 - Encephalopathy, unspecified <Domi Lemos MANAGER SPEECH - Last Filed: 07/13/22 13:48> Status: Acute <Domi Lemos, MANAGER SPEECH - Last Filed: 07/13/22 13:48> Assessment and Plan: Neurology following, EEG and repeat CT head done today. CT suggests small infarct in right frontal lobe not seen on previous CT from 07/10/22 that is likely acute or subacute. <Domi Lemos, MANAGER SPEECH - Last Filed: 07/13/22 13:48> (6) Pancytopenia: Code(s): D61.818 - Other pancytopenia <Domi Lemos, MANAGER SPEECH - Last Filed: 07/13/22 13:48> Status: Acute <Domi BJen Lemos, MANAGER SPEECH - Last Filed: 07/13/22 13:48> Assessment and Plan: Hematology following. <Domi Lemos, MANAGER SPEECH - Last Filed: 07/13/22 13:48> (7) BECKY (acute kidney injury): Code(s): N17.9 - Acute kidney failure, unspecified <Domi Lemos, MANAGER SPEECH - Last Filed: 07/13/22 13:48> Status: Acute <Domi B. Wasmuth, MANAGER SPEECH - Last Filed: 07/13/22 13:48> (8) Acute respiratory failure: Code(s): J96.00 - Acute respiratory failure, unspecified whether with hypoxia or hypercapnia <CAROL Stevenson - Last Filed: 07/13/22 13:48> Status:
[2022-07-13 12:36] LABS: Glucose Point of Care 81 mg/dl (65-105)
--- NOTE | 2022-07-13 13:13 | WPDINTPN ---
Progress Note: A&P Assessment and Plan (1) Cardiac arrest: Code(s): I46.9 - Cardiac arrest, cause unspecified Status: Acute Assessment and Plan: 07/10:Patient with PEA arrest, unknown etiology could be multifactorial -ROSC in 15 minutes -patient in shock, initially was on maxed out on 3 pressors -currently on Levophed and vasopressin, continue to maintain mean arterial pressures > 65 mmHg for adequate end organ perfusion Echocardiogram 07/10/2022 EF of 55%, hypokinesis of apical inferior and apical lateral jaime, right atrial chamber dimension is severely enlarged, left atrial chamber dimension is severely enlarged, moderate tricuspid regurg, moderate pulmonary hypertension with RVSP of 56 mmHg, [id number] mitral valve regurg (2) Shock: Code(s): R57.9 - Shock, unspecified Status: Acute Assessment and Plan: As above likely related to cardiac arrest, septic shock -07/09: Blood cultures negative x2 -07/09 sputum culture positive for streptococcal pneumonia -07/09: MRSA screen is negative -07/10: Blood cultures preliminary report is negative x2 -07/10: Urine cultures, no growth -07/11: Mixed bacterial tommy On vancomycin, imipenem and azithromycin (3) Acute respiratory failure: Code(s): J96.00 - Acute respiratory failure, unspecified whether with hypoxia or hypercapnia Status: Acute Assessment and Plan: Acute respiratory failure likely related to cardiac arrest, pneumonia,, ARDS -intubated on 07/10/2022 -continue CMV mode of ventilation, low tidal volume strategy -currently on peep of 5 and 50% FiO2 with adequate O2 sats and PO2 on the ABGs -chest x-ray this morning: Stable diffuse bilateral airspace disease which may represent pneumonia or edema -ABGs reviewed, ventilator settings adjusted -continue bronchodilators -sedated with fentanyl and Versed infusion 07/09/2022 urine pneumococcal antigen, not detected -07/09/2022 urine Legionella pending (4) Pneumonia: Code(s): J18.9 - Pneumonia, unspecified organism Status: Acute Assessment and Plan: Bilateral pneumonia, chest x-ray as above On antibiotics as above (5) Acute renal failure: Code(s): N17.9 - Acute kidney failure, unspecified Status: Acute Assessment and Plan: Acute kidney injury likely related shock, infectious process, pre renal azotemia, ATN, attention, vasopressors -ultrasound is normal CK was normal -patient receiving maintenance IV fluids -appreciate nephrology following the patient, -urine output has improved, creatinine trending down -continue to monitor urine output, renal function electrolytes Hyponatremia: Could be related to influenza, pneumonia, acute kidney injury, diuretics, possible malignancy (CTA chest report) -could be SIADH -patient see 3% saline at 30 mL/hour for 6 hours per Nephrology (6) Anemia: Code(s): D64.9 - Anemia, unspecified Status: Acute Assessment and Plan: Anemia could be multifactorial likely related to GI bleed, and deficiency anemia, renal dysfunction -appreciate hematology following the patient -patient has been started on IV iron -haptoglobin pending -GI evaluation recommendation, no intervention at this time -stool for occult blood was positive on 07/11/2022 -07/12/2022: Hemoglobin 6.9 this morning, patient was transfused 1 unit of packed RBCs (7) Pancytopenia: Code(s): D61.818 - Other pancytopenia Status: Acute Assessment and Plan: Pancytopenia and leukopenia likely related to critical care illness versus possible underlying malignancy Patient was treated Neupogen (8) Diabetes mellitus: Qualifiers: Diabetes mellitus type: type 2 Diabetes mellitus penitentiary insulin use: without termite inspector use Diabetes mellitus complication status: without complication Qualified Code(s): E11.9 - Type 2 diabetes mellitus without complications Code(s): E11.9 - Type 2 diabetes [place]
[2022-07-13] MEDS: LORazepam INJ (*CRX) 2 MG/ML VIAL IV PUSH (14:22)
[2022-07-13] MEDS: MORPHINE SULFATE INJ (*CRX) 10 MG/ML AMP 5 MG IV PUSH (14:22)
[2022-07-13 20:19] LABS: Legionella pneumophila Ag Ur Not Detected (Not Detected)
[2022-07-13 21:19] LABS: Haptoglobin 137 mg/dL (43-212)
--- NOTE | 2022-07-14 04:09 | PC.NURSE ---
We spoke with [facility] at this time they have still not decided if he is able to donate will let us know.
--- NOTE | 2022-07-17 12:35 | P.DN_ITS ---
Discharge Summary Date and Time Date of : 07/13/22 Time of : 14:35 Provider Pronounced By: Radha Larose RN and Kerline Horowitz RN Probable Cause of Probable Cause of : Multiorgan failure, cardiac arrest, septic shock, acute respiratory failure, streptococcal pneumonia Summary Hospital Course: 62 year old male with PMH A.fib, COPD/asthma, Anemia, cellulitis, depression, memory loss, history of Maze procedure for ablation for atrial fibrillation, permanent cardiac pacemaker, history of CABG in 2012 presented the ED on 07/09/2022 with complains of shortness of breath, difficulty breathing along with cough and lower extremity edema, flu like symptoms which steadily was getting worse.? In the ER patient was tested positive for influenza A.? Chest CTA showed no evidence of pulmonary embolism, bilateral patchy airspace consolidation predominantly in the lower lobes, left greater than right compatible with pneumonia, this is a chronic superimposed interstitial lung disease/fibrosis..? Mediastinal and bilateral hilar lymphadenopathy.? Lymphoma metastatic disease not excluded.? Patient was initially admitted to the IMU and was being treated with antibiotics.? On 07/10/2022: Patient was hypercapnic, patient was placed on AVAPS by pulmonology, with improvement in his BiPAP in his pCO2, patient was never hypoxic.? Patient had a PEA arrest on 07/10/2022 with ROSC around 15 minutes.? Patient was intubated and was in shock, maxed out on 3 pressors, pancytopenia along with Acute kidney injury.? Patient was transferred to ICU. EEG was done which showed generalized slowing of the background. Ultrasound of abdomen showed cholelithiasis with cholecystitis. Cardiogram rupali wed EF of 55% and hypokinesis of apical area, significantly enlarged right atrium, moderate pulmonary hypertension moderate TR to moderate MR. Sputum culture was positive for streptococcus. He also developed acute renal failure and hyponatremia. Patient was treated with 3% saline by Nephrology for hyponatremia. Two was positive for occult blood and patient was transfused PRBC. He was evaluated by GI. Petra Maxwellgen for neutropenia. I spoke to patient's niece patient's surrogate decision maker and power state's attorney. We discussed patient's current condition including multiorgan failure and guarded prognosis. The CT scan was done which showed a small infarct right frontal lobe. Patient's niece told me that the patient did not want a poor quality of life and in light of patient's multiorgan failure, guarded prognosis he would not want to stay on a ventilator and life supporting measures. She did not see him wanting to go to a care home or living bed-bound. At that time, patient's family decided, in accordance with his wishes, to discontinue all medical therapy and institute comfort measures only.? She called all other family members who visited patient. All other family members were in agreement of patient's wishes. Once the family was ready patient was palliatively extubated on 07/13. Patient and was pronounced at 2:35 p.m. Additional Data Confirmation of as documented by pronouncing clinician: Pupillary Reflex, Palpable Pulses, Response to Stimuli, Heart Tones and Breath Sounds Name of Provider Notified: Dr. Hidalgo Time Provider Notified: 14:35 Provider Requests Autopsy: No Family Requests Autopsy: No Undergraduate Advisor Notified: Yes Date [facility] Notified of : 07/13/22 Time [facility] Notified of : 14:44
== END 2022-07-13 14:35 | disposition expired | DRG 871 ==
LOC: ANHED 00:23 → ANHIMU 02:20 → ANHICU 07-12 13:09 → ANHIMU 07-14 09:16
PROVIDERS: Internal Medicine; Internal Medicine Hematology & Oncology; Internal Medicine Nephrology; Internal Medicine Pulmonary Disease; Nurse Practitioner; Physician Assistant; Admitting Provider Internal Medicine; Emergency Provider Emergency Medicine; PCP Family Medicine Adolescent Medicine; Visit Provider Internal Medicine
DX: A41.9 Sepsis, unspecified organism (principal); J15.4 Pneumonia due to other streptococci; J69.0 Pneumonitis due to inhalation of food and vomit; J96.01 Acute respiratory failure with hypoxia; N17.0 Acute kidney failure with tubular necrosis; R65.21 Severe sepsis with septic shock; K72.00 Acute and subacute hepatic failure without coma; E87.1 Hypo-osmolality and hyponatremia; J44.1 Chronic obstructive pulmonary disease with (acute) exacerbation; I50.32 Chronic diastolic (congestive) heart failure; D61.818 Other pancytopenia; J44.0 Chronic obstructive pulmonary disease with (acute) lower respiratory infection; G93.1 Anoxic brain damage, not elsewhere classified; K80.10 Calculus of gallbladder with chronic cholecystitis without obstruction; I11.0 Hypertensive heart disease with heart failure; E78.2 Mixed hyperlipidemia; I48.0 Paroxysmal atrial fibrillation; Z20.822 Contact with and (suspected) exposure to COVID-19; E11.9 Type 2 diabetes mellitus without complications; Z79.4 Long term (current) use of insulin; E87.6 Hypokalemia; Z95.1 Presence of aortocoronary bypass graft; I46.8 Cardiac arrest due to other underlying condition; Z66 Do not resuscitate; I25.10 Atherosclerotic heart disease of native coronary artery without angina pectoris; I27.20 Pulmonary hypertension, unspecified; J11.1 Influenza due to unidentified influenza virus with other respiratory manifestations; F32.A Depression, unspecified; Z95.0 Presence of cardiac pacemaker; Z82.61 Family history of arthritis; Z83.3 Family history of diabetes mellitus; Z81.8 Family history of other mental and behavioral disorders; Z82.49 Family history of ischemic heart disease and other diseases of the circulatory system; F17.210 Nicotine dependence, cigarettes, uncomplicated; Z79.51 Long term (current) use of inhaled steroids; Z79.84 Long term (current) use of oral hypoglycemic drugs; Z79.899 Other long term (current) drug therapy
CPT/HCPCS: 31500; 36415; 36430; 36600; 70450; 71045; 71275; 76705; 76775; 80048; 80053; 80061; 80074; 80202; 80307; 81001; 81050; 82040; 82247; 82248; 82274; 82375; 82533; 82550; 82570; 82607; 82728; 82746; 82805; 82948; 83010; 83036; 83050; 83540; 83550; 83605; 83690; 83735; 83880; 84075; 84100; 84133; 84156; 84295; 84300; 84443; 84450; 84460; 84466; 84484; 84540; 84550; 85014; 85018; 85025; 85027; 85049; 85055; 85380; 85384; 85610; 85730; 86430; 86850; 86880; 86900; 86901; 86923; 87040; 87070; 87081; 87086; 87106; 87147; 87181; 87186; 87205; 87449; 87636; 87899; 92611; 92950; 93005; 93306; 94002; 94003; 94640; 95816; 96365; 96375; 99285; A9270; C1751; C9113; J0171; J0456; J0610; J0692; J0743; J1644; J1756; J1815; J1940; J2060; J2250; J2270; J2405; J2920; J2930; J3010; J3370; J3475; J3480; J7030; J7040; J7050; J7060; J7131; P9016; P9047; Q5101; Q9967